=== PATIENT | female | born 1975 | race Caucasian/White ===

== ENCOUNTER 2024-03-08 14:24 | Outpatient (AMB) | payer MEDICARE, OTHER, SELFPAY ==
[2024-03-08 14:54] VITALS: BP 126/78; PULSE 62; O2SAT 96; BMI 23.4
--- NOTE | 2024-03-08 14:54 | A.OFFVIS_ITS ---
Vital Signs 03/08/24 14:54 Height 5 ft 1 in Weight 124 lb 1.924 oz BMI 23.4 BP 126/78 Blood Pressure Location Lt brachial Position Sitting Pulse 62 Pulse Source Pulse Oximeter Pulse Oximetry (%) 96 Oxygen Delivery Method Room Air Intake Visit Reasons: CTS/OA Intake Note: Patient presents for follow up on osteoarthritis, carpal tunnel syndrome, and rash on lower left leg. She states it hurts and it's itchy. Allergies adhesive tape Allergy (Mild, Verified 03/08/24 15:01) Rash cefaclor [From CECLOR] Allergy (Unknown, Unverified 03/08/24 15:01) HIVES erythromycin base [ERYTHROMYCIN BASE] Allergy (Unknown, Unverified 03/08/24 15:01) UNK Sulfa (Sulfonamide Antibiotics) [SULFA (SULFONAMIDE ANTIBIOTICS)] Allergy (Unknown, Unverified 03/08/24 15:01) HIVES z pack Allergy (Mild, Uncoded 03/08/24 15:01) hives HPI HPI CTS/OA: Details: She saw Dr. Leo in December and received cortisone injection for carpal tunnel syndrome and R 3rd finger tenosynovitis. Finger numbness and burning returned last week. She is unable to fully bend R 3rd finger. Review of Systems Const All systems reviewed & are unremarkable except as noted in HPI and below Physical Exam Vital Signs: Last Vital Signs Pulse 62 03/08/24 14:54 BP 126/78 03/08/24 14:54 Pulse Ox 96 03/08/24 14:54 Oxygen Delivery Method Room Air 03/08/24 14:54 BMI result Body Mass Index 23.4 Const Other: General: Comfortable Skin: No lesions seen MSK: No synovitis. tenderness to palpate R 3rd palmar aspect of MCP without nodule palpated. She is unable to fully flex R 3rd finger actively and remains flexed at 90 degrees. Passive flexion is intact. Assessment & Plan Assessment & Plan (1) Tenosynovitis of finger: Comment: R 3rd finger. Recurrent. She is unable to flex R 3rd finger actively but passive ROM is intact, which is concerning for flexor tendon pathology such as tendon tear. Code(s): M65.949 - Unspecified synovitis and tenosynovitis, unspecified hand Category: Medical Plan: MR Right hand without contrast RTC 1 month (2) Carpal tunnel syndrome: Comment: Bilateral. Last cortisone injection from Dr. Leo ATC 12/2023 wore off. Too soon for cortisone injection Code(s): G56.00 - Carpal tunnel syndrome, unspecified upper limb Category: Medical Qualifiers: Laterality: bilateral Qualified Code(s): G56.03 - Carpal tunnel syndrome, bilateral upper limbs Plan: RTC 1 month for bilateral cortisone injections to treat carpal tunnel syndrome Orders: Orders Aspartate Amino Transferase Today Z79.60 - intermodal owner operator truck driver (current) use of unspecified immunomodulators and immunosuppressants Alanine Aminotransferase Today Z79.60 - correction (current) use of unspecified immunomodulators and immunosuppressants Creatinine Today Z79.60 - intermodal owner operator truck driver (current) use of unspecified immunomodulato rs and immunosuppressants MR hand RT wo con Today M65.949 - Unspecified synovitis and tenosynovitis, unspecified hand Coding Level of Care Code Est Pt Level 3 (41682) Complex EM visit Add On G2211 Diagnoses Tenosynovitis of finger M65.949 Bilateral carpal tunnel syndrome G56.03 Laterality: bilateral
== END 2024-03-08 15:46 | disposition home or self-care (01) ==
PROVIDERS: PCP Internal Medicine; Visit Provider Internal Medicine Rheumatology
DX: M65.949 Unspecified synovitis and tenosynovitis, unspecified hand (principal); G56.03 Carpal tunnel syndrome, bilateral upper limbs
CPT/HCPCS: 99213; G2211

== ENCOUNTER → 2024-03-08 14:24 | Outpatient (BNVA) | payer MEDICARE, OTHER, SELFPAY | PROVIDERS: PCP Internal Medicine; Visit Provider Internal Medicine Rheumatology | DX: M65.941 Unspecified synovitis and tenosynovitis, right hand (principal); G56.03 Carpal tunnel syndrome, bilateral upper limbs | CPT/HCPCS: 99212 ==

== ENCOUNTER 2024-03-17 18:34 | Outpatient (REF) | payer MEDICARE, OTHER, SELFPAY ==
--- NOTE | ~2024-03-17 | MR_ITS ---
EXAMINATION: MR HAND WITHOUT CONTRAST RIGHT CLINICAL INFORMATION: Unspecified synovitis and tenosynovitis, unspecified hand M65.949. Tendon tear. Unable to flex right 3rd finger. Axial orientation upside down. Throbbing pain that stat at the middle finger joint sensitive to touch. I can only bend it to a certain extent, want a doctor to look at middle finger. Arthritis. Carpel to nail. Since 5 years ongoing getting worse. COMPARISON: None available. TECHNIQUE: Multisequence MR imaging of the right hand was obtained without contrast on a high-field strength scanner. FINDINGS: BONE: No marrow edema or evidence of acute osseous injury. No fracture or dislocation. Grossly intact articular cartilage. No concerning lytic or blastic osseous lesion. MUSCLES/TENDONS: The visualized flexor and extensor tendons are intact. Specifically, the third flexor digitorum tendon is unremarkable without tendon tearing or tenosynovitis. No muscle edema or evidence of acute injury. LIGAMENTS: Intact collateral ligaments. SOFT TISSUES: Synovial recess versus ganglion cyst volar to the radial styloid measuring up to 1.2 cm in greatest dimension. No soft tissue mass. Trace distal radial ulnar joint effusion. Triangular fibrocartilage complex not well evaluated on the large [id number]-[id number]-hwzp imaging. MR/MR hand RT wo con IMPRESSION: 1. The third flexor digitorum tendon is intact without evidence of acute injury. 2. Synovial recess versus ganglion cyst volar to the radial styloid measuring up to 1.2 cm. 3. Trace distal radial ulnar joint effusion. Triangular fibrocartilage complex not well evaluated on the large mlbxv-bd-vnto imaging. Electronically signed by: Mauro Murray MD 03/20/2024 01:52 PM EST
== END 2024-03-17 18:35 | disposition home or self-care (01) ==
LOC: HO.MRI 18:34
PROVIDERS: PCP Internal Medicine; Visit Provider Internal Medicine Rheumatology
DX: M65.941 Unspecified synovitis and tenosynovitis, right hand (principal)
CPT/HCPCS: 73218

== ENCOUNTER 2024-03-29 14:38 | Outpatient (AMB) | payer MEDICARE, OTHER, SELFPAY ==
[2024-03-29 15:00] VITALS: BP 140/80; PULSE 56; O2SAT 95; BMI 23.4
--- NOTE | 2024-03-29 15:00 | MHC.OFFVIS ---
Vital Signs 03/29/24 15:00 Height 5 ft 1 in Weight 124 lb BMI 23.4 BP 140/80 H Blood Pressure Location Lt brachial Position Sitting Pulse 56 Pulse Source Pulse Oximeter Pulse Oximetry (%) 95 Oxygen Delivery Method Room Air Intake Visit Reasons: Injection Intake Note: Patient presents for injections, she states she has a new problem since Lisette night, felt like her left hand collapsed. She states it was a weird sennsation from hand to upper wrist. Allergies adhesive tape Allergy (Mild, Verified 03/29/24 15:05) Rash cefaclor [From CECLOR] Allergy (Unknown, Unverified 03/29/24 15:05) HIVES erythromycin base [ERYTHROMYCIN BASE] Allergy (Unknown, Unverified 03/29/24 15:05) UNK Sulfa (Sulfonamide Antibiotics) [SULFA (SULFONAMIDE ANTIBIOTICS)] Allergy (Unknown, Unverified 03/29/24 15:05) HIVES z pack Allergy (Mild, Uncoded 03/29/24 15:05) hives HPI HPI Injection: Details: She recently started experiencing weakness affecting her left 5th finger. She reports that it felt like her finger broke off. She denies any pain. She continues to experience paraesthesias affecting bilateral hands. She also has wrist pain. Pain localized to her right 3rd MCP palmar aspect is waking her up at night. After she receives cortisone injection to right 3rd flexor tendon she has relief in pain and improved mobility. However, does not last prison. Review of Systems Const All systems reviewed & are unremarkable except as noted in HPI and below Physical Exam Vital Signs: Last Vital Signs Pulse 56 03/29/24 15:00 BP 140/80 H 03/29/24 15:00 Pulse Ox 95 03/29/24 15:00 Oxygen Delivery Method Room Air 03/29/24 15:00 BMI result Body Mass Index 23.4 Const Other: General: Comfortable Skin: No lesions seen MSK: No synovitis. tenderness to palpate R 3rd palmar aspect of MCP with nodule palpated. She is unable to fully flex R 3rd finger actively and remains flexed at 90 degrees. Passive flexion is intact. Tender PIP without synovitis. Tender wrists bilateral. Decreased sensation of left 4th and 5th finger dorsally and ulnar side. She has reduced pincer care specialist of left 4th and 5th finger as she performs that with difficulty. The rest of the fingers have good pincer care specialist. Office Procedures AMB Joint Injection/Aspiration Joint Injection/Aspiration Details: Bilateral carpal tunnel Prep: site was prepped using aseptic technique Injected into each site: 20 mg of, Kenalog, with 0.5 mL of and 1% plain lidocaine Procedure: The patient tolerated the procedure well. Postprocedure protocol was discussed with patient. CPT carpal tunnel Coding Additional procedure code (CPT) needed ( bilateral procedure) AMB Joint Injection/Aspiration Coding Additional procedure code (CPT) needed ( bilateral procedure) AMB Joint Injection/Aspiration Joint Injection/Aspiration Details: injection tendon sheath right 3rd flexor tendon Prep: site was prepped using aseptic technique Injected: 10 mg of, Kenalog, with 0.25 mL of and 1% plain lidocaine Procedure: The patient tolerated the procedure well Coding Additional procedure code (CPT) needed (66617) Office Meds lidocaine (PF) 10 mg/mL (1 %) injection solution Performing Provider: Christoph Odell MD [place] [facility] [place] [facility] Administered by: Christoph Odell MD on 03/29/24 16:18 Dose Route Admin Location Dispensed Lot Number Expiration Date [facility] Landscape Account Manager 5 mg Infiltration 2 mL [id number] FR[employer] Kenalog 40 mg/mL suspension for injection Performing Provider: Christoph Odell MD [place]forming [place] [facility] [facility] Administered by: Christoph Odell MD on 03/29/24 16:18 Dose Route Admin Location Dispensed Lot Number Expiration Date [facility] Landscape Account [employer] 20 mg Tendon Sheath Inj. 1 mL [id number] [employer] lidocaine (PF) 10 mg/mL (1 %) injection solution Performing Provider: Christoph Odell MD [place]forming [place] [facility] [place] [facility] Administered by: Christoph Odell MD on 03/29/24 16:18 Dose Route Admin Location Dispensed Lot Number Expiration Date [facility] Landscape Account Manager 5 mg Infiltration 2 mL [id number] FR[employer]ENI[employer] K[employer] Kenalog 40 mg/mL suspension for injection Performing Provider: Christoph Odell MD Performing [place] [facility] [place] [facility] Administered by: Christoph Odell MD on 03/29/24 16:18 Dose Route Admin Location Dispensed Lot Number Expiration Date [facility] Landscape Account Manager 20 mg Tendon Sheath Inj. 1 mL AP [id number] [employer] lidocaine (PF) 10 mg/mL (1 %) injection solution Performing Provider: Christoph Odell MD Performing [place] [facility] [place] [facility] Administered by: Christoph Odell MD on 03/29/24 16:18 Dose Route Admin Location Dispensed Lot Number Expiration Date [facility] Landscape Account Manager 2.5 mg Infiltration 2 mL [id number] [facility] Kenalog 40 mg/mL suspension for injection Performing Provider: Christoph Odell MD Performing [place] [facility] [place] [facility] Administered by: Christoph Odell MD on 03/29/24 16:18 Dose Route Admin Location Dispensed Lot Number Expiration Date [facility] Landscape Account Manager 10 mg Tendon Sheath Inj. 1 mL AP [id number] [employer] Assessment & Plan Assessment & Plan (1) Left hand weakness: Comment: Acute onset left 4th and 5th finger weakness with decreased sensation is concern for ulnar neuropathy. Code(s): R29.898 - Other symptoms and signs involving the musculoskeletal system Category: Medical Plan: EMG ordered of left arm Return to clinic in 3 months (2) Tenosynovitis of finger: Comment: R 3rd finger. Recurrent. She is unable to flex R 3rd finger actively but passive ROM is intact, which is concerning for flexor tendon pathology such as tendon tear but MRI of right hand without contrast did not reveal pathology of left flexor tendon including tenosynovitis. Incidentally she has a synovial recess versus ganglion cyst radial aspect of wrists 1.2 cm, which is likely benign and not contributing to her symptoms. Interestingly, MRI did reveal trace joint effusion a radial carpal joint, which can be seen in inflammatory arthritis. In the setting of chronic PIP pain and previous history of positive rheumatoid factor I am recommending further pursuing MRI imaging study with contrast for evaluation of subclinical inflammatory arthritis. Code(s): M65.949 - Unspecified synovitis and tenosynovitis, unspecified hand Category: Medical Plan: MRI right hand with and without contrast has been ordered. I am recommending scheduling MRI prior to next appointment when she is due for next set of cortisone injections to relieve her pain I treated her current symptoms with right 3rd tendon sheath cortisone injection Continue meloxicam 15 mg daily Recent labs reviewed 02/2024 [facility]ing [facility] Return to clinic in 3 months (3) Carpal tunnel syndrome: Comment: Bilateral. Uncontrolled pain and numbness in hands. Code(s): G56.00 - Carpal tunnel syndrome, unspecified upper limb Category: Medical Qualifiers: Laterality: bilateral Qualified Code(s): G56.03 - Carpal tunnel syndrome, bilateral upper limbs Plan: She received bilateral cortisone injections to treat bilateral carpal tunnel syndrome Return to clinic in 3 months Orders: Orders AMB Joint Injection/Aspiration Today G56.03 - Carpal tunnel syndrome, bilateral upper limbs NE electromyogram (EMG) Today R29.898 - Other symptoms and signs involving the musculoskeletal system MR hand RT wo/w con Today M65.949 - Unspecified synovitis and tenosynovitis, unspecified hand AMB Joint Injection/Aspiration Today G56.03 - Carpal tunnel syndrome, bilateral upper limbs, M65.949 - Unspecified synovitis and tenosynovitis, unspecified hand AMB Joint Injection/Aspiration Today M65.949 - Unspecified synovitis and tenosynovitis, unspecified hand Medications: Changed From meloxicam 15 mg PO DAILY To meloxicam Replace previous prescriptions 15 mg PO DAILY 90 tabs 0RF From meloxicam Replace previous prescriptions 15 mg PO DAILY 90 tabs 0RF To meloxicam Replace previous prescriptions. Fill this rx with one refill. 15 mg PO DAILY 90 tabs 1RF Coding Level of Care Code Est Pt Level 4 (95598) Complex EM visit Add On G2211 Diagnoses Left hand weakness R29.898 Tenosynovitis of finger M65.949 Bilateral carpal tunnel syndrome G56.03 Laterality: bilateral
== END 2024-03-29 15:59 | disposition home or self-care (01) ==
PROVIDERS: PCP Internal Medicine; Visit Provider Internal Medicine Rheumatology
DX: R29.898 Other symptoms and signs involving the musculoskeletal system (principal); M65.949 Unspecified synovitis and tenosynovitis, unspecified hand; G56.03 Carpal tunnel syndrome, bilateral upper limbs
CPT/HCPCS: 99214; G2211

== ENCOUNTER → 2024-03-29 14:38 | Outpatient (BNVA) | payer MEDICARE, OTHER, SELFPAY | PROVIDERS: PCP Internal Medicine; Visit Provider Internal Medicine Rheumatology | DX: M65.949 Unspecified synovitis and tenosynovitis, unspecified hand (principal); R29.898 Other symptoms and signs involving the musculoskeletal system; G56.03 Carpal tunnel syndrome, bilateral upper limbs | CPT/HCPCS: 20526; 20550; 99212; J2003; J3300 ==

== ENCOUNTER 2024-05-24 12:49 | Outpatient (REF) | payer MEDICARE, OTHER, SELFPAY ==
--- NOTE | 2024-05-24 13:00 | EMG_ITS ---
Chief complaint: Acute onset paresthesia and weakness on left hand, 4th and 5th digits, medial forearm New diagnosis of RA per patient. History of Carpal Tunnel Syndrome, no surgery yet. Reason for referral: Evaluate for Carpal Tunnel Syndrome versus ulnar neuropathy Referred by: Dr. Odell Procedure done: Left upper extremity NCS/EMG Precautions and/or limitations: None The limb temperature was monitored continuously and remained between 32-36 degrees C during the performance of the NCS. Ulnar motor NCS was performed with moderate elbow flexion between 70-90 degrees, with across-elbow distance of 10 cm. Nerve Conduction Studies Anti Sensory Summary Table ?Stim Site NR Onset (ms) Norm Onset (ms) Peak (ms) Norm Peak (ms) O-P Amp (?V) Norm O-P Amp Site1 Site2 Delta-0 (ms) Dist (cm) Iglesia (m/s) Norm Iglesia (m/s) Left Median Anti Sensory (2nd Digit) Wrist ? 3.4 4.3 <3.6 8.5 >10 Wrist 2nd Digit 3.4 14.0 41 Left Radial Anti Sensory (Thumb) Forearm ? 1.8 2.3 <3.1 31.4 Forearm Thumb 1.8 0.0 Left Ulnar Anti Sensory (5th Digit) Wrist ? 2.5 3.3 <3.7 21.1 >15.0 Wrist 5th Digit 2.5 14.0 56 Motor Summary Table ?Stim Site NR Onset (ms) Norm Onset (ms) O-P Amp (mV) Norm O-P Amp iAmp (mV) Amp (1st) (%) Site1 Site2 Delta-0 (ms) Dist (cm) Iglesia (m/s) Norm Iglesia (m/s) Left Median Motor (Abd Poll Brev) Wrist ? 4.5 <3.9 7.4 >4.5 8.5 100.0 Elbow Wrist 3.3 17.5 53 >45 Elbow ? 7.8 7.1 8.1 95.9 Left Ulnar Motor (Abd Dig Minimi) Wrist ? 2.8 <3.0 7.6 >5 9.1 100.0 B Elbow Wrist 2.7 15.0 56 >45 B Elbow ? 5.5 6.6 8.0 86.8 A Elbow B Elbow 1.5 10.0 67 >45 A Elbow ? 7.0 6.8 8.2 89.5 EMG ?Side Muscle Nerve Root Ins Act Fibs Psw Amp Dur Poly Recrt Int Pat Comment Left 1stDorInt Ulnar C8-T1 Nml Nml Nml Nml Nml 0 Nml Complete Left FlexCarRad Median C6-7 Nml Nml Nml Nml Nml 0 Nml Complete Left Biceps Musculocut C5-6 Nml Nml Nml Nml Nml 0 Nml Complete Left Triceps Radial C6-7-8 Nml Nml Nml Nml Nml 0 Nml Complete Left Deltoid Axillary C5-6 Nml Nml Nml Nml Nml 0 Nml Complete FINDINGS: Left median motor nerve showed prolonged distal latency, normal amplitude and normal conduction velocity. Left median sensory nerve showed prolonged peak latency and small amplitude. All other nerves tested were within normal. Concentric needle EMG was performed in selected muscles of the left upper extremity. Study did not reveal signs of electric abnormalities as shown in the table above. IMPRESSION: 1. This is an abnormal study. 2. There is electrodiagnostic evidence for left moderate-severe median neuropathy at the wrist, consistent with carpal tunnel syndrome. 3. There is no electrodiagnostic evidence for ulnar neuropathy, brachial plexopathy, or cervical radiculopathy. Thank you for your kind referral. Cathy Baltazar MD, MARY Board Certified, [place] Board [employer] and Rehabilitation (ABPMR) Board Certified, [place] Board [employer] Electrodiagnostic Medicine (ABEM) CODIN 59429 MTDD
--- OUTSIDE RECORDS SUMMARY | 2024-05-24 15:13 | XMS_ITS | Clinical Summary ---
Author Organization [facility] Address [address] [place] [address] Care Team Providers Care Credit Associate Name Role Phone WilmaEfremw Primary Care Provider [phone] Allergies Active Allergy Reactions Criticality Noted Date Comments Adhesive Rash Low 12/31/2019 Azithromycin Swelling High 02/02/2019 Z-stanislav Cefaclor Hives Medium 05/10/2017 Clarithromycin Unknown 09/22/2022 Codeine Hives Medium 05/10/2017 Erythromycin Hives Medium 05/10/2017 Sulfa (Sulfonamide Antibiotics) Anaphylaxis High Sulfamethoxazole-Trimethoprim Unknown 2022 Medications traZODone (DESYREL) 150 mg tablet SMARTSI Tablet(s) By Mouth Every Night Active sucralfate (CARAFATE) 1 g/10 mL suspension SMARTSIG:Millili ter(s) By Mouth Active Lyrica 225 mg capsule Take 1 capsule by mouth 2 times a day. Active pantoprazole DR (PROTONIX) 20 mg tablet SMARTSI Tablet(s) By Mouth Twice Daily Active oxyCODONE-aceta minophen (PERCOCET) 10-325 mg per tablet SMARTSI Tablet(s) By Mouth Every 6 Hours PRN Active ondansetron (ZOFRAN) 4 mg tablet TAKE 1 TABLET BY MOUTH THREE TIMES A DAY NEEDED FOR NAUSEA Active meloxicam (MOBIC) 15 mg tablet SMARTSI Tablet(s) By Mouth Daily 4 Active fluticasone propionate (FLONASE) 50 mcg/actuation nasal spray Administer 1 spray into each nostril 2 times a day. Active escitalopram (LEXAPRO) 20 mg tablet SMARTSI Tablet(s) By Mouth Every Morning Active Tdap vaccine (Boostrix Tdap) 2.5-8-5 Lf-mcg-Lf/0.5mL injection syringe TO BE ADMINISTERED BY PHARMACIST FOR IMMUNIZATION Active clonazePAM (KlonoPIN) 1 mg tablet 1 tablet. Active buprenorphine (BUTRANS) 7.5 mcg/hour SMARTSI Patch(s) Topical Once a Week Active ascorbic acid, vitamin C, (ascorbic acid) 250 mg tablet,chewable Chew and swallow by mouth. 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) 04/09/2024 Telephone [facility] [address] [place] [address] [phone] Punch Press Feeder: Fay Sánchez Telephone Intake, Staff 03/26/2024 Telephone [facility] [address] [place] [address] [phone] Punch Press Feeder: Lisa Mackay MD 03/07/2024 Orders Only [facility] [address] [place] [address] [phone] Punch Press Feeder: Lisa Mackay MD Focal nodular hyperplasia of liver (Primary Dx); Hepatic adenoma 03/01/2024 myChart Message [facility] [address] [place] [phone] Punch Press Feeder: Lisa Mackay MD MRI and follow up 02/29/2024 Telephone [facility] [address] [place] [phone] Punch Press Feeder: Isaura Lim Telephone Intake, Staff PAC Appt Request - Established; PAC Patient Request Call Back; PAC Order Request from Last 3 Months Social History Tobacco Use Types Packs/Day Years Used Date Smoking Tobacco: Every Day Cigarettes Smokeless Tobacco: Never Tobacco Cessation:Ready to Q uit: Not Asked; Counseling Given: Not Answered Alcohol Use Standard Drinks/Week Comments Not Currently 0 (1 standard drink = 0.6 oz pur e alcohol) Comments Unknown Sex and Gender Information Value Date Recorded Sex Assigned at Female 05/12/2023 10:04 AM EST Legal Sex Female 3:44 PM EDT Gender Identity Female 05/12/2023 10:04 AM EST Sexual Orientation Straight 05/12/2023 10 :04 AM EST Last Filed Vital Signs Vital Sign Reading Time Taken Comments Blood Pressure 115/76 04/10/2024 1:48 PM EST Pulse 66 04/10/2024 1:48 PM EST Temperature 36.1 ??C (97 ??F) 05/17/2023 9:49 AM EST Respiratory Rate 20 05/17/2023 9:49 AM EST Oxygen Saturation 96% 04/10/2024 1:48 PM EST Inhaled Oxygen Concentration - - Weight 52 kg (114 lb 10.2 oz) 05/17/2023 9:49 AM EST Height - - Body Mass Index - - Plan of Treatment Upcoming Encounters Date Type Department Care Team (Late st Contact Info) Description 11/21/2024 9:30 AM EDT Follow-Up [facility] [address] [place] [phone] Punch Press Feeder: Lisa Mackay MD [address] [place] [phone] Health Maintenance Due Date Last Done Comments Cervical Cancer Screening 1975 Cologuard 1975 FOBT / Fit Test 1975 HIV Screening 1975 HPV and Pap Smear 1975 Hepatitis C Screening 1975 Pap Smear 1975 Sigmoidoscopy 1975 Hepatitis B Vaccines (1 of 3 - 19+ 3-dose series) 1994 Mammogram 2015 COVID-19 Vaccine (2023-2 5 season) 2023 12/16/2022, 01/07/2022, 02/27/2021, Additional history exists Alcohol/Substance Use Screening 03/28/2024 Depression Screening and Follow-Up 03/28/2024 Social Drivers of Health Salma ual Screening 03/28/2024 Colon Cancer Screening 11/07/2028 Colonoscopy 11/07/2028 11/07/2018 DTaP,Tdap,and Td Vaccines (5 - Td or Tdap) 11/25/2029 11/26/2019, 09/20/2014, 08/20/2010, Additional history exists RSV Vaccine (60+ years old a nd patients) (1 - 1-dose 75+ series) 2050 Pneumococcal Vaccine: Pediat chiqui (0-5 Years) and At-Risk Patients (6-50 Years) Completed 01/06/2023, 07/06/2021 Influenza Vaccine Completed 03/09/2024, , 01/01/2021, Additional history exists Procedures * Due to [place] [employer] law, this organization might not be sharing negative HIV tests. Procedure Name Priority Date/Time Associated Diagnosis Comments AMB EXTERNAL MRI ABDOMEN, OU TSIDE RESULT 05/08/2024 HM COLONOSCOPY 11/07/2018 from Last 3 Months or Most Recently Relevant to Health Maintenance Results * Due to [place] [employer] law, this organization might not be sharing negative HIV tests. * MRI Abdomen, Outside Result (05/08/2024) Anatomical Region Laterality Modality Other 05/08/2024 us Onbase Scan [facility] AMB EXTERNAL RESULT PROCEDURE S Final Result * COLONOSCOPY (11/07/2018) 11/07/2018 us Onbase Scan [facility] HEALTH MAINTENANCE Final Resu lt from Last 3 Months or Most Recently Relevant to Health Maintenance Insurance [facility]ICARE [facility] [address] HS/FREE CARE Care Teams Credit Associate Relationship Specialty Start Date End Date George Dillon [address] [place] [phone] PCP - General Internal Medicine 08/16/22
--- OUTSIDE RECORDS SUMMARY | 2024-05-24 15:13 | XMS_ITS | Encounter Summary ---
Author Organization [facility] Address [address] [place] [address] Care Team Providers Care Web Marketing Assistant Name Role Phone George Dillon Primary Care Provider [phone] Encounter Details Date Type Department Care Team (Late st Contact Info) Description 05/09/2024 myChart Message [facility] [address] [place] [address] [phone] Manager Operations And Procurement: Lisa Mackay MD [address] [place] [phone] MRI Social History Tobacco Use Types Packs/Day Years Used Date Smoking Tobacco: Every Day Cigarettes Smokeless Tobacco: Never Alcohol Use Standard Drinks/Week Comments Not Currently 0 (1 standard drink = 0.6 oz pur e alcohol) Comments Unknown Sex and Gender Information Value Date Recorded Sex Assigned at Female 05/12/2023 10:04 AM EST Legal Sex Female 3:44 PM EDT Gender Identity Female 05/12/2023 10:04 AM EST Sexual Orientation Straight 05/12/2023 10 :04 AM EST documented as of this encounter Plan of Treatment Upcoming Encounters Date Type Department Care Team (Late st Contact Info) Description 11/21/2024 9:30 AM EDT Follow-Up [facility] [address] [place] [address] [phone] Manager Operations And Procurement: Lisa Mackay MD [address] [place] [phone] documented as of this encounter Visit Diagnoses Not on filedocumented in this encounter Care Teams Web Marketing Assistant Relationship Specialty Start Date End Date George Dillon [address] [place] [phone] PCP - General Internal Medicine 08/16/22 documented as of this encounter
--- OUTSIDE RECORDS SUMMARY | 2024-05-24 15:13 | XMS_ITS | Encounter Summary ---
Author Organization [facility] Address [address] [place] [address] Care Team Providers Care Environmental Specialist Name Role Phone George Dillon Primary Care Provider [phone] Encounter Details Date Type Department Care Team (Late st Contact Info) Description 04/09/2024 Telephone [facility] [address] [place] [address] Deckhand Fishing Vessel: Fay Sánchez Telephone Intake, Staff Social History Tobacco Use Types Packs/Day Years [...] AM EST documented as of this encounter Miscellaneous Notes * Telephone Encounter - Thelma Salvador - 04/09/2024 10:59 AM EST Caller: pt Reason for call sched appt We recvd call from pt - checking for our location - Pt did confirm - and location - mg documented in this encounter Plan of Treatment Upcoming Encounters Date Type Department Care Team (Late st Contact Info) Description 11/21/2024 9:30 AM EDT Follow-Up [facility] [address] [place] [phone] Deckhand Fishing Vessel: Lisa Mackay MD [address] [place] [address] [phone] documented as of this encounter Visit Diagnoses Not on filedocumented in this encounter Care Teams Environmental Specialist Relationship Specialty Start Date End Date George Dillon [address] [place] [phone] PCP - General Internal Medicine 08/16/22 documented as of this encounter
--- OUTSIDE RECORDS SUMMARY | 2024-05-24 15:13 | XMS_ITS | Referral Summary ---
Author Organization [facility] Address [address] [place] [address] Care Team Providers Care Air Route Controller Name Role Phone Wilma George Primary Care Provider [phone] Encounters Date Type Department Care Team Description 05/09/2024 myChart Message [facility] [address] [place] [phone] Ground Defence Officer: Lisa Mackay MD MRI 04/17/2024 Telephone [facility] [address] [place] [phone] Ground Defence Officer: Fay Sánchez Telephone Intake, Staff 04/10/2024 2:00 PM EST Office Visit [facility] [address] [place] [address] 17050 Ground Defence Officer: Juan Puri MD PhD 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) 04/09/2024 Telephone [facility] [address] [place] [address] [phone] Ground Defence Officer: Fay Sánchez Telephone Intake, Staff 03/26/2024 Telephone [facility] [address] [place] [address] 10966 Ground Defence Officer: Lisa Mackay MD 03/07/2024 Orders Only [facility] [address] [place] [address] 44919 Ground Defence Officer: Lisa Mackay MD Focal nodular hyperplasia of liver (Primary Dx); Hepatic adenoma 03/01/2024 myChart Message [facility] [address] [place] [address] 20811 Ground Defence Officer: Lisa Mackay MD MRI and follow up 02/29/2024 Telephone [facility] [address] [place] [address] 72217 Ground Defence Officer: Isaura Lim Telephone Intake, Staff PAC Appt Request - Established; PAC Patient Request Call Back; PAC Order Request from Last 3 Months Allergies Active Allergy Reactions Criticality Noted Date [...] mg tablet SMARTSI Tablet(s) By Mouth Daily Active fluticasone propionate (FLONASE) 50 mcg/actuation nasal [...] mg tablet,chewable Chew and swallow by mouth. Active Social History Tobacco Use Types Packs/Day Years [...] Info) Description 11/21/2024 9:30 AM EDT Follow-Up [facility] [address] [place] [address] Ground Defence Officer: Lisa Mackay MD [address] [place] [phone] Procedures * Due to [place] [employer] law, this organization might not be sharing negative HIV tests. Procedure Name Priority Date/Time Associated Diagnosis Comments AMB EXTERNAL MRI ABDOMEN, OU TSIDE RESULT 05/08/2024 COLONOSCOPY 11/07/2018 from Last 3 Months or Most Recently Relevant to Health Maintenance Results * Due to [place] [employer] law, this organization might not be sharing negative HIV tests. * MRI Abdomen, Outside Result (05/08/2024) Anatomical Region Laterality Modality Other 05/08/2024 us Onbase Scan [facility] AMB EXTERNAL RESULT PROCEDURE S Final Result * COLONOSCOPY (11/07/2018) 11/07/2018 us Onbase Scan [facility] HEALTH MAINTENANCE Final Resu lt from Last 3 Months or Most Recently Relevant to Health Maintenance Insurance [id number] [place] [address] MEDICARE [facility] HSNO/FREE CARE Care Teams Air Route Controller Relationship Specialty Start Date End Date George Dillon [address] [place] [phone] PCP - General Internal Medicine 08/16/22
--- OUTSIDE RECORDS SUMMARY | 2024-05-24 15:13 | XMS_ITS | Encounter Summary ---
Author Organization [facility] Address [address] [place] [address] Care Team Providers Care Carbon Cleaner Name Role Phone AlmontGeorge ramirez Primary Care Provider [phone] Encounter Details Date Type Department Care Team (Late st Contact Info) Description 03/26/2024 Telephone [facility] [address] [place] [address] Order Make Up Clerk: Lisa Mackay MD [address] [place] [address] Social History Tobacco Use Types Packs/Day Years [...] encounter Miscellaneous Notes * Telephone Encounter - Raymundo Drummond - 04/03/2024 3:03 PM EST PT called while sick and stated someone told her we faxed her MRI order to sim PT called sim and was told [facility] does not have the order. PT requested we refax the order to [facility]. It has been succesfully sent. * Telephone Encounter - Kianna Rivers - 04/03/2024 2:56 PM EST Pt calling stating that she is very sick, pt states that she is throwing up every day and that it is really impacting her quality of life. Pt wants to know when she will be able to schedule her MRI and that she needs a much sooner appt because she is very sick. Pt is very upset stating that no one will help her. Pt would like a call back from clinical staff [phone] * Telephone Encounter - Jean Claude Russo - 03/26/2024 10:45 AM EST Was wanting someone to please reach back out to her as she has some questions * Telephone Encounter - Jean Claude Russo - 03/26/2024 10:40 AM EST Patient calling to return a message she would like her MRI done at the same place she's been getting them done which is at [facility] in [place] was asking if the can start working on the approval for her MRI with and without contrast she says it has to go through [facility] MRI documented in this encounter Plan of Treatment Upcoming Encounters Date Type Department Care Team (Late st Contact Info) Description 11/21/2024 9:30 AM EDT Follow-Up [facility] [address] [place] [address] Order Make Up Clerk: Lisa Mackay MD [address] [place] [address] documented as of this encounter Visit Diagnoses Not on filedocumented in this encounter Care Teams Carbon Cleaner Relationship Specialty Start Date End Date George Dillon [address] [place] [phone] PCP - General Internal Medicine 08/16/22 documented as of this encounter
--- OUTSIDE RECORDS SUMMARY | 2024-05-24 15:13 | XMS_ITS | Clinical Summary ---
Author Organization [facility] [employer] Address [address] [place] [address] 7 [place] [address] Care Team Providers Care Spring Coiler Hand Name Role Phone Marian, Pilar Unavailable Unavailable Social History Tobacco Use Types Packs/Day Years Used Date Smoking Tobacco: Never Assessed Comments Unknown Sex and Gender Information Value Date Recorded Sex Assigned at Female 09/01/2022 4:07 PM EDT Legal Sex Female 3:51 PM EDT Gender Identity Female 09/01/2022 4:07 PM EDT Sexual Orientation Not on file Plan of Treatment Health Maintenance Due Date Last Done Comments CT Colonography 1975 Colonoscopy 1975 Colorectal Cancer Screening 1975 Depression Screening 1975 FIT DNA/Cologuard 1975 FIT 1975 FOBT 1975 Sigmoidoscopy 1975 Alcohol/Substance Use Screening 1987 Tobacco Screening 1987 Family Planning (PISQ) 1990 Hepatitis B Vaccines (1 of 3 - 19+ 3-dose series) 1994 Pap Smear 1996 Cervical Cancer Screening 2005 HPV/Cotest 2005 Mammogram 2015 COVID-19 Vaccine ( season) 2023 12/16/2022, 02/27/2021, 07/03/2020, Additional history exists Influenza Vaccine (#1) 2023 , 01/01/2021, 01/26/2017, Additional history exists Zoster Vaccines (1 of 2) 2025 DTaP/Tdap/Td Vaccines (4 - Td or Tdap) 11/25/2029 11/26/2019, 08/20/2010, 05/19/2010 RSV Patients and Patients Aged 60 years or older (1 - 1-dose 75+ series) 2050 Pneumococcal Vaccine: Pediatrics (0 to 5 Years) and At-Risk Patients (6 to 49) Years) Aged Out 01/06/2023, 07/06/2021 No longer eligibl e based on patient's age to complete this topic HIB Vaccines Aged Out No longer eligi ble based on patient's age to complete this topic HPV Vaccines Aged Out No longer eligi ble based on patient's age to complete this topic Hepatitis A Vaccines Aged Out No long er eligible based on patient's age to complete this topic IPV Vaccines Aged Out No longer eligi ble based on patient's age to complete this topic Meningococcal Vaccine Aged Out No vani kelsy eligible based on patient's age to complete this topic RSV under 20 months Aged Out No longe r eligible based on patient's age to complete this topic Rotavirus Vaccines Aged Out No longer eligible based on patient's age to complete this topic Care Teams Spring Coiler Hand Relationship Specialty Start Date End Date Pilar [facility] Navigator Financial Counseling and Assistance Services 09/01/22
== END 2024-05-24 12:50 | disposition home or self-care (01) ==
LOC: HO.NEURO 12:49
PROVIDERS: PCP Internal Medicine; Visit Provider Internal Medicine Rheumatology
DX: R29.898 Other symptoms and signs involving the musculoskeletal system (principal)
CPT/HCPCS: 95886; 95909

== ENCOUNTER → 2024-05-24 13:17 | Outpatient (BNV) | payer MEDICARE, OTHER, SELFPAY | PROVIDERS: PCP Internal Medicine; Visit Provider Physical Medicine & Rehabilitation | DX: G56.02 Carpal tunnel syndrome, left upper limb (principal) | CPT/HCPCS: 95886; 95909 ==

== ENCOUNTER 2024-06-20 12:58 | Outpatient (REF) | payer MEDICARE, OTHER, SELFPAY ==
--- NOTE | ~2024-06-20 | MR_ITS ---
CLINICAL HISTORY: M65.949 - Unspecified synovitis and tenosynovitis, unspecified hand MR right hand with and without gadolinium Comparison: None Findings: No acute fracture or pathologic bone lesion. No effusion. Regional ligaments are intact. Flexor and extensor tendons are intact. Intact triangular fibrocartilage complex. The flexor retinaculum is intact. Unremarkable median and ulnar nerves. IMPRESSION: Unremarkable hand MRI. This document has been electronically signed by: Wei Cerrato MD on 06/22/2024 08:24:14
[2024-06-20] MEDS: gadobutroL 7.5 ML VIAL IVPUSH (13:49)
--- OUTSIDE RECORDS SUMMARY | 2024-06-20 15:23 | XMS_ITS | Referral Summary ---
Author Organization [facility] Address [address] [place] [address] Care Team Providers Care Unit Receptionist Name Role Phone GlencoeGeorge ramirez Primary Care Provider Encounters Date Type Department Care Team Description 05/09/2024 myChart Message [facility] [address] [place] [phone] Prototyper: Lisa Mackay MD [facility] 04/17/2024 Telephone [facility] [address] [place] [address] Prototyper: Fay Sánchez Telephone Intake, Staff 04/10/2024 2:00 PM EST Office Visit [facility] [address] [place] [address] Prototyper: Juan Puri MD PhD 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 3 Active Social History Tobacco Use Types Packs/Day [...] EDT Follow-Up [facility] [address] [place] [address] Prototyper: Lisa Mackay MD [address] [place] [address] Procedures * Due to [place] [employer] law, this organization might not be sharing negative HIV tests. Procedure Name Priority Date/Time Associated Diagnosis Comments AMB EXTERNAL MRI ABDOMEN, OU TSIDE RESULT 05/08/2024 HM COLONOSCOPY 11/07/2018 from Last 3 Months or Most Recently Relevant to Health Maintenance Results * Due to [place] [employer] law, this organization might not be sharing negative HIV tests. * MRI Abdomen, Outside Result (05/08/2024) Anatomical Region Laterality Modality Other 05/08/2024 us Onbase Scan [facility] AMB EXTERNAL RESULT PROCEDURE S Final Result * HM COLONOSCOPY (11/07/2018) 11/07/2018 us Onbase Scan [facility] Final Resu lt from Last 3 Months or Most Recently Relevant to Health Maintenance Insurance MEDICARE [facility] HSNO/FREE CARE Care Teams Unit Receptionist Relationship Specialty Start Date End Date George Dillon [address] [place] [phone] PCP - General Internal Medicine 08/16/22
--- OUTSIDE RECORDS SUMMARY | 2024-06-20 15:23 | XMS_ITS | Clinical Summary ---
Author Organization [facility] [employer] Address [address] [place] [address] 7 [place] [address] Care Team Providers Care Foundry Worker Apprentice Name Role Phone Marian, Pilar Unavailable Unavailable [...] age to complete this topic Care Teams Foundry Worker Apprentice Relationship Specialty Start Date End Date Pilar [facility] Navigator Financial Counseling and Assistance Services 09/01/22
--- OUTSIDE RECORDS SUMMARY | 2024-06-20 15:23 | XMS_ITS | Data Portability ---
Author Organization [place] [facility] Address [address] [place] [id number] Care Team Providers Care Returned Goods Inspector Name Role Phone REGINA SALGADO Primary Care Provider TERRI AVILA OTHER KAMRON CABALLERO OTHER [facility] ENDOCRINOLOGY AND DIABETES SCHEDULING O THER PAPA SUMMERS OTHER SAMIRA DONALD OTHER Assessment Encounter Date Assessment Date Assessment LastModified by Organization Details LastModified Time 02/15/2020 02/15/2020 Overview/History: Patient woke yesterday with a fever of 101.0 that escalated to a reported 104.0. She also complains of headache behind the eyes that started yesterday. She denies any exposure to known covid cases. Exam: Patient VSS, she is hypotensive at 90/60 but states that this is her norm. Sodium by ISTAT is 133. Otherwise, benign exam findings and patient appears well/non-toxic. DDx considered, but not limited to: Covid may be likely given temperature and headache symptoms Flu A & B not likely given negative rapid test this visit Pneumonia not likely given clear lungs, exam findings Work up/Results: Istat 8 Rapid Flu negative Covid sent to lab Plan/Discussion: 1. Hydrate with electrolyte solution given your sodium is low at 133 2. Contact patient once covid results obtained 3. Continue to quarantine until you are symptom free x 3 days and know covid results. 4. Discussed symptoms to contact PCP vs. when to go to ED. Patient understands discussion and is able to reiterate all. No questions at this time. Proper Personal Protective Equipment (PPE), including surgical mask with face-shield, gloves, gown and shoe covers were donned and doffed appropriately and all equipment cleaned using approved technique with germicidal disposable wipes prior to and after care of this patient according to [facility]'s infection prevention protocols. In order to obtain further information and compare any laboratory results/values, I have accessed old patient records. This information was pertinent in my medical decision making today. Lab Results BMP + ionized calcium, serum or plasma glu: 146mg/dL ref: 70-105 BUN: 18mg/dL ref: 8-26 crea: 1.0mg/dL ref: 0.6-1.3 Na: 133mmol/L ref: 138-146 K: 3.5mmol/L ref: 3.5-4.9 cL: 98mmol/L ref: 98-109 TCO2: 25mmol/L ref: 24-29 angap: 15mmol/L ref: 10-20 ica: 1.19mmol/L ref: 1.12-1.32 HCT: 46%pcv ref: 38-51 Hb: 15.6g/dL ref: 12-17 Time On Scene with Patient: 00:52:14 Not available 02/20/2020 10:41:32 02/25/2020 02/25/2020 Proper Personal Protective Equipment (PPE), including gloves, gown, shoe covers, eye protection and masks were donned and doffed appropriately and all equipment cleaned using approved technique with germicidal disposable wipes prior to and after care of this patient according to [facility]'s infection prevention protocols. This patient is new to this provider Overview/History: 44 yo female with > 10 days of fever, OSBORNE, myalgia, arthralgia and nausea, recently started on Amoxicillin 500 mg PO TID by her PCP to cover bacterial sinusitis for which she has a chronic history of. Recent Lyme reflex study was negative, SARS CoV-2 negative. Exam: Non-toxic appearing, well nourished. A/Ox3, HEENT: Normal cephalic, skin intact. normal mucous membranes, no evidence of foreign objects. nares patent bilaterally, no evidence of bleeding or discharge, normal mucous membranes. No evidence of thrush, normal appearing pharynx, non erythemic, no exudate present, no evidence of cobble stoning. Normal lymph nodes, no lymphedema or adenopathy. LS RLL rales , all other Lung hardwick CTA bilaterally. Normal RR on RA. No use of accessory muscles. HR and rhythm regular. S1, S2. Grade II/ systolic murmur best heard at the apex, radiating to her left axilla, no gallop, or rub, + JVP estimated at 15 cm H 2 O sitting up at 90 degrees. Normal pulses. No edema. BS x4 quad. Abd soft, non-tender and non-distended. No hepatosplenomegaly . mild bilateral CVA R > L, no suprapubic tenderness. Normal ROM, ambulating well around home without assistive device. Good CMS present. No rash, erythema or ecchymosis. Skin is clean dry and intact without evidence of wounds or lacerations. DDx considered, but not limited to: CAP with rales RLL and persistent fever, chills, OSBORNE, myalgia, arthralgia, nausea, fatigue, malaise. Pleural effusion secondary to valvulopathy causing high filling pressures. Possible hepatic back flow issue related to subjective endorsement of liver adenoma by patient. Work up/Results: SARS CoV-2 TEO, Urine dipstick, Urine Culture, CBC w/diff, BMP, pro-BNP, POC Chem 8 02/12 Lyme reflex < 0.91, 02/15/20 SARS CoV-2 negative, Plan/Discussion: Prescribed Zofran 4 mg PO PRN for nausea, ordered CXR for possible PNA, Collected oV-2 TEO, Urine dipstick, Urine Culture, CBC w/diff, BMP, pro-BNP, POC Chem 8 which the latter revealed serum NA of 134, IV start with 18 guage in left AC by [facility] under my supervision for IV fluids for rehydration: 500 ml of 0.9% sodium chloride over 40 minutes. patient tolerated procedure well. Discussed with patient her need to follow up with her PCP and practice consultant tomorrow to set up appointments; PCP for referral to Cardiology, for possible TTE as well, to inform him of pending CXR to aid in ruling in/out PNA. Endocrinology for possible etiology of prolonged fever, and other symptoms. Continue Amoxicillin prescribed by PCP, will call with X-ray and laboratory results in a few days. Do not hesitate to seek emergency medical treatment in the ER if you symptoms become worse to include confusion, altered mental status, shortness of breath at rest, bluish hue around lips, chest pain, changes in vision. Patient endorsed she understood instructions and agreed with plan. In order to obtain further information and compare any laboratory results/values, I have accessed old patient records. This information was pertinent in my medical decision making today. [email or web address] Not available 02/25/2020 17:34:46 Plan of Treatment Reminders Order Date Submit Date Provider Last Modified By Organization Details Last Modified Time Details Appointments None recorded. Lab pro BNP (pro B-type natriureti c peptide), serum or plasma 2019 DARYL [facility] (Centralized Electronic Ordering - All Locations), Patient Can Go To The Location Of Their Choice, 0 08:58:45 BMP + ionized calcium, serum or plasma 2019 [facility], [address] [place] [address], [id number], 0 16:07:14 CG4+ iStat 2019 DARYL [facility] (Centralized Electronic Ordering - All Locations), Patient Can Go To The Location Of Their Choice, [id number] 1 20:05:10 urinalysis , dipstick 2019 [facility], [address] [place] [address], [address], 0 10:53:18 culture, urine 2019 DARYL [facility] (Centralized Electronic Ordering - All Locations), Patient Can Go To The Location Of Their Choice, [id number] 0 07:20:02 BMP, serum or plasma 2019 DARYL [facility] (Centralized Electronic Ordering - All Locations), Patient Can Go To The Location Of Their Choice, [id number] 0 08:58:30 CBC w/ auto diff 2019 DARYL [facility] (Centralized Electronic Ordering - All Locations), Patient Can Go To The Location Of Their Choice, [id number] 0 08:57:31 SARS CoV 2 RNA (COVID-19) , QL, ecommerce marketing manager-PCR, respirator y specimen 2019 DARYL [facility] (Centralized Electronic Ordering - All Locations), Patient Can Go To The Location Of Their Choice, [id number] 0 14:29:28 rapid flu (A+B) 2019 [facility], [address] [place], [address], 0 18:05:57 BMP + ionized calcium, serum or plasma 2019 DARYL [facility] (Centralized Electronic Ordering - All Locations), Patient Can Go To The Location Of Their Choice, [id number] 0 18:12:14 SARS CoV 2 RNA (COVID-19) , QL, ecommerce marketing manager-PCR, respirator y specimen 2019 [email or web address] [facility] (Centralized Electronic Ordering - All Locations), Patient Can Go To The Location Of Their Choice, [id number] 0 17:52:54 Referral None recorded. Procedures None recorded. Surgeries None recorded. Imaging XR, chest, 2 view - Ordered by [facility] 2019 [email or web address] [facility] ([facility] [address], [place], [address], 0 00:53:05 Medication Orders Zofran 4 mg tablet 2019 INTERFACE [id number], [address] [place], [address], 0 16:30:45 sodium chloride 0.9 % intravenou s solution 2019 Not available 1 20:03:36 Zofran 4 mg tablet 2019 [email or web address] [id number], [address] [place], [address], 0 16:15:04 Zofran ODT 4 mg disintegra ting tablet 2019 020 Not available 1 19:36:41 Patient TargetsNo targets recorded. Patient Instructions Encounter Date Encounter Id Patient Instructions Last Modified By Organization Details Last Modified Time 02/15/2020 [id number] You were seen to day for evaluation of flu symptoms and fever of 104.0 yesterday. You were given a 4 mg dose of zofran for your persistent nausea. Please take Tylenol and Motrin per box instructions for your fever, aches and pains. Work on hydrating with clear fluids. We will contact you with covid results as soon as available. Please continue to quarantine until we know your results. .[facility]. We cannot always find the exact cause of your symptoms during your initial visit. Please follow up with your primary care provider or specialist to be rechecked or seek medical attention if your symptoms do not go away or get worse. If you develop any new or worsening symptoms and need after hours care, please go to nearest ER and/or call 911. If you have additional concerns or develop a change in your condition between 8am-10pm, please [facility] at [phone] to help navigate your care. Viral Illness Discharge Instructions BASIC INFORMATION A viral infection can range anywhere between a common cold and influenza. Most viruses will respond to a combination of time and supportive care. Viruses are eliminated by the bodies immune system and do not respond to antibiotics. Viruses can cause many different symptoms including runny stuffy nose, sore throat, headache, fever, body aches, cough, nausea, vomiting,diarrhea. Most of the viral illnesses are spread by hand to face contact, and the rest are spread through sneezing and coughing which releases virus into the air. Over the counter medications can help to relieve annoying symptoms. Occasionally having a virus may cause a secondary bacterial infection such as ear infections, pneumonia, sinusitis. INSTRUCTIONS Keeping your body as healthy as possible will help to limit your illness. Get plenty of rest Drink lots of fluids (water, herbal tea, gatorade) Reduce your risk of getting or giving a cold by avoiding touching your face with your hands. When you cough and sneeze cover your mouth/nose by placing your elbow or upper arm over the area rather than using your hand. Use a teaspoon of honey(avoid organic honey in infants and small children < 1 year) at bedtime to soothe your throat and ease cough. Sleep with head of bed elevated to promote drainage of secretions. Hot showers and humidifiers can help to loosen secretions. Tylenol over the counter can be helpful for aches and fever. Suck on hard, sugar-free candy during the day to keep the throat moist. MEDICATIONS Over the counter remedies are not recommended for young children, but can help relieve symptoms temporarily in adults. In general it is better to take only the medication you need rather than using combination products that contain ingredients that are unnecessary and may cause side effects. 1. Antihistamines (Benadryl, Chlor-Trimeton, Zyrtec, Claritin, Adriana) reduce secretions, but can cause drowsiness and sedation, do not drink alcohol or drive while taking these medications. 2. Decongestants (Phenylephrine, Sudafed) can help to shrink swollen nasal passages and dry secretions, but may cause palpitations, anxiety,and are not safe for people with High blood pressure or heart arrhythmias. 3. Topical Decongestants (Afrin/Abimael-synephri ne) can be very helpful for acute relief of nasal swelling and runny nose, HOWEVER they should not be used regularly for more than 3 days as they will cause rebound congestion if over-used. 4. Cough aids generally contain DM( Dextromethorphan) which is a cough suppressant and Guaifenesin which is an expectorant. While the DM portion can be helpful for suppressing the cough, guaifenesin, particularly as dosed in Mucinex like products has minimal effect and may cause nausea. 5. Tamiflu an anti-viral agent may be prescribed if you are diagnosed with influenza. Viral symptoms usually last between 5-10 days, it is not uncommon to have a mild cough for up to 6 weeks afterward. If you have been diagnosed with influenza you should minimize your contact with others. You may return to work/school after 24 hours of being fever free without medication (usually 5-10 days). FOLLOW UP if your symptoms are not improving in 7-10 days If you have severe ear pain, sinus pain, cough productive large amounts of mucus, wheezing. You have underlying medical problems that may become worse as a result of your viral illness (asthma, diabetes, COPD) and need to follow up to ensure you are improving. SEEK CARE IMMEDIATELY IF 1 Severe headache unresponsive to Tylenol or severe neck stiffness 2. Confusion 3. Severe chest pain 4. Difficulty breathing 5. Persistent vomiting 6. Cough productive large amounts of sputum or blood 7. Inability to keep liquids down 8. Fever unresponsive to medication over 102 If you develop any new or worsening symptoms and need after hours care, please go to nearest ER and/or call 911. If you have additional concerns or develop a change in your condition between 8am-10pm, please call [facility] at [phone] to help navigate your care. Not available 02/15/2020 18:18:03 02/25/2020 [id number] [facility] came to your home today for you complaint of persistant (>10 days) fever, malaise, nausea and body aches. Your sodium was boarderline low we started an IV gave you 500ml of fluid for rehydration. We have performed a Urine Dipstick which was normal, further investigation of your urine will take place at [facility] reference lab as well, Complete blood count, basic metabolic panel, pro-BNP to look at your heart, SARS Cov-2 nasal swab and chest x-ray for adverse lung sounds in your right lower lobe. [facility] will call tomorrow to set up a time to come to your home to perfom the X-ray, You will call your PCP and L[facility]er tomorrow to set up appointments. We will call you with you lab results in a few days. Do not hesitate to seek emergency medical treatment if you symptoms become worse to include, changes in your mental status, confusion, passing out (symcope), worse fever, chills, shaking (rigors). Thank you for your visit with [facility] today. We cannot always find the exact cause of your symptoms during your initial visit. Please follow up with your primary care provider or specialist within 12-24 hours within 24-48 hours within 2-3 days to be rechecked or seek medical attention if your symptoms do not go away or get worse. If you develop any new or worsening symptoms and need after hours care, please go to nearest ER and/or call 911. If you have additional concerns or develop a change in your condition between 8am-10pm, please call [facility] at [phone] to help navigate your care. Viral Illness Discharge Instructions BASIC INFORMATION A viral infection can range anywhere between a common cold and influenza. Most viruses will respond to a combination of time and supportive care. Viruses are eliminated by the bodies immune system and do not respond to antibiotics. Viruses can cause many different symptoms including runny stuffy nose, sore throat, headache, fever, body aches, cough, nausea, vomiting,diarrhea. Most of the viral illnesses are spread by hand to face contact, and the rest are spread through sneezing and coughing which releases virus into the air. Over the counter medications can help to relieve annoying symptoms. Occasionally having a virus may cause a secondary bacterial infection such as ear infections, pneumonia, sinusitis. INSTRUCTIONS Keeping your body as healthy as possible will help to limit your illness. Get plenty of rest Drink lots of fluids (water, herbal tea, gatorade) Reduce your risk of getting or giving a cold by avoiding touching your face with your hands. When you cough and sneeze cover your mouth/nose by placing your elbow or upper arm over the area rather than using your hand. Use a teaspoon of honey(avoid organic honey in infants and small children < 1 year) at bedtime to soothe your throat and ease cough. Sleep with head of bed elevated to promote drainage of secretions. Hot showers and humidifiers can help to loosen secretions. Tylenol over the counter can be helpful for aches and fever. Suck on hard, sugar-free candy during the day to keep the throat moist. MEDICATIONS Over the counter remedies are not recommended for young children, but can help relieve symptoms temporarily in adults. In general it is better to take only the medication you need rather than using combination products that contain ingredients that are unnecessary and may cause side effects. 1. Antihistamines (Benadryl, Chlor-Trimeton, Zyrtec, Claritin, Adriana) reduce secretions, but can cause drowsiness and sedation, do not drink alcohol or drive while taking these medications. 2. Decongestants (Phenylephrine, Sudafed) can help to shrink swollen nasal passages and dry secretions, but may cause palpitations, anxiety,and are not safe for people with High blood pressure or heart arrhythmias. 3. Topical Decongestants (Afrin/Abimael-synephri ne) can be very helpful for acute relief of nasal swelling and runny nose, HOWEVER they should not be used regularly for more than 3 days as they will cause rebound congestion if over-used. 4. Cough aids generally contain DM( Dextromethorphan) which is a cough suppressant and Guaifenesin which is an expectorant. While the DM portion can be helpful for suppressing the cough, guaifenesin, particularly as dosed in Mucinex like products has minimal effect and may cause nausea. 5. Tamiflu an anti-viral agent may be prescribed if you are diagnosed with influenza. Viral symptoms usually last between 5-10 days, it is not uncommon to have a mild cough for up to 6 weeks afterward. If you have been diagnosed with influenza you should minimize your contact with others. You may return to work/school after 24 hours of being fever free without medication (usually 5-10 days). FOLLOW UP if your symptoms are not improving in 7-10 days If you have severe ear pain, sinus pain, cough productive large amounts of mucus, wheezing. You have underlying medical problems that may become worse as a result of your viral illness (asthma, diabetes, COPD) and need to follow up to ensure you are improving. SEEK CARE IMMEDIATELY IF 1 Severe headache unresponsive to Tylenol or severe neck stiffness 2. Confusion 3. Severe chest pain 4. Difficulty breathing 5. Persistent vomiting 6. Cough productive large amounts of sputum or blood 7. Inability to keep liquids down 8. Fever unresponsive to medication over 102 If you develop any new or worsening symptoms and need after hours care, please go to nearest ER and/or call 911. If you have additional concerns or develop a change in your condition between 8am-10pm, please [facility] at [phone] to help navigate your care. Not available 02/25/2020 16:43:06 Reason for Referral None Reported. Results Created Date Observation Date Name Description Value Unit Range Abnormal Flag Note LastModifiedBy Organization Detail LastModifiedTime 02/15/2002/15/2020 rapid flu (A+B) Flu A negati ve Not Available [facility] [address] [place], [address], 02/15/2020 17:45:27 02/15/2002/15/2020 rapid flu (A+B) Flu B negati ve Not Available [facility] [address] [place], [address], 02/15/2020 17:45:27 02/15/20 20 02/15/2020 rapid flu (A+B) Control Visual ized / Valid Not Available [facility] [address] [place], [address], 02/15/2020 17:45:27 02/15/20 20 02/15/2020 BMP + ioniz ed calci um, serum or plasm a glu 146 mg/dL 70-105 Not Available [address], [address], 02/15/2020 18:12:14 02/15/20 20 02/15/2020 BMP + ioniz ed calci um, serum or plasm a BUN 18 mg/dL 8-26 Not Available [address], [address], 02/15/2020 18:12:14 02/15/20 20 02/15/2020 BMP + ioniz ed calci um, serum or plasm a crea 1.0 mg/dL 0.6-1. 3 Not Available [address], [address], 02/15/2020 18:12:14 02/15/20 20 02/15/2020 BMP + ioniz ed calci um, serum or plasm a Na 133 mmol/ L 138-14 6 Not Available [address], [address], 02/15/2020 18:12:14 02/15/20 20 02/15/2020 BMP + ioniz ed calci um, serum or plasm a K 3.5 mmol/ L 3.5-4. 9 Not Available [address], [address], 02/15/2020 18:12:14 02/15/20 20 02/15/2020 BMP + ioniz ed calci um, serum or plasm a cL 98 mmol/ L 98-109 Not Available [address], [address], 02/15/2020 18:12:14 02/15/20 20 02/15/2020 BMP + ioniz ed calci um, serum or plasm a TCO2 25 mmol/ L 24-29 Not Available [address], [address], 02/15/2020 18:12:14 02/15/20 20 02/15/2020 BMP + ioniz ed calci um, serum or plasm a angap 15 mmol/ L 10-20 Not Available [address], [address], 02/15/2020 18:12:14 02/15/20 20 02/15/2020 BMP + ioniz ed calci um, serum or plasm a ica 1.19 mmol/ L 1.12-1 .32 Not Available [address], [address], 02/15/2020 18:12:14 02/15/20 20 02/15/2020 BMP + ioniz ed calci um, serum or plasm a HCT 46 %pcv 38-51 Not Available [address], [address], 02/15/2020 18:12:14 02/15/20 20 02/15/2020 BMP + ioniz ed calci um, serum or plasm a Hb 15.6 g/dL 12-17 Not Available [address], [address], 02/15/2020 18:12:14 02/25/20 20 02/25/2020 CBC w/ auto diff WBC 7.0 K/mm3 (4.0-1 1.0) Not Available [facility] (Centralized Electronic Ordering - All Locations) Patient Can Go To The Location Of Their Choice, 02/25/2020 18:29:02/25/2002/25/2020 CBC w/ auto diff RBC 4.60 M/mm3 (4.20- 5.40) Not Available [facility] (Centralized Electronic Ordering - All Locations) Patient Can Go To The Location Of Their Choice, 02/25/2020 18:29:02/25/2002/25/2020 CBC w/ auto diff HGB 13.9 gm/dL (11.7- 15.5) Not Available [facility] (Centralized Electronic Ordering - All Locations) Patient Can Go To The Location Of Their Choice, 02/25/2020 18:29:02/25/2002/25/2020 CBC w/ auto diff HCT 42.8 % (35.7- 45.8) Not Available [facility] (Centralized Electronic Ordering - All Locations) Patient Can Go To The Location Of Their Choice, 02/25/2020 18:29:29 02/25/2002/25/2020 CBC w/ auto diff MCV 93.0 fL (80.0- 100.0) Not Available [facility] (Centralized Electronic Ordering - All Locations) Patient Can Go To The Location Of Their Choice, 02/25/2020 18:29:29 02/25/2002/25/2020 CBC w/ auto diff MCH 30.2 pg (27.0- 34.0) Not Available [facility] (Centralized Electronic Ordering - All Locations) Patient Can Go To The Location Of Their Choice, 02/25/2020 18:29:29 02/25/2002/25/2020 CBC w/ auto diff MCHC 32.5 g/dL (33.0- 37.0) low Not Available [facility] (Centralized Electronic Ordering - All Locations) Patient Can Go To The Location Of Their Choice, 02/25/2020 18:29:29 02/25/2002/25/2020 CBC w/ auto diff plt 251 K/mm3 (150-4 60) Not Available [facility] (Centralized Electronic Ordering - All Locations) Patient Can Go To The Location Of Their Choice, 02/25/2020 18:29:29 02/25/20 20 02/25/2020 CBC w/ auto diff RDW-SD 45.0 fL (<47.0 ) Not Available [facility] (Centralized Electronic Ordering - All Locations) Patient Can Go To The Location Of Their Choice, 02/25/2020 18:29:29 02/25/20 20 02/25/2020 CBC w/ auto diff MPV 10.4 fL (9.4-1 2.4) Not Available [facility] (Centralized Electronic Ordering - All Locations) Patient Can Go To The Location Of Their Choice, 02/25/2020 18:29:29 02/25/20 20 02/25/2020 CBC w/ auto diff automated NRBC 0.0 #/100 _WBC' s Not Available [facility] (Centralized Electronic Ordering - All Locations) Patient Can Go To The Location Of Their Choice, 02/25/2020 18:29:29 02/25/2002/25/2020 CBC w/ auto diff abs. NRBC 0.0 K/mm3 Not Available [facility] (Centralized Electronic Ordering - All Locations) Patient Can Go To The Location Of Their Choice, 02/25/2020 18:29:29 02/25/20 20 02/25/2020 CBC w/ auto diff neut # 5.0 K/mm3 (1.3-7 .0) Not Available [facility] (Centralized Electronic Ordering - All Locations) Patient Can Go To The Location Of Their Choice, 02/25/2020 18:29:29 02/25/20 20 02/25/2020 CBC w/ auto diff lymph # 1.1 K/mm3 (0.8-3 .1) Not Available [facility] (Centralized Electronic Ordering - All Locations) Patient Can Go To The Location Of Their Choice, 02/25/2020 18:29:29 02/25/20 20 02/25/2020 CBC w/ auto diff mono# 0.7 K/mm3 (0.4-0 .9) Not Available [facility] (Centralized Electronic Ordering - All Locations) Patient Can Go To The Location Of Their Choice, 02/25/2020 18:29:29 02/25/20 20 02/25/2020 CBC w/ auto diff eo # 0.0 K/mm3 (0.0-0 .4) Not Available [facility] (Centralized Electronic Ordering - All Locations) Patient Can Go To The Location Of Their Choice, 02/25/2020 18:29:29 02/25/2002/25/2020 CBC w/ auto diff baso # 0.0 K/mm3 (0.0-0 .1) Not Available [facility] (Centralized Electronic Ordering - All Locations) Patient Can Go To The Location Of Their Choice, 02/25/2020 18:29:29 02/25/2002/25/2020 CBC w/ auto diff abs. imm gran 0.1 K/mm3 Not Available [facility] (Centralized [facility] Ordering - All Locations) Patient Can Go To The Location Of Their Choice, 02/25/2020 18:29:29 02/25/2002/25/2020 CBC w/ auto diff neut 72.4 % (44-76 ) Not Available [facility] (Centralized Electronic Ordering - All Locations) Patient Can Go To The Location Of Their Choice, 02/25/2020 18:29:29 02/25/2002/25/2020 CBC w/ auto diff lymph 15.7 % (15-43 ) Not Available [facility] (Centralized Electronic Ordering - All Locations) Patient Can Go To The Location Of Their Choice, 02/25/2020 18:29:29 02/25/2002/25/2020 CBC w/ auto diff monocyte 10.5 % (4.5-1 0.5) Not Available [facility] (Centralized Electronic Ordering - All Locations) Patient Can Go To The Location Of Their Choice, 02/25/2020 18:29:29 02/25/2002/25/2020 CBC w/ auto diff eo 0.1 % (0-6) Not Available [facility] (Centralized Electronic Ordering - All Locations) Patient Can Go To The Location Of Their Choice, 02/25/2020 18:29:29 02/25/2002/25/2020 CBC w/ auto diff baso 0.3 % (0-2) Not Available [facility] (Centralized Electronic Ordering - All Locations) Patient Can Go To The Location Of Their Choice, 02/25/2020 18:29:29 02/25/2002/25/2020 CBC w/ auto diff imm gran 1.0 % Not Available [facility] (Centralized Electronic Ordering - All Locations) Patient Can Go To The Location Of Their Choice, 02/25/2020 18:29:29 02/25/2002/25/2020 BMP, serum or plasm a glucose 99 mg/dL (70-99 ) Not Available [facility] (Centralized Electronic Ordering - All Locations) Patient Can Go To The Location Of Their Choice, 02/25/2020 18:54:36 02/25/2002/25/2020 BMP, serum or plasm a BUN 12 mg/dL (6-20) Not Available [facility] (Centralized Electronic Ordering - All Locations) Patient Can Go To The Location Of Their Choice, 02/25/2020 18:54:36 02/25/2002/25/2020 BMP, serum or plasm a creatinine 0.8 mg/dL (0.5-1 .0) Not Available [facility] (Centralized Electronic Ordering - All Locations) Patient Can Go To The Location Of Their Choice, 02/25/2020 18:54:36 02/25/2002/25/2020 BMP, serum or plasm a sodium 135 mmol/ L (133-1 45) Not Available [facility] (Centralized Electronic Ordering - All Locations) Patient Can Go To The Location Of Their Choice, 02/25/2020 18:54:36 02/25/2002/25/2020 BMP, serum or plasm a potassium 4.4 mmol/ L (3.6-5 .2) Not Available [facility] (Centralized Electronic Ordering - All Locations) Patient Can Go To The Location Of Their Choice, 02/25/2020 18:54:36 02/25/2002/25/2020 BMP, serum or plasm a chloride 95 mmol/ L (98-10 7) low Not Available [facility] (Centralized Electronic Ordering - All Locations) Patient Can Go To The Location Of Their Choice, 02/25/2020 18:54:36 02/25/2002/25/2020 BMP, serum or plasm a bicarbonate 27 mmol/ L (22-29 ) Not Available [facility] (Centralized Electronic Ordering - All Locations) Patient Can Go To The Location Of Their Choice, 02/25/2020 18:54:36 02/25/2002/25/2020 BMP, serum or plasm a anion gap 13 (4-17) Not Available [facility] (Centralized Electronic Ordering - All Locations) Patient Can Go To The Location Of Their Choice, 02/25/2020 18:54:36 02/25/2002/25/2020 BMP, serum or plasm a calcium 9.5 mg/dL (8.6-1 0.5) Not Available [facility] (Centralized Electronic Ordering - All Locations) Patient Can Go To The Location Of Their Choice, 02/25/2020 18:54:36 02/25/2002/25/2020 BMP, serum or plasm a est GFR non 94 mL/mi n/1.7 3_M2 Creat inine based estim ated glome rular filtr ation rate (eGFR ) is calcu lated using the Chron ic Kidne y Disea se Epide miolo gy Colla borat ion (CKD- EPI). The CKD-E PI creat inine equat ion has not been valid ated in child leah (<18 years ), pregn ant women or in some racia l or ethni c subgr oups other than Cauca sians and Afric an Ameri cans. Not Available [facility] (Centralized Electronic Ordering - All Locations) Patient Can Go To The Location Of Their Choice, 02/25/2020 18:54:36 02/25/2002/25/2020 BMP, serum or plasm a est GFR 109 mL/mi n/1.7 3_M2 Creat inine based estim ated glome rular filtr ation rate (eGFR ) is calcu lated using the Chron ic Kidne y Disea se Epide miolo gy Colla borat ion (CKD- EPI). The CKD-E PI creat inine equat ion has not been valid ated in child laeh (<18 years ), pregn ant women or in some racia l or ethni c subgr oups other than Cauca sians and Afric an Ameri cans. Not Available [facility] (Centralized Electronic Ordering - All Locations) Patient Can Go To The Location Of Their Choice, 02/25/2020 18:54:36 02/25/2002/25/2020 pro BNP (pro B-typ e natri ureti c pepti de), serum or plasm a pro BNP 337 pg/mL (0-125 ) high Not Available [facility] (Centralized Electronic Ordering - All Locations) Patient Can Go To The Location Of Their Choice, [id number] 02/25/2020 19:04:50 02/25/2002/26/2020 SARS CoV 2 RNA (COVI D-19) , QL, ecommerce marketing manager-P CR, respi rator y speci men covid-19 PCR overall result (neg) normal NEGAT NICKOLAS 2019- novel Coron aviru s (2018nCoV ) not detec sadie by real- time RT-PC R. Note: If clini karen suspi cion for COVID -19 is high, tiesha nue to maint ain preca ution s and consi corky repea t testi ng. Resul t repor sadie to [place] [facility]. To preve nt error s in diagn osis, test resul ts shoul d be inter prete d in the dru xt of clini karen findi ngs and other labor atory data. Rare polym orphi sms exist that could lead to false -nega tive or false -posi tive resul ts. If resul ts obtai jenni do not match the clini karen findi ngs, addit ional testi ng shoul d be consi dered . This test has been autho rized by the FDA under an Emerg ency Use Autho rizat ion (EUA) for use by autho rized labor atori es. Testi ng perfo rmed by real time PCR [facility] [employer] SARS- CoV-2 test. Not Available [facility] (Centralized Electronic Ordering - All Locations) Patient Can Go To The Location Of Their Choice, [id number] 02/26/2020 11:23:53 02/25/2002/25/2020 cultu re, urine specimen description URINE CLEAN CATCH/ MIDSTR EAM Not Available [facility] (Centralized Electronic Ordering - All Locations) Patient Can Go To The Location Of Their Choice, [id number] 02/27/2020 07:35:55 02/25/2002/25/2020 cultu re, urine special requests NONE Not Available [facility] ([facility] Ordering - All Locations) Patient Can Go To The Location Of Their Choice, [id number] 02/27/2020 07:35:55 02/25/20 20 02/27/2020 cultu re, urine culture NO GROWTH Not Available [facility] (Centralized Electronic Ordering - All Locations) Patient Can Go To The Location Of Their Choice, [id number] 02/27/2020 07:35:55 02/25/20 20 02/27/2020 cultu re, urine report status FINAL 2019 Not Available [facility] (Centralized Electronic Ordering - All Locations) Patient Can Go To The Location Of Their Choice, [id number] 02/27/2020 07:35:55 02/25/20 20 02/25/2020 BMP + ioniz ed calci um, serum or plasm a glu 107 mg/dL 70-105 Not Available [facility] [address] [place], [address], 02/25/2020 16:07:14 02/25/20 20 02/25/2020 BMP + ioniz ed calci um, serum or plasm a BUN 14 mg/dL 8-26 Not Available [facility] [address] [place], [address], 02/25/2020 16:07:14 02/25/20 20 02/25/2020 BMP + ioniz ed calci um, serum or plasm a crea 0.8 mg/dL 0.6-1. 3 Not Available [facility] [address] [place], [address], 02/25/2020 16:07:14 02/25/20 20 02/25/2020 BMP + ioniz ed calci um, serum or plasm a Na 134 mmol/ L 138-14 6 Not Available [facility] [address] [place], [address], 02/25/2020 16:07:14 02/25/20 20 02/25/2020 BMP + ioniz ed calci um, serum or plasm a K 3.9 mmol/ L 3.5-4. 9 Not Available [facility] [address] [place], [address], 02/25/2020 16:07:14 02/25/20 20 02/25/2020 BMP + ioniz ed calci um, serum or plasm a cL 99 mmol/ L 98-109 Not Available [address], [address], 02/25/2020 16:07:14 02/25/20 20 02/25/2020 BMP + ioniz ed calci um, serum or plasm a TCO2 27 mmol/ L 24-29 Not Available [address], [address], 02/25/2020 16:07:14 02/25/20 20 02/25/2020 BMP + ioniz ed calci um, serum or plasm a angap 14 mmol/ L 10-20 Not Available [address], [address], 02/25/2020 16:07:14 02/25/20 20 02/25/2020 BMP + ioniz ed calci um, serum or plasm a ica 1.15 mmol/ L 1.12-1 .32 Not Available [address], [address], 02/25/2020 16:07:14 02/25/20 20 02/25/2020 BMP + ioniz ed calci um, serum or plasm a HCT 43 %pcv 38-51 Not Available [address], [address], 02/25/2020 16:07:14 02/25/20 20 02/25/2020 BMP + ioniz ed calci um, serum or plasm a Hb 14.6 g/dL 12-17 Not Available [address], [address], 02/25/2020 16:07:14 Result Notes None recorded. Procedures Surgical History Date Name Laterality Status Provider Name and Address Organization Details Recorded Time 02/25/20 Venipuncture - completed GRISELDA HUTCHINSONe, [place], [address], [place] [facility] 02/25/2020 16:09:28 02/25/20 20 IV Start Procedure - completed ELIE DILL NP [address], [place], [address], [place] [facility] 02/25/2020 16:09:06 02/15/20 20 Venipuncture - completed Melisa Rodriguez NP [address], [place], [address], [place] [facility] 02/20/2020 10:33:31 biopsy of liver completed Melisa Rodriguez NP [address], [place], [address], [place] [facility] 02/15/2020 17:41:20 Imaging Results None recorded. Procedure Notes None recorded. Medical Equipment None Reported. Allergies Allergen ID Allergen Name Allergen Category Reaction Reaction Severity Criticality Documentation Date Start Date Code Code System Note Provider Name and Address Organization Details Recorded Time 666605 Ceclor medicatio n Not available Not available Not available 02/15/2020 17076 5 RxNorm Melisa Rodriguez NP [address], [place] [place], [address], [place] [facility] 0 17:37:02 [id number] clarithro mycin medicatio n Not available Not available Not available 02/15/2020 77457 RxNorm Melisa Rodriguez NP [address], [place], [address], [place] [facility] 0 17:37:11 [id number] Bactrim medicatio n Not available Not available Not available 02/15/2020 52077 9 RxNorm Melisa Rodriguez NP [address], [place], [address], [place] [facility] 0 17:37:42 [id number] Substance with sulfonami de structure and antibacte rial mechanism of action (substanc e) medicatio n Not available Not available Not available 02/15/2020 95030 8003 SNOMED Melisa Rodriguez NP [address], [facility] [place], [address], [place] [facility] 0 17:38:06 Medications Name Sig Start Date Stop Date Status Note LastModified by Organization Details LastModified Time amoxicillin 500 mg capsule TAKE 1 CAPSULE BY MOUTH 3 TIMES A DAY FOR 10 DAYS active Not Available Not Available No t Available doxycycline hyclate 100 mg capsule TAKE 1 CAPSULE BY MOUTH TWICE A DAY FOR 10 DAYS 02/14 completed Not Available Not Available Not Available clindamycin HCl 300 mg capsule TAKE 2 CAPSULES NOW THEN TAKE 1 CAPSULE 4 TIMES A DAY UNTIL FINISHED 02/14 completed Not Available Not Available Not Available ibuprofen 800 mg tablet TAKE 1 TABLET BY MOUTH EVERY 8 HOURS NEEDED 02/14 completed Not Available Not Available Not Available nicotine (polacrilex ) 2 mg gum CHEW ONE PIECE EVERY 2 HOURS NEEDED FOR SMOKING CESSATION 02/14 completed Not Available Not Available Not Available fluconazole 150 mg tablet TAKE 1 TABLET BY MOUTH ONCE 02/24 completed Not Available Not Available Not Available ondansetron HCl 8 mg tablet TAKE 1 TABLET BY MOUTH THREE TIMES A DAY NEEDED FOR NAUSEA 02/24 completed Not Available Not Available Not Available meloxicam 15 mg tablet TAKE 1 TABLET BY MOUTH EVERY DAY active Not Available Not Available No t Available ondansetron HCl 4 mg tablet TAKE 1 TABLET BY MOUTH THREE TIMES A DAY NEEDED FOR NAUSEA active Not Available Not Available No t Available clonazepam 1 mg tablet TAKE 1 TABLET BY MOUTH TWICE A DAY NEEDED active Not Available Not Available No t Available penicillin V potassium 500 mg tablet TAKE 1 TABLET 4 TIMES A DAY 02/14 completed Not Available Not Available Not Available ondansetron 8 mg disintegrat ing tablet TAKE 1 TABLET BY MOUTH EVERY 8 HOURS FOR 10 DAYS 02/24 completed Not Available Not Available Not Available pantoprazol e 20 mg tablet,harvey yed release TAKE 1 TABLET BY MOUTH EVERY DAY active Not Available Not Available No t Available famotidine 20 mg tablet TAKE 1 TABLET BY MOUTH DAILY AT BEDTIME,X 60 DAYS active Not Available Not Available No t Available oxycodone-a cetaminophe n 10 mg-325 mg tablet TAKE 1 TABLET BY MOUTH EVERY 6 HOURS NEEDED FOR BREAKTHRO UGH PAIN active Not Available Not Available No t Available Zofran ODT 4 mg disintegrat ing tablet one ODT administe red on scene. Time administe red: 6:06 pm 2020 active Not Available Not Available Not Avai lable trazodone 150 mg tablet TAKE 1 2 TABLETS BY MOUTH AT BEDTIME NEEDED active Not Available Not Available No t Available ranitidine 150 mg tablet TAKE 1 TABLET BY MOUTH TWICE A DAY, MAX 2 TABLETS DAILY 02/24 completed Not Available Not Available Not Available mirtazapine 15 mg tablet TAKE 1 TABLET BY MOUTH EVERYDAY AT BEDTIME 02/24 completed Not Available Not Available Not Available sodium chloride 0.9 % intravenous solution Inject 500 mL by intraveno us route. 2020 active Not Available Not Available Not Avai lable fluticasone propionate 50 mcg/actuati on nasal spray,suspe nsion USE 1 SPRAY IN EACH NOSTRIL TWICE A DAY active Not Available Not Available No t Available doxycycline hyclate 100 mg tablet TAKE 1 TABLET BY MOUTH TWICE A DAY FOR 10 DAYS 02/14 completed Not Available Not Available Not Available escitalopra m 20 mg tablet TAKE 1 TABLET BY MOUTH EVERY DAY active Not Available Not Available No t Available Boostrix Tdap 2.5 Lf unit-8 mcg-5 Lf/0.5 mL intramuscul ar syringe TO BE ADMINISTE RED BY PHARMACIS T FOR IMMUNIZAT ION active Not Available Not Available No t Available Lyrica 225 mg capsule TAKE 1 CAPSULE BY MOUTH TWICE A DAY active Not Available Not Available No t Available trazodone 02/14 completed Not Available Not Available Not Available Lyrica 02/14 completed Not Available Not Available Not Available diclofenac 1 % topical gel APPLY 2 GRAMS TO AFFECTED AREA EVERY 4 6 HOURS NEEDED active Not Available Not Available No t Available marijuana (cannabis) active Not Available Not Available N ot Available buprenorphi ne 7.5 mcg/hour weekly transdermal patch APPLY ONE PATCH TOPICALLY TO SKIN, CHANGE ONCE A WEEK. active Not Available Not Available No t Available Vitals Date Recorded Heart rate Oxygen saturation Oxygen saturation in Arterial blood by Pulse oximetry Body temperature Respiratory rate Systolic blood pressure Diastolic blood pressure Provider Name and Address Organization Details Last Updated DateTime 0 82 /min 97 % 97 % 98.2 [degF] 18 /min 90 mm[Hg] 60 mm[Hg] Not Available [facility] 0 17:39:07 Date Recorded Oxygen saturation Oxygen saturation in Arterial blood by Pulse oximetry Body temperature Respiratory rate Heart rate Systolic blood pressure Diastolic blood pressure Provider Name and Address Organization Details Last Updated DateTime 0 94 % 94 % 100.9 [degF] 18 /min 92 /min 118 mm[Hg] 64 mm[Hg] Not Available [facility] 0 15:21:27 Social History Question Answer Notes LastModified by Organizat ion Details LastModified Time Tobacco Smoking Status Current Every Day Smoker Melisa Rodriguez, GRISELDA [address], [place], [address], [place] [facility] 02/15/2020 17:35:16 Do You Have An Advance Directive? No Information not available 02/15/2020 What Is Your Code Status? Full Code Information not available 02/15/2020 Within The Past 12 Months, Has It Happened That The Food You Bought Just Didn't Last And You Didn't Have Money To Get More. No Information not available 02/15/2020 Within The Past 12 Months, Have You Worried That Your Food Would Run Out Before You Got Money To Buy More. No Information not available 02/15/2020 Fall Risk: Do You Feel Unsteady When Standing Or Walking? No Information not available 02/15/2020 We Know That How And When People Interact With Friends And Family Can Be Very Different From Person To Person. How Often Do You Have The Opportunity To See Or Talk To People That You Care About And Feel Close To? (Ex: Talking To Friends On The Phone Or Visiting Friends Or Family Or Going To Mosque Or Club Meetings) 1 Or 2 Times Per Week Information not available 02/15/2020 Excessive Alcohol Or Drug Use No Information not available 02/15/2020 We Know From Many Of Our Patients That Covering All Of Their Costs Can Be Difficult At Times. This Can Cause Stress And Impact Health. In The Past Year, Have You Been Unable To Get Any Of The Following When It Was Really Needed? No Information not available 02/15/2020 What Is Your Housing Situation Today? I Have Housing Information not available 02/15/2020 Would You Like Help Connecting To Resources? None Information not available 02/15/2020 How Much Tobacco Do You Smoke? 0.5 PPD Information not available 02/15/2020 How Many Years Have You Smoked Tobacco? 20 Information not available 02/15/2020 Sex: Unknown Functional Status None recorded. Mental Status None recorded. Family History Relationship Description Onset Age of this Age Resolved Age Notes LastModified by Organization Details LastModified Time Father Malignant neoplasm of skin Not available 2019 17:34:06 Medical History Condition Response Diabetes N Coronary Artery Disease N High Cholesterol N Pulmonary Embolism N Cancer Y Hypertension N Stroke N Asthma Y COPD N Depression Y Kidney Disease N Gynecological HistoryNo gynecological history recorded. Obstetrics History GPAL:G 0 P 0 0 0 0 Past Encounters Encounter ID Performer Location Encounter Start Date Encounter Closed Date Diagnosis/Indication Diagnosis SNOMED-CT Code Diagnosis ICD10 Code Diagnosis Note [id number] Melisa Rodriguez NP [facility] [address] [place] [address] 02/15/2020 17:29:34 02/18/2020 15:23:32 Fever 443962827 R50.9 Overview/H istory: Patient has suffered numerous flu like symptoms that started yesterday afternoon. Her reported fever started at 101.0 and escalated to 104.0. Her symptoms also included body aches, chills, dizziness, headache, nausea/vom iting. Exam: Patient vital signs stable with exception of hypotensio n; patient does report a blood pressure that is low at baseline. Patient HRR, s1, s2, no rub, gallop, murmur appreciate d. Her lung sounds are clear and equal bilaterall y. Oxygen sat is 97% at room air. She is non-toxic in appearance and exam findings are non-toxic. Her skin turgor is wnl, mucous membranes moist. DDx considered , but not limited to:Covid may be likely given symptom presentati onFlu not likely, negative testing for both A & BDehydrati on possible, but given exam findings, not likely Work up/Results :ISTAT 8 completed/ WNLFlu A & B negativeCo vid test swab results pending Plan/Discu ssion:Foll ow up with PCP within 2-4 daysTake Zofran as prescribed , 7 day course prescribed Hydrate well with clear fluidsQuar antine as discussed until Covid test results available and symptom freePatien t PCP attached to this visit Discussed symptomolo gy and when to report to ED/call 911. Patient able to reiterate all discussed. No questions at this time. Proper Personal Protective Equipment (PPE), including {{gloves, eye protection , masks, and gowns, shoe covers holli ves, eye protection and masks glov es, eye protection gloves, eye protection , N95 mask, gown, and shoe covers surgical mask with face-shiel d, gloves, gown and shoe covers* salvador rgical mask with face-shiel d, gloves}} were donned and doffed appropriat ej and all equipment cleaned using approved technique with germicidal disposable wipes prior to and after care of this patient according to [facility]'s infection prevention protocols. In order to obtain further informatio n and compare any laboratory results/va lues, I have accessed {{old patient records* p atient records on the [employer] r eviewed records with the PCP}}. This informatio n was pertinent in my medical decision making today. Suspected COVID-19 18674 4004 Z03.89 Nausea and vomiting 1693 2000 R11.2 Nausea [id number] R11.0 [id number] Melisa Rodriguez NP [facility] [address] [place] [address] 02/25/2020 14:50:32 02/26/2020 10:38:53 Fever [id number] R50.9 Community acquired pneumonia [id number] J18.9 Exposure t o communicable disease 090097539 Z20.828 Systolic murmur 95734829 R01.1 Nausea [id number] R11.0 Health Concerns Section Related Observation LastModified by Organization Detai ls LastModified Time None Recorded Concern Status LastModified by Organization Details LastModified Time None Recorded Advance Directives Directive N: Payers Encounter Date Sequence Insurance Name Policy Number Policy Boyd Covered Member ID Boyd Member ID Guarantor Name 02/15/2020 1 [place] [employer] Esmer Mims [id number] Esmer Mims 02/15/2020 2 [facility] (MEDICARE SUPPLEMENT) Esmer Mims [id number] Esmer Mims 02/25/2020 1 [place] [employer] Esmer Mims [id number] Esmer Mims 02/25/2020 2 [facility] (MEDICARE SUPPLEMENT) Esmer Mims [id number] Esmer Mims Notes Date Note Type Note Provider Name and Address Organization Details Recorded Time 0 text/html 44 year old alert female who [facility] and not known to this provider. Patient request evaluation for flu symptoms that started yesterday. She had a fever 104.0 (oral) yesterday, chills, dizziness, body aches, nausea, vomiting. She has had a headache x 2 days. Complains of loss of smell. Alternating Motrin and Tylenol alleviates some of her symptoms, there are no exacerbating factors. Patient was treated for streptococcal symptoms 12/2019. Her medical history is significant for unspecified immunocompromised condition, history of lymes disease, IBS, GERD. Melisa Rodriguez NP [address], [place], [address], [place] [facility] 06/04/2020 09:07:28 0 text/html 44 y/o female with PMH of autoimmune disorder, liver adenoma, Lyme disease for which she states she had a titer drawn earlier this month. She endores three tick bites recently. She has been experiencing greater than 10 days of fevers and [place]. Patient is know to , last seen on 02/15/20 for same chief complaint. Patient was found to be mildly hyponatremic, given fluids, rapid flu A, B, were negative. Patient recently started on antibiotics by PCP for possible sinus infection. Patient endorses a cortisone injection in her lower back to relieve radiculopathy in her BLEs d/t spinal stenosis. On 02/13/20 she developed fever, head ache, nausea and vomiting which has persisted. Today Patient endorses flank pain, weakness, fatigue, headache, nausea w/o vomiting. Patient requesting SARS CoV-2 test. Patient's past testing includes SARS CoV-2 on 02/15/20 (negative), Lyme Relex < 0.90 (negative). ELIE DILL NP [address], [place], [address], [place] - [facility] 02/25/2020 17:34:57 OBGyn Episode No OBEpisode recorded.
--- OUTSIDE RECORDS SUMMARY | 2024-06-20 15:23 | XMS_ITS | Clinical Summary ---
Author Organization [facility] Address [address] [place] [address] Care Team Providers Care Industrial Truck Operator Name Role Phone iWlmaEfremw Primary Care Provider [phone] Allergies Active Allergy Reactions Criticality Noted Date [...] Department Care Team Description 05/09/2024 myChart Message [facility] [address] [place] [phone] Recruiting Manager: Lisa Mackay MD [facility] 04/17/2024 Telephone [facility] [address] [place] [phone] Recruiting Manager: Fay Sánchez Telephone Intake, Staff 04/10/2024 2:00 PM EST Office Visit [facility] [address] [place] [phone] Recruiting Manager: Juan Puri MD PhD 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) 04/09/2024 Telephone [facility] [address] [place] [address]19 Recruiting Manager: Fay Sánchez Telephone Intake, Staff 03/26/2024 Telephone [facility] [address] [place] [phone] Recruiting Manager: Lisa Mackay MD from Last 3 Months Social History Tobacco [...] Info) Description 11/21/2024 9:30 AM EDT Follow-Up [facility] [address] [place] [address] Recruiting Manager: Lisa Mackay MD [address] [place] [address] Health Maintenance Due Date Last Done Comments Cervical Cancer Screening 1975 Cologuard 1975 FOBT / Fit Test 1975 HIV Screening 1975 HPV and Pap Smear 1975 Hepatitis C Screening 1975 Pap Smear 1975 Sigmoidoscopy 1975 Medicare AWV 1976 Hepatitis B Vaccines (1 of 3 - [...] Additional history exists Procedures * Due to [place] [employer] law, this organization might not be sharing negative HIV tests. Procedure Name Priority Date/Time Associated Diagnosis Comments AMB EXTERNAL MRI ABDOMEN, OU TSIDE RESULT 05/08/2024 COLONOSCOPY 11/07/2018 from Last 3 Months or Most Recently Relevant to Health Maintenance Results * Due to [place] [employer] law, this organization might not be sharing negative HIV tests. * MRI Abdomen, Outside Result (05/08/2024) Anatomical Region Laterality Modality Other 05/08/2024 us Onbase Scan [facility] AMB EXTERNAL RESULT PROCEDURE S Final Result * COLONOSCOPY (11/07/2018) 11/07/2018 us Onbase Scan [facility] HEALTH MAINTENANCE Final Resu lt from Last 3 Months or Most Recently Relevant to Health Maintenance Insurance MEDICARE [facility] HSNO/FREE CARE Care Teams Industrial Truck Operator Relationship Specialty Start Date End Date George Dillon [address] [place] [phone] PCP - General Internal Medicine 08/16/22
== END 2024-06-20 12:59 | disposition home or self-care (01) ==
LOC: HO.MRI 12:58
PROVIDERS: PCP Internal Medicine; Visit Provider Internal Medicine Rheumatology
DX: M65.949 Unspecified synovitis and tenosynovitis, unspecified hand (principal)
CPT/HCPCS: 73220; A9585

== ENCOUNTER → 2024-06-20 13:14 | Outpatient (BNV) | payer MEDICARE, OTHER, SELFPAY | PROVIDERS: PCP Internal Medicine; Visit Provider Specialist | DX: M65.942 Unspecified synovitis and tenosynovitis, left hand (principal) | CPT/HCPCS: 73220 ==

== ENCOUNTER 2024-07-03 12:39 | Outpatient (REF) | payer MEDICARE, OTHER, MEDICAID, SELFPAY ==
--- NOTE | ~2024-07-03 | XR_ITS ---
EXAMINATION: XR HAND 3 OR MORE VIEWS LEFT HISTORY: M79.642 - Pain in left hand COMPARISON: There are no prior studies available for comparison. FINDINGS: Three views of the left hand are submitted. Osseous mineralization is normal. There is no fracture or dislocation. The joint spaces are preserved. The soft tissues are unremarkable. XR/XR hand LT min 3V IMPRESSION: Unremarkable examination of the left hand. Electronically signed by: Juan Schuster MD 07/03/2024 02:57 PM EDT
--- OUTSIDE RECORDS SUMMARY | 2024-07-03 17:19 | XMS_ITS | Data Portability ---
Author Organization [place] [facility], [facility] Address [address] [place] [address] Care Team Providers Care Hosiery Mender Name Role Phone REGINA SALGADO Primary Care Provider TERRI AVILA OTHER KAMRON CABALLERO OTHER [facility] ENDOCRINOLOG[facility] DIABETES SCHEDULING O THER PAPA SUMMERS OTHER [phone] SAMIRA DONALD OTHER [phone] Assessment Encounter Date Assessment Date Assessment LastModified [...] after care of this patient according to [facility]'s infection prevention protocols. In order to obtain [...] after care of this patient according to [facility]'s infection prevention protocols. This patient is new [...] with 18 guage in left AC by [facility] under my supervision for IV fluids for rehydration: 500 ml of 0.9% sodium chloride over 40 minutes. patient tolerated procedure well. Discussed with patient her need to follow up with her PCP and accelerator operator tomorrow to set up appointments; PCP for [...] pertinent in my medical decision making today. [email or web address] Not available 02/25/2020 17:34:46 Plan of Treatment [...] + ionized calcium, serum or plasma 2019 [facility], [address] [place] [address], [address], 0 16:07:14 CG4+ iStat 2019 DARYL [facility] (Centralized Electronic Ordering - All Locations), Patient Can Go To The Location Of Their Choice, [address] 1 20:05:10 urinalysis , dipstick 2019 [facility], [address] [place] [address], [address], 0 10:53:18 culture, urine 2019 DARYL [facility] (Centralized Electronic Ordering - All Locations), Patient Can Go To The Location Of Their Choice, [address] 0 07:20:02 BMP, serum or plasma 2019 DARYL [facility] (Centralized Electronic Ordering - All Locations), Patient Can Go To The Location Of Their Choice, [address] 0 08:58:30 CBC w/ auto diff 2019 DARYL [facility] (Centralized Electronic Ordering - All Locations), Patient Can Go To The Location Of Their Choice, [address] 0 08:57:31 SARS CoV 2 RNA (COVID-19) , QL, digital specialist-PCR, respirator y specimen 2019 DARYL [facility] (Centralized Electronic Ordering - All Locations), Patient Can Go To The Location Of Their Choice, [address] 0 14:29:28 rapid flu (A+B) 2019 [facility], [address] [place], [address], 0 18:05:57 BMP + ionized calcium, serum or plasma 2019 DARYL [facility] (Centralized Electronic Ordering - All Locations), Patient Can Go To The Location Of Their Choice, [address] 0 18:12:14 SARS CoV 2 RNA (COVID-19) , QL, digital specialist-PCR, respirator y specimen 2019 [email or web address] [facility] (Centralized Electronic Ordering - All Locations), Patient Can Go To The Location Of Their Choice, [address] 0 17:52:54 Referral None recorded. Procedures None recorded. Surgeries None recorded. Imaging XR, chest, 2 view - Ordered by [facility] 2019 [facility] ([facility]), [address] [facility], [place], [address], 0 00:53:05 Medication Orders Zofran 4 mg tablet 2019 INTERFACE [id number], [address] [place], [address], 0 16:30:45 sodium chloride 0.9 % intravenou s solution 2019 Not available 1 20:03:36 Zofran 4 mg tablet 2019 [email or web address] [id number], [address] [place], [address], 0 16:15:04 Zofran ODT 4 mg disintegra ting tablet 2019 020 Not available 1 19:36:41 Patient TargetsNo targets recorded. Patient Instructions Encounter Date Encounter Id Patient Instructions Last Modified By Organization Details Last Modified Time 02/15/2020 [id number] You were seen to day for evaluation [...] results. .[facility]. We cannot always find the exact [...] in your condition between 8am-10pm, please [facility] at [phone] to help navigate your care. Viral Illness [...] in your condition between 8am-10pm, please call [facility] at [phone] to help navigate your care. Not available 02/15/2020 18:18:03 02/25/2020 [id number] [facility] came to your home today for you complaint of persistant (>10 days) fever, malaise, nausea and body aches. Your sodium was boarderline low we started an IV gave you 500ml of fluid for rehydration. We have performed a Urine Dipstick which was normal, further investigation of your urine will take place at [facility] reference lab as well, Complete blood count, basic metabolic panel, pro-BNP to look at your heart, SARS Cov-2 nasal swab and chest x-ray for adverse lung sounds in your right lower lobe. [facility] will call tomorrow to set up a time to come to your home to perfom the X-ray, You will call your PCP and [facility] Center Nurse tomorrow to set up appointments. We will call you with you lab results in a few days. Do not hesitate to seek emergency medical treatment if you symptoms become worse to include, changes in your mental status, confusion, passing out (symcope), worse fever, chills, shaking (rigors). Thank you for your visit with [facility] today. We cannot always find the exact [...] in your condition between 8am-10pm, please call [facility] at [phone] to help navigate your care. Viral Illness [...] in your condition between 8am-10pm, [facility] at [phone] to help navigate your care. [email or web address] Not available 02/25/2020 16:43:06 Reason for Referral None Reported. Results Created Date Observation Date Name Description Value Unit Range Abnormal Flag Note LastModifiedBy Organization Detail LastModifiedTime 02/15/2002/15/2020 rapid flu (A+B) Flu A negati ve Not Available [facility] [address] [place], [address], 02/15/2020 17:45:27 02/15/2002/15/2020 rapid flu (A+B) Flu B negati ve Not Available [facility] [address] [place], [address], 02/15/2020 17:45:27 02/15/20 20 02/15/2020 rapid flu (A+B) Control Visual ized / Valid Not Available [facility] [address] [place], [address], 02/15/2020 17:45:27 02/15/20 20 02/15/2020 BMP + ioniz ed calci um, serum or plasm a glu 146 mg/dL 70-105 Not Available [address], [address], 02/15/2020 18:12:14 02/15/20 20 02/15/2020 BMP + ioniz ed calci um, serum or plasm a BUN 18 mg/dL 8-26 Not Available [address], [address], 02/15/2020 18:12:14 02/15/20 20 02/15/2020 BMP + ioniz ed calci um, serum or plasm a crea 1.0 mg/dL 0.6-1. 3 Not Available [address], [address], 02/15/2020 18:12:14 02/15/20 20 02/15/2020 BMP + ioniz ed calci um, serum or plasm a Na 133 mmol/ L 138-14 6 Not Available [address], [address], 02/15/2020 18:12:14 02/15/20 20 02/15/2020 BMP + ioniz ed calci um, serum or plasm a K 3.5 mmol/ L 3.5-4. 9 Not Available [address], [address], 02/15/2020 18:12:14 02/15/20 20 02/15/2020 BMP + ioniz ed calci um, serum or plasm a cL 98 mmol/ L 98-109 Not Available [address], [address], 02/15/2020 18:12:14 02/15/20 20 02/15/2020 BMP + ioniz ed calci um, serum or plasm a TCO2 25 mmol/ L 24-29 Not Available [address], [address], 02/15/2020 18:12:14 02/15/20 20 02/15/2020 BMP + ioniz ed calci um, serum or plasm a angap 15 mmol/ L 10-20 Not Available [address], [address], 02/15/2020 18:12:14 02/15/20 20 02/15/2020 BMP + ioniz ed calci um, serum or plasm a ica 1.19 mmol/ L 1.12-1 .32 Not Available [address], [address], 02/15/2020 18:12:14 02/15/20 20 02/15/2020 BMP + ioniz ed calci um, serum or plasm a HCT 46 %pcv 38-51 Not Available [address], [address], 02/15/2020 18:12:14 02/15/20 20 02/15/2020 BMP + ioniz ed calci um, serum or plasm a Hb 15.6 g/dL 12-17 Not Available [address], [address], 02/15/2020 18:12:14 02/25/20 20 02/25/2020 CBC w/ [...] Go To The Location Of Their Choice, [id number] 02/25/2020 19:04:50 02/25/2002/26/2020 SARS CoV 2 RNA (COVI D-19) , QL, digital specialist-P CR, respi rator y speci men covid-19 PCR overall result (neg) normal NEGAT NICKOLAS 2019- novel Coron aviru s (2018nCoV ) not detec sadie by real- time RT-PC R. Note: If clini karen suspi cion for COVID -19 is high, tiesha nue to maint ain preca ution s and consi corky repea t testi ng. Resul t repor sadie to [place] [facility]. To preve nt error s in diagn [...] perfo rmed by real time PCR [facility]ili [facility] LUI Corhythm0 SARS- CoV-2 test. Not Available [facility] (Centralized Electronic Ordering - All Locations) Patient Can Go To The Location Of Their Choice, [address] 02/26/2020 11:23:53 02/25/2002/25/2020 cultu re, urine specimen description URINE CLEAN CATCH/ MIDSTR EAM Not Available [facility] (Centralized Electronic Ordering - All Locations) Patient Can Go To The Location Of Their Choice, [address] 02/27/2020 07:35:55 02/25/2002/25/2020 cultu re, urine special requests NONE Not Available [facility] (Centralized Electronic Ordering - All Locations) Patient Can Go To The Location Of Their Choice, [address] 02/27/2020 07:35:55 02/25/20 20 02/27/2020 cultu re, urine culture NO GROWTH Not Available [facility] (Centralized Electronic Ordering - All Locations) Patient Can Go To The Location Of Their Choice, [address] 02/27/2020 07:35:55 02/25/20 20 02/27/2020 cultu re, urine report status FINAL 2019 Not Available [facility] (Centralized Electronic Ordering - All Locations) Patient Can Go To The Location Of Their Choice, [address] 02/27/2020 07:35:55 02/25/20 20 02/25/2020 BMP + ioniz ed calci um, serum or plasm a glu 107 mg/dL 70-105 Not Available [facility] [address] [place], [address], 02/25/2020 16:07:14 02/25/20 20 02/25/2020 BMP + ioniz ed calci um, serum or plasm a BUN 14 mg/dL 8-26 Not Available [facility] [address] [place], [address], 02/25/2020 16:07:14 02/25/20 20 02/25/2020 BMP + ioniz ed calci um, serum or plasm a crea 0.8 mg/dL 0.6-1. 3 Not Available [facility] [address] [place], [address], 02/25/2020 16:07:14 02/25/20 20 02/25/2020 BMP + ioniz ed calci um, serum or plasm a Na 134 mmol/ L 138-14 6 Not Available [facility] [address] [place], [address], 02/25/2020 16:07:14 02/25/20 20 02/25/2020 BMP + ioniz ed calci um, serum or plasm a K 3.9 mmol/ L 3.5-4. 9 Not Available [facility] [address] [place], [address], 02/25/2020 16:07:14 02/25/20 20 02/25/2020 BMP + ioniz ed calci um, serum or plasm a cL 99 mmol/ L 98-109 Not Available [address], [address], 02/25/2020 16:07:14 02/25/20 20 02/25/2020 BMP + ioniz ed calci um, serum or plasm a TCO2 27 mmol/ L 24-29 Not Available [address], [address], 02/25/2020 16:07:14 02/25/20 20 02/25/2020 BMP + ioniz ed calci um, serum or plasm a angap 14 mmol/ L 10-20 Not Available [address], [address], 02/25/2020 16:07:14 02/25/20 20 02/25/2020 BMP + ioniz ed calci um, serum or plasm a ica 1.15 mmol/ L 1.12-1 .32 Not Available [address], [address], 02/25/2020 16:07:14 02/25/20 20 02/25/2020 BMP + ioniz ed calci um, serum or plasm a HCT 43 %pcv 38-51 Not Available [address], [address], 02/25/2020 16:07:14 02/25/20 20 02/25/2020 BMP + ioniz ed calci um, serum or plasm a Hb 14.6 g/dL 12-17 Not Available [address], [address], 02/25/2020 16:07:14 Result Notes None recorded. Procedures Surgical History Date Name Laterality Status Provider Name and Address Organization Details Recorded Time 02/25/20 Venipuncture - completed GRISELDA HUTCHINSONe, [place], [address], [place] [facility] 02/25/2020 16:09:28 02/25/20 20 IV Start Procedure - completed ELIE DILL NP [address], [place], [address], [place] [facility] 02/25/2020 16:09:06 02/15/20 20 Venipuncture - completed Melisa Rodriguez NP [address], [place], [address], [place] [facility] 02/20/2020 10:33:31 biopsy of liver completed Melisa Rodriguez NP [address], [place], [address], [place] [facility] 02/15/2020 17:41:20 Imaging Results None recorded. Procedure Notes None recorded. Medical Equipment None Reported. Allergies Allergen ID Allergen Name Allergen Category Reaction Reaction Severity Criticality Documentation Date Start Date Code Code System Note Provider Name and Address Organization Details Recorded Time 246823 Ceclor medicatio n Not available Not available Not available 02/15/2020 02462 5 RxNorm Melisa Rodriguez NP [address], [facility] [place] [place], [address], [place] [facility] 0 17:37:02 516991 clarithro mycin medicatio n Not available Not available Not available 02/15/2020 50544 RxNorm Melisa Rodriguez NP [address], [facility] [place], [address], [place] [facility] 0 17:37:11 525406 Bactrim medicatio n Not available Not available Not available 02/15/2020 05149 9 RxNorm Melisa Rodriguez NP [address], [facility] [place], [address], [place] [facility] 0 17:37:42 520828 Substance with sulfonami de structure and antibacte rial mechanism of action (substanc e) medicatio n Not available Not available Not available 02/15/2020 48203 8003 SNOMED Melisa Rodriguez NP [address], [place], [address], [place] [facility] 0 17:38:06 [...] Smoker Melisa Rodriguez, GRISELDA [address], [place], [address], [place] [facility] 02/15/2020 17:35:16 Do You [...] Visiting Friends Or Family Or Going To Shinto Or Club Meetings) 1 Or 2 Times [...] N Cancer Y Hypertension N Stroke N COPD N Depression Y Asthma Y Kidney Disease N Gynecological HistoryNo gynecological history recorded. Obstetrics History GPAL:G 0 P 0 0 0 0 Past Encounters Encounter ID Performer Location Encounter Start Date Encounter Closed Date Diagnosis/Indication Diagnosis SNOMED-CT Code Diagnosis ICD10 Code Diagnosis Note [id number] Melisa Rodriguez NP [facility] [address] [place] [address] 02/15/2020 17:29:34 02/18/2020 15:23:32 Fever 548178156 R50.9 Overview/H istory: Patient has suffered numerous [...] after care of this patient according to [facility]'s infection prevention protocols. In order to obtain further informatio n and compare any laboratory results/va lues, I have accessed {{old patient records* p atient records on the [employer] r eviewed records with the PCP}}. This informatio n was pertinent in my medical decision making today. Suspected COVID-19 51575 4004 Z03.89 Nausea and vomiting 1693 2000 R11.2 Nausea 604558568 R11.0 [id number] Melisa Rodriguez NP [facility] [place] [address] [place] [address] 02/25/2020 14:50:32 02/26/2020 10:38:53 Fever 795979878 R50.9 Community acquired pneumonia 435610081 J18.9 Exposure t o communicable disease 362963779 Z20.828 Systolic murmur 17683106 R01.1 Nausea 622949443 R11.0 Health Concerns Section Related Observation LastModified by Organization Detai ls LastModified Time None Recorded Concern Status LastModified by Organization Details LastModified Time None Recorded Advance Directives Directive N: Payers Encounter Date Sequence Insurance Name Policy Number Policy Boyd Covered Member ID Boyd Member ID Guarantor Name 02/15/2020 1 [place]: [employer] Esmer Mims [id number] Esmer Mims 02/15/2020 2 [facility] (MEDICARE SUPPLEMENT) Esmer Mims [id number] Esmer Mims 02/25/2020 1 [place] [employer] Esmer Mims [id number] Esmer Mims 02/25/2020 2 [facility] (MEDICARE SUPPLEMENT) Esmer Mims [id number] Esmer Mims Notes Date Note Type Note Provider Name and Address Organization Details Recorded Time 0 text/html 44 year old alert female who [facility] and not known to this provider. [...] GERD. Melisa Rodriguez NP [address], [place], [address], [place] [facility] 06/04/2020 09:07:28 0 text/html 44 y/o [...] (negative). ELIE DILL NP [address], [place], [address], [place] [facility] 02/25/2020 17:34:57 OBGyn Episode No OBEpisode recorded.
--- OUTSIDE RECORDS SUMMARY | 2024-07-03 17:19 | XMS_ITS | Clinical Summary ---
Author Organization [facility] Address [address] [place] [address] Care Team Providers Care Community Health Nurse Name Role Phone WilmaEfremw Primary Care Provider [phone] Allergies Active Allergy Reactions Criticality Noted Date [...] Department Care Team Description 05/09/2024 myChart Message [facility] [address] [place] [id number] Heeler: Lisa Mackay MD MRI 04/17/2024 Telephone [facility] [address] [place] [address] Heeler: Fay Sánchez Telephone Intake, Staff 04/10/2024 2:00 PM EST Office Visit [facility] [address] [place] [address] Heeler: Juan Puri MD PhD 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 Procedure Name Priority Date/Time Associated Diagnosis Comments AMB EXTERNAL MRI ABDOMEN, OU TSIDE RESULT 05/08/2024 COLONOSCOPY 11/07/2018 from Last 3 Months or Most Recently Relevant to Health Maintenance Results * Due to [place] Beaming law, this organization might not be sharing negative HIV tests. * MRI Abdomen, Outside Result (05/08/2024) Anatomical Region Laterality Modality Other 05/08/2024 us Onbase Scan [facility] AMB EXTERNAL RESULT PROCEDURE S Final Result * COLONOSCOPY (11/07/2018) 11/07/2018 us Onbase Scan [facility] HEALTH MAINTENANCE Final Resu lt from Last 3 Months or Most Recently Relevant to Health Maintenance Insurance [facility]IC[facility] HS[facility]/FREE CARE Care Teams Community Health Nurse Relationship Specialty Start Date End Date George Dillon [address] [place] [address] PCP - General Internal Medicine 08/16/22
--- OUTSIDE RECORDS SUMMARY | 2024-07-03 17:19 | XMS_ITS | Referral Summary ---
Author Organization [facility] Address [address] [place] [address] Care Team Providers Care Call Center Agent Name Role Phone [place] ramirez Primary Care Provider [phone] Encounters Date Type Department Care Team Description 05/09/2024 myChart Message [facility] [address] [place] [address] Steel Chipper: Lisa Mackay MD MRI 04/17/2024 Telephone [facility] [address] [place] [phone] Steel Chipper: Fay Sánchez Telephone Intake, Staff 04/10/2024 2:00 PM EST Office Visit [facility] [address] [place] [address] Steel Chipper: Juan Puri MD PhD 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 Procedure Name Priority Date/Time Associated Diagnosis Comments AMB EXTERNAL MRI ABDOMEN, OU TSIDE RESULT 05/08/2024 HM COLONOSCOPY 11/07/2018 from Last 3 Months or Most Recently Relevant to Health Maintenance Results * Due to [facility] law, this organization might not be sharing negative HIV tests. * MRI Abdomen, Outside Result (05/08/2024) Anatomical Region Laterality Modality Other 05/08/2024 us Onbase Scan [facility] AMB EXTERNAL RESULT PROCEDURE S Final Result * HM COLONOSCOPY (11/07/2018) 11/07/2018 us Onbase Scan [facility] HEALTH MAINTENANCE Final Resu lt from Last 3 Months or Most Recently Relevant to Health Maintenance Insurance MEDICARE [facility] HSNO/FREE CARE Care Teams Call Center Agent Relationship Specialty Start Date End Date George Dillon [address] [place] [address] PCP - General Internal Medicine 08/16/22
--- OUTSIDE RECORDS SUMMARY | 2024-07-03 17:20 | XMS_ITS | Clinical Summary ---
Author Organization [facility] [employer] Address [address] [place] [address] [address] [place] [address] Care Team Providers Care Senior Software Engineer Name Role Phone Marian, Pilar Unavailable Unavailable [...] age to complete this topic Care Teams Senior Software Engineer Relationship Specialty Start Date End Date Pilar [employer] [facility] Navigator [facility] 09/01/22
== END 2024-07-03 12:40 | disposition home or self-care (01) ==
LOC: HO.XRAY 12:39
PROVIDERS: PCP Internal Medicine; Visit Provider Internal Medicine Rheumatology
DX: G56.03 Carpal tunnel syndrome, bilateral upper limbs (principal); M79.642 Pain in left hand; M79.641 Pain in right hand; M65.949 Unspecified synovitis and tenosynovitis, unspecified hand
CPT/HCPCS: 20526; 73130; 99212; J2003; J3300

== ENCOUNTER 2024-07-03 12:39 | Outpatient (AMB) | payer MEDICARE, OTHER, SELFPAY ==
--- NOTE | 2024-07-03 12:42 | MHC.OFFVIS ---
Vital Signs 07/03/24 12:43 Height 5 ft 1 in Weight 131 lb 13.383 oz BMI 24.9 BP 108/76 Blood Pressure Location Lt brachial Position Sitting Pulse 78 Pulse Source Pulse Oximeter Pulse Oximetry (%) 96 Oxygen Delivery Method Room Air Intake Visit Reasons: Follow Up 3mo Intake Note: Patient presents for follow up on osteoarthritis, carpal tunnel syndrome. Pt states that she is looking to get some injections her left hand has gotten progressively worse and is only able to use a few fingers on that hand and on her right hand she states she has minimal health.Pt states that she needs a letter stating what her diagnosis is and how many appts she has been too. Allergies adhesive tape Allergy (Mild, Verified 07/03/24 12:49) Rash cefaclor [From CECLOR] Allergy (Unknown, Verified 07/03/24 12:49) HIVES erythromycin base [ERYTHROMYCIN BASE] Allergy (Unknown, Verified 07/03/24 12:49) UNK Sulfa (Sulfonamide Antibiotics) [SULFA (SULFONAMIDE ANTIBIOTICS)] Allergy (Unknown, Verified 07/03/24 12:49) HIVES z pack Allergy (Mild, Uncoded 03/29/24 15:05) hives HPI HPI Follow Up 3mo: Details: Needs letter for housing recertification specifying her visit dates, diagnosis, and where she has had her testing for workup done. She continues to have pain in left 4th and 5th finger with weakness and radiation described as sharp pain up her arm. She continues to have pain in her hands. Pain in palm of right hand is constant. She gets at least 3 months relief with cortisone injection for treatment of chronic tenosynovitis. Patient had an MRI of cervical spine ordered by [facility] Dr. Rice that reveal multilevel degenerative changes including facet arthropathy, foraminal narrowing, mild degenerative disc disease and spinal canal narrowing. She continues to take meloxicam 15 mg daily. [facility] Medical History (Updated 07/03/24 @ 22:26 by Christoph Odell MD) Sacral foraminal stenosis Tear of tendon of rotator cuff Rotator cuff tear, right Review of Systems Const All systems reviewed & are unremarkable except as noted in HPI and below Physical Exam Vital Signs: Last Vital Signs Pulse 78 07/03/24 12:43 BP 108/76 07/03/24 12:43 Pulse Ox 96 07/03/24 12:43 Oxygen Delivery Method Room Air 07/03/24 12:43 BMI result Body Mass Index 24.9 Const Other: General: Comfortable Skin: No lesions seen MSK: No synovitis. tenderness to palpate R 3rd palmar aspect of MCP without nodule palpated. She is able to flex fingers and make a fist with her hands. Tender bilateral PIPs and left 4-5th MCP without synovitis. Tender wrists bilateral. Decreased sensation of left 4th and 5th finger dorsally and ulnar side. Office Procedures AMB Tendon Injection Tendon Injection Details: Bilateral carpal tunnel Prep: site was prepped using aseptic technique Injected into each site: 20 mg of, Kenalog, with 0.5 mL of and 1% plain lidocaine Procedure: The patient tolerated the procedure well. Postprocedure protocol was discussed with patient. All charges added?: Additional procedure code (CPT) needed (CPT code 43268) AMB Tendon Injection Tendon Injection All charges added?: Additional procedure code (CPT) needed (CPT code 26826) Office Meds Kenalog 40 mg/mL suspension for injection Performing Provider: Christoph Odell MD Performing Location: [facility] Administered by: Christoph Odell MD on 07/03/24 21:50 Dose Route Admin Location Dispensed Lot Number Expiration Date [facility] Gear Milling Machine Set Up Operator 20 mg Tendon Sheath Inj. 1 mL AP [id number] [facility] lidocaine (PF) 10 mg/mL (1 %) injection solution Performing Provider: Christoph Odell MD Performing Location: [facility] Administered by: Christoph Odell MD on 07/03/24 21:50 Dose Route Admin Location Dispensed Lot Number Expiration Date [facility] Gear Milling Machine Set Up Operator 0.5 mL Infiltration 2 mL [id number] [facility] Kenalog 40 mg/mL suspension for injection Performing Provider: Christoph Odell MD Performing Location: [facility] Administered by: Christoph Odell MD on 07/03/24 21:50 Dose Route Admin Location Dispensed Lot Number Expiration Date [facility] Gear Milling Machine Set Up Operator 20 mg Tendon Sheath Inj. 1 mL AP [id number] [employer] lidocaine (PF) 10 mg/mL (1 %) injection solution Performing Provider: Christoph Odell MD Performing Location: [facility] Administered by: Christoph Odell MD on 07/03/24 21:50 Dose Route Admin Location Dispensed Lot Number Expiration Date [facility] Gear Milling Machine Set Up Operator 0.5 mL Infiltration 2 mL [id number] [facility] Assessment & Plan Assessment & Plan (1) Bilateral hand pain: Comment: Hx low titre RF, polyarthralgias in small joints of hands with background alexsandra OA hands. MRI right hand without contrast reveals trace joint effusion of radial carpal joint, which can be seen in inflammatory arthritis. However, MRI right hand was repeated with and without contrast and did not reveal inflammatory arthritis. Patient was reassured that she does not have rheumatoid arthritis. Code(s): M79.641 - Pain in right hand; M79.642 - Pain in left hand Category: Medical Plan: Continue meloxicam 15 mg daily Patient had labs 1-2 months ago at [facility]. I am requesting lab results. Letter for housing recertification written for patient Return to clinic in 3 months (2) Tenosynovitis of finger: Comment: Recurrent pain localized to palmar 3rd MCP of unclear etiology. Last visit she was unable to flex R 3rd finger actively but passive ROM was intact, concerning for flexor tendon pathology such as tendon tear but MRI of right hand with and without contrast did not reveal pathology of left flexor tendon including tenosynovitis. She has had nodule on flexor tendon at A1 pully and benefit with cortisone injection targeting flexor tendon at A1 pully but her presentation is not consistent with classic trigger finger. Since her presentation is atypical for trigger finger despite temporary relief with cortisone injection targeting trigger finger treatment, I am requesting hand surgeon to weigh in. Code(s): M65.949 - Unspecified synovitis and tenosynovitis, unspecified hand Category: Medical Plan: Hand surgery consultation for further evaluation and management (3) Left hand pain: Comment: She has localized pain to left 4th and 5th MCP with reduced sensation and sharp pain radiating to arm. EMG of left upper extremity revealed known median neuropathy without any new pathology that can account for her symptomatology. I have reviewed her MRI C-spine ordered by [facility] Dr. Rice that she had done in April 2024, which reveal facet arthropathy, foraminal narrowing and cervical canal stenosis that can contribute to nerve impingement but recent L UE EMG did not reveal such pathology. I am recommending that she follow-up with Dr. Rice about her hand/arm symptoms and discuss recent MRI results with him for consideration of targeted treatment to C-spine with cortisone injection to try to alleviate her symptoms. I also recommend occupational therapy to try to improve hand and arm strength. Code(s): M79.642 - Pain in left hand Category: Medical Plan: I will be ordering left hand x-ray to evaluate MCP pain OT ordered. Patient prefers to have it done local to her home in [place] Consultation with Dr. Rice to follow-up on C-spine MRI results and left hand/arm symptoms (4) Carpal tunnel syndrome: Comment: Bilateral. Uncontrolled pain and numbness in hands. Code(s): G56.00 - Carpal tunnel syndrome, unspecified upper limb Category: Medical Qualifiers: Laterality: bilateral Qualified Code(s): G56.03 - Carpal tunnel syndrome, bilateral upper limbs Plan: Patient received cortisone injections to bilateral carpal tunnels Return to clinic in 3 months Orders: Orders XR hand LT min 3V Today M79.642 - Pain in left hand AMB Tendon Injection Today G56.03 - Carpal tunnel syndrome, bilateral upper limbs AMB Tendon Injection Today G56.03 - Carpal tunnel syndrome, bilateral upper limbs Referrals Hand Surgery Referral M65.949 - Unspecified synovitis and tenosynovitis, unspecified hand Medications: Refilled meloxicam Replace previous prescriptions. Fill this rx with one refill. 15 mg PO DAILY 90 tabs 0RF Coding Level of Care Code Est Pt Level 5 (11704) Complex EM visit Add On G2211 Diagnoses Bilateral hand pain M79.641; M79.642 Tenosynovitis of finger M65.949 Left hand pain M79.642 Bilateral carpal tunnel syndrome G56.03 Laterality: bilateral CPT Codes Tendon Injection - All charges added?: Additional procedure code (CPT) needed ([id number]) Tendon Injection - All charges added?: Additional procedure code (CPT) needed ([id number]) Time Spent (min) 43
[2024-07-03 12:43] VITALS: BP 108/76; PULSE 78; O2SAT 96; BMI 24.9
--- OUTSIDE RECORDS SUMMARY | 2024-07-03 15:14 | XMS_ITS | Clinical Summary ---
Author Organization [facility] Address [address] [place] [address] Care Team Providers Care Production Control Scheduler Name Role Phone WilmaErfemw Primary Care Provider [phone] Allergies Active Allergy Reactions Criticality Noted Date [...] tablet,chewable Chew and swallow by mouth. Active Encounters Date Type Department Care Team Description 05/09/2024 myChart Message [facility] [address] [place] [address] Podiatric Aide: Lisa Mackay MD MRI 04/17/2024 Telephone [facility] [address] [place] [address] Podiatric Aide: Fay Sánchez Telephone Intake, Staff 04/10/2024 2:00 PM EST Office Visit [facility] [address] [place] [address] [phone] Podiatric Aide: Juan Puri MD PhD 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) 04/09/2024 Telephone [facility] [address] [place] [address]32 Podiatric Aide: Fay Sánchez Telephone Intake, Staff from Last 3 Months Social History Tobacco [...] Info) Description 11/21/2024 9:30 AM EDT Follow-Up [facility] [address] [place] [address] [phone] Podiatric Aide: Lisa Mackay MD [address] [place] [phone] Health Maintenance Due Date Last Done Comments [...] Additional history exists Procedures * Due to [place] law, this organization might not be sharing negative HIV tests. Procedure Name Priority Date/Time Associated Diagnosis Comments AMB EXTERNAL MRI ABDOMEN, OU TSIDE RESULT 05/08/2024 COLONOSCOPY 11/07/2018 from Last 3 Months or Most Recently Relevant to Health Maintenance Results * Due to [place] law, this organization might not be sharing negative HIV tests. * MRI Abdomen, Outside Result (05/08/2024) Anatomical Region Laterality Modality Other 05/08/2024 us Onbase Scan [facility] AMB EXTERNAL RESULT PROCEDURE S Final Result * COLONOSCOPY (11/07/2018) 11/07/2018 us Onbase Scan [facility] HEALTH MAINTENANCE Final Resu lt from Last 3 Months or Most Recently Relevant to Health Maintenance Insurance MEDICARE [facility] HSNO/FREE CARE Care Teams Production Control Scheduler Relationship Specialty Start Date End Date George Dillon [address] [place] [phone] PCP - General Internal Medicine 08/16/22
--- OUTSIDE RECORDS SUMMARY | 2024-07-03 15:14 | XMS_ITS | Clinical Summary ---
Author Organization [facility] [employer] Address [address] [place] [address] [address] [place] [address] Care Team Providers Care Glass Finisher Name Role Phone Marian, Pilar Unavailable Unavailable [...] age to complete this topic Care Teams Glass Finisher Relationship Specialty Start Date End Date Pilar [employer] [facility] Nav[facility] 09/01/22
--- OUTSIDE RECORDS SUMMARY | 2024-07-03 15:14 | XMS_ITS | Referral Summary ---
Author Organization [facility] Address [address] [place] [address] Care Team Providers Care Foreign Banknote Teller Name Role Phone PurdyGeorge ramirez Primary Care Provider [phone] Encounters Date Type Department Care Team Description 05/09/2024 myChart Message [facility] [address] [place] [phone] Medical Device Engineer: Lisa Mackay MD MRI 04/17/2024 Telephone [facility] [address] [place] [phone] Medical Device Engineer: Fay Sánchez Telephone Intake, Staff 04/10/2024 2:00 PM EST Office Visit [facility] [address] [place] [phone] Medical Device Engineer: Juan Puri MD PhD 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 Procedure Name Priority Date/Time Associated Diagnosis Comments AMB EXTERNAL MRI ABDOMEN, OU TSIDE RESULT 05/08/2024 HM COLONOSCOPY 11/07/2018 from Last 3 Months or Most Recently Relevant to Health Maintenance Results * Due to [facility] law, this organization might not be sharing negative HIV tests. * MRI Abdomen, Outside Result (05/08/2024) Anatomical Region Laterality Modality Other 05/08/2024 us Onbase Scan [facility] AMB EXTERNAL RESULT PROCEDURE S Final Result * HM COLONOSCOPY (11/07/2018) 11/07/2018 us Onbase Scan [facility] HEALTH MAINTENANCE Final Resu lt from Last 3 Months or Most Recently Relevant to Health Maintenance Insurance [facility]IC[facility] HSNO/FREE CARE Care Teams Foreign Banknote Teller Relationship Specialty Start Date End Date George Dillon [address] [place] [phone] PCP - General Internal Medicine 08/16/22
== END 2024-07-03 13:35 | disposition home or self-care (01) ==
LOC: HO.RHES 12:40
PROVIDERS: PCP Internal Medicine; Visit Provider Internal Medicine Rheumatology
DX: G56.03 Carpal tunnel syndrome, bilateral upper limbs (principal); M65.949 Unspecified synovitis and tenosynovitis, unspecified hand
CPT/HCPCS: 20526; 99215

== ENCOUNTER → 2024-07-03 14:15 | Outpatient (BNV) | payer MEDICARE, OTHER, MEDICAID, SELFPAY | PROVIDERS: PCP Internal Medicine; Visit Provider Radiology Diagnostic Radiology | DX: M79.642 Pain in left hand (principal) | CPT/HCPCS: 73130 ==

== ENCOUNTER 2024-09-18 09:26 | Outpatient (AMB) | payer MEDICARE, OTHER, MEDICAID, SELFPAY ==
--- NOTE | 2024-09-18 09:30 | MHC.OFFVIS ---
Vital Signs 09/18/24 09:31 Height 5 ft 1 in Weight 138 lb BMI 26.1 BP 120/76 Blood Pressure Location Rt brachial Position Sitting Pulse 59 Pulse Source Pulse Oximeter Pulse Oximetry (%) 97 Oxygen Delivery Method Room Air Intake Visit Reasons: follow up Intake Note: Patient presents for follow up on osteoarthritis, carpal tunnel syndrome. Allergies adhesive tape Allergy (Mild, Verified 09/18/24 09:31) Rash cefaclor (From CECLOR) Allergy (Unknown, Verified 09/18/24 09:31) HIVES erythromycin base (ERYTHROMYCIN BASE) Allergy (Unknown, Verified 09/18/24 09:31) UNK Sulfa (Sulfonamide Antibiotics) (SULFA (SULFONAMIDE ANTIBIOTICS)) Allergy (Unknown, Verified 09/18/24 09:31) HIVES z pack Allergy (Mild, Uncoded 03/29/24 15:05) hives HPI HPI follow up: Details: Increase hand pain with OT. Occupational therapist was aggressive with repetitive exercises with patient, which brought a lb carpal tunnel symptoms earlier than usual. She has numbness in her hands. She has triggering of left 4th and 5th finger. [facility] Medical History Sacral foraminal stenosis Tear of tendon of rotator cuff Rotator cuff tear, right Physical Exam Vital Signs: Last Vital Signs Pulse 59 09/18/24 09:31 BP 120/76 09/18/24 09:31 Pulse Ox 97 09/18/24 09:31 Oxygen Delivery Method Room Air 09/18/24 09:31 BMI result Body Mass Index 26.1 Const Other: General: Comfortable Skin: No lesions seen MSK: Tender to palpate palmar aspect of 4th and 5th MCP with 5th MCP nodule palpated. Triggering of 4th and 5th finger observed. Office Procedures AMB Tendon Injection Tendon Injection Details: Left 4th and 5th trigger finger Prep: site was prepped using aseptic technique Injected into each site: 10 mg of, Kenalog, with 0.25 mL of and 1% plain lidocaine Procedure: Informed verbal consent was obtained The patient tolerated the procedure well. Postprocedure protocol was discussed with patient. 32227-Foinvf Tendon Sheath Injection All charges added?: Procedure code (CPT) selection complete AMB Tendon Injection Tendon Injection 14086-Jgcpyt Tendon Sheath Injection All charges added?: Procedure code (CPT) selection complete Office Meds Kenalog 40 mg/mL suspension for injection Performing Provider: Christoph Odell MD Performing Location: [facility] Documented (not given) by: Christoph Odell MD on 09/18/24 10:25 Dose Route Admin Location Dispensed Lot Number Expiration Date NDC Social Psychologist 10 mg Tendon Sheath Inj. mL Total Dispensed Waste n/a n/a lidocaine (PF) 10 mg/mL (1 %) injection solution Performing Provider: Christoph Odell MD Performing Location: [facility] Documented (not given) by: Christoph Odell MD on 09/18/24 10:25 Dose Route Admin Location Dispensed Lot Number Expiration Date NDC Social Psychologist 0.25 mL Infiltration mL Total Dispensed Waste n/a n/a Kenalog 40 mg/mL suspension for injection Performing Provider: Christoph Odell MD Performing Location: [facility] Documented (not given) by: Christoph Odell MD on 09/18/24 10:25 Dose Route Admin Location Dispensed Lot Number Expiration Date NDC Social Psychologist 10 mg Tendon Sheath Inj. mL Total Dispensed Waste n/a n/a lidocaine (PF) 10 mg/mL (1 %) injection solution Performing Provider: Christoph Odell MD Performing Location: [facility] Documented (not given) by: Chirstoph Odell MD on 09/18/24 10:25 Dose Route Admin Location Dispensed Lot Number Expiration Date NDC Social Psychologist 0.25 mL Infiltration mL Total Dispensed Waste n/a n/a Assessment & Plan Assessment & Plan (1) Tenosynovitis of finger: Comment: She has triggering of left 4th and 5th finger. Failed occupational therapy, which brought on recurrent triggering. She has an upcoming surgery for repair of right rotator cuff tendons and cleanup of osteoarthritis in 2 weeks. We discussed next steps in treatment. Code(s): M65.949 - Unspecified synovitis and tenosynovitis, unspecified hand Category: Medical Plan: Patient received cortisone injections to treat left 4th and 5th trigger fingers Return to clinic next week for management of bilateral carpal tunnel syndrome with cortisone injections Orders: Orders AMB Tendon Injection Today M65.949 - Unspecified synovitis and tenosynovitis, unspecified hand AMB Tendon Injection Today M65.949 - Unspecified synovitis and tenosynovitis, unspecified hand Medications: New Kenalog (triamcinolone acetonide) 10 mg (0.25 mL) Tendon Sheath Inj. ONCE 0.25 mL 0RF NS M65.949 - Unspecified synovitis and tenosynovitis, unspecified hand lidocaine (PF) 0.25 mL Infiltration ONCE 2 mL 0RF M65.949 - Unspecified synovitis and tenosynovitis, unspecified hand Kenalog (triamcinolone acetonide) 10 mg (0.25 mL) Tendon Sheath Inj. ONCE 0.25 mL 0RF NS M65.949 - Unspecified synovitis and tenosynovitis, unspecified hand lidocaine (PF) 0.25 mL Infiltration ONCE 2 mL 0RF M65.949 - Unspecified synovitis and tenosynovitis, unspecified hand Coding Level of Care Code Est Pt Level 3 (27702) Complex EM visit Add On G2211 Diagnoses Tenosynovitis of finger M65.949 CPT Codes Tendon Injection - Tendon Injection 1: 85103-Apjwft Tendon Sheath Injection ([id number]) Tendon Injection - Tendon Injection 1: 18601-Yydxki Tendon Sheath Injection ([id number])
[2024-09-18 09:31] VITALS: BP 120/76; PULSE 59; O2SAT 97; BMI 26.1
--- OUTSIDE RECORDS SUMMARY | 2024-09-18 10:07 | XMS_ITS | Data Portability ---
Author Organization [place] [facility], [facility] Address [address] [place] [id number] Care Team Providers Care Supervisor Poultry Processing Name Role Phone REGINA SALGADO Primary Care Provider [phone] TERRI AVILA OTHER KAMRON CABALLERO OTHER [facility] SCHEDULING O THER P[facility]A SUMMERS OTHER SAMIRA DONALD OTHER [phone] Assessment Encounter Date Assessment Date Assessment [...] with 18 guage in left AC by [facility] under my supervision for IV fluids for rehydration: 500 ml of 0.9% sodium chloride over 40 minutes. patient tolerated procedure well. Discussed with patient her need to follow up with her PCP and tuber helper tomorrow to set up appointments; PCP for [...] pertinent in my medical decision making today. [email or web address] Not available 02/25/2020 17:34:46 Plan of Treatment Reminders Order Date Submit Date Provider Last Modified By Organization Details Last Modified Time Details Appointments None recorded. Lab pro BNP (pro B-type natriureti c peptide), serum or plasma 2019 DARYL [facility] (Centralized Electronic Ordering - All Locations), Patient Can Go To The Location Of Their Choice, [address] 0 08:58:45 BMP + ionized calcium, serum or plasma 2019 [facility], [address] [place], [address], 0 16:07:14 CG4+ iStat 2019 DARYL [facility] (Centralized Electronic Ordering - All Locations), Patient Can Go To The Location Of Their Choice, [address] 1 20:05:10 urinalysis , dipstick 2019 [facility], [address] [place], [address], 0 10:53:18 culture, urine 2019 DARYL [facility] (Centralized Electronic Ordering - All Locations), Patient Can Go To The Location Of Their Choice, [address] 0 07:20:02 BMP, serum or plasma 2019 DARYL [facility] (Centralized Electronic Ordering - All Locations), Patient Can Go To The Location Of Their Choice, [address] 0 08:58:30 CBC w/ auto diff 2019 DARYL [facility] (Centralized Electronic Ordering - All Locations), Patient Can Go To The Location Of Their Choice, [address] 0 08:57:31 SARS CoV 2 RNA (COVID-19) , QL, casino banker-PCR, respirator y specimen 2019 DARYL [facility] (Centralized Electronic Ordering - All Locations), Patient Can Go To The Location Of Their Choice, [address] 0 14:29:28 rapid flu (A+B) 2019 [facility], [address] [place], [address], 0 18:05:57 BMP + ionized calcium, serum or plasma 2019 DARYL [facility] (Centralized Electronic Ordering - All Locations), Patient Can Go To The Location Of Their Choice, [address] 0 18:12:14 SARS CoV 2 RNA (COVID-19) , QL, casino banker-PCR, respirator y specimen 2019 [email or web address] [facility] (Centralized Electronic Ordering - All Locations), Patient Can Go To The Location Of Their Choice, [address] 0 17:52:54 Referral None recorded. Procedures None recorded. Surgeries None recorded. Imaging XR, chest, 2 view - Ordered by [facility] 2019 [email or web address] [facility] ([facility] [address], [place], [address], 0 00:53:05 Medication Orders Zofran 4 mg tablet 2019 [facility]FACE [id number], [address] [place], [address], 0 16:30:45 sodium chloride 0.9 % intravenou s solution 2019 Not available 1 20:03:36 Zofran 4 mg tablet 2019 [id number], [address] [place], [address], 0 16:15:04 Zofran ODT 4 mg disintegra ting tablet 2019 020 Not available 1 19:36:41 Patient TargetsNo targets recorded. Patient Instructions Encounter Date Encounter Id Patient Instructions Last Modified By Organization Details Last Modified Time 02/15/2020 [id number] You were seen to day for evaluation [...] results. .[facility] you [facility] today. We cannot always find the exact [...] in your condition between 8am-10pm, please [facility] at [phone] to help navigate your care. Viral Illness [...] in your condition between 8am-10pm, please call [facility] at [phone] to help navigate your care. Not available 02/15/2020 18:18:03 02/25/2020 [id number] [facility] came to your home today for you complaint of persistant (>10 days) fever, malaise, nausea and body aches. Your sodium was boarderline low we started an IV gave you 500ml of fluid for rehydration. We have performed a Urine Dipstick which was normal, further investigation of your urine will take place at [facility] reference lab as well, Complete blood count, basic metabolic panel, pro-BNP to look at your heart, SARS Cov-2 nasal swab and chest x-ray for adverse lung sounds in your right lower lobe. [facility] will call tomorrow to set up a time to come to your home to perfom the X-ray, You will call your PCP and Respiratory Tech tomorrow to set up appointments. We will call you with you lab results in a few days. Do not hesitate to seek emergency medical treatment if you symptoms become worse to include, changes in your mental status, confusion, passing out (symcope), worse fever, chills, shaking (rigors). Thank you for your visit with [facility] today. We cannot always find the exact cause of your symptoms during your initial visit. Please follow up with your primary care provider or specialist within 2-3 days to be rechecked or seek medical attention if your symptoms do not go away or get worse. If you develop any new or worsening symptoms and need after hours care, please go to nearest ER and/or call 911. If you have additional concerns or develop a change in your condition between 8am-10pm, please call [facility] at [phone] to help navigate your care. Viral Illness [...] in your condition between 8am-10pm, please call [facility] at [phone] to help navigate your care. [email or web address] Not available 02/25/2020 16:43:06 Reason for Referral None Reported. Results Created Date Observation Date Name Description Value Unit Range Abnormal Flag Note LastModifiedBy Organization Detail LastModifiedTime 02/15/2002/15/2020 rapid flu (A+B) Flu A negati ve Not Available [facility] [address] [place], [address], 02/15/2020 17:45:27 02/15/2002/15/2020 rapid flu (A+B) Flu B negati ve Not Available [facility] [address] [place], [address], 02/15/2020 17:45:27 02/15/20 20 02/15/2020 rapid flu (A+B) Control Visual ized / Valid Not Available [facility] [address] [place], [address], 02/15/2020 17:45:27 02/15/20 20 02/15/2020 BMP + ioniz ed calci um, serum or plasm a glu 146 mg/dL 70-105 Not Available [address], [address], 02/15/2020 18:12:14 02/15/20 20 02/15/2020 BMP + ioniz ed calci um, serum or plasm a BUN 18 mg/dL 8-26 Not Available [address], [address], 02/15/2020 18:12:14 02/15/20 20 02/15/2020 BMP + ioniz ed calci um, serum or plasm a crea 1.0 mg/dL 0.6-1. 3 Not Available [address], [address], 02/15/2020 18:12:14 02/15/20 20 02/15/2020 BMP + ioniz ed calci um, serum or plasm a Na 133 mmol/ L 138-14 6 Not Available [address], [address], 02/15/2020 18:12:14 02/15/20 20 02/15/2020 BMP + ioniz ed calci um, serum or plasm a K 3.5 mmol/ L 3.5-4. 9 Not Available [address], [address], 02/15/2020 18:12:14 02/15/20 20 02/15/2020 BMP + ioniz ed calci um, serum or plasm a cL 98 mmol/ L 98-109 Not Available [address], [address], 02/15/2020 18:12:14 02/15/20 20 02/15/2020 BMP + ioniz ed calci um, serum or plasm a TCO2 25 mmol/ L 24-29 Not Available [address], [address], 02/15/2020 18:12:14 02/15/20 20 02/15/2020 BMP + ioniz ed calci um, serum or plasm a angap 15 mmol/ L 10-20 Not Available [address], [address], 02/15/2020 18:12:14 02/15/20 20 02/15/2020 BMP + ioniz ed calci um, serum or plasm a ica 1.19 mmol/ L 1.12-1 .32 Not Available [address], [address], 02/15/2020 18:12:14 02/15/20 20 02/15/2020 BMP + ioniz ed calci um, serum or plasm a HCT 46 %pcv 38-51 Not Available [address], [address], 02/15/2020 18:12:14 02/15/20 20 02/15/2020 BMP + ioniz ed calci um, serum or plasm a Hb 15.6 g/dL 12-17 Not Available [address], [address], 02/15/2020 18:12:14 02/25/20 20 02/25/2020 CBC w/ auto diff WBC 7.0 K/mm3 (4.0-1 1.0) Not Available [facility] (Centralized Electronic Ordering - All Locations) Patient Can Go To The Location Of Their Choice, 02/25/2020 18:29:02/25/2002/25/2020 CBC w/ auto diff RBC 4.60 M/mm3 (4.20- 5.40) Not Available [facility] (Centralized Electronic Ordering - All Locations) Patient Can Go To The Location Of Their Choice, 02/25/2020 18::02/25/2002/25/2020 CBC w/ auto diff HGB 13.9 gm/dL (11.7- 15.5) Not Available [facility] (Centralized Electronic Ordering - All Locations) Patient Can Go To The Location Of Their Choice, 02/25/2020 18::02/25/2002/25/2020 CBC w/ auto diff HCT 42.8 % (35.7- 45.8) Not Available [facility] (Centralized Electronic Ordering - All Locations) Patient Can Go To The Location Of Their Choice, 02/25/2020 18:29:02/25/2002/25/2020 CBC w/ auto diff MCV 93.0 fL (80.0- 100.0) Not Available [facility] (Centralized Electronic Ordering - All Locations) Patient Can Go To The Location Of Their Choice, 02/25/2020 18:29:02/25/2002/25/2020 CBC w/ auto diff MCH 30.2 pg (27.0- 34.0) Not Available [facility] (Centralized Electronic Ordering - All Locations) Patient Can Go To The Location Of Their Choice, 02/25/2020 18:29:02/25/2002/25/2020 CBC w/ auto diff MCHC 32.5 g/dL (33.0- 37.0) low Not Available [facility] (Centralized Electronic Ordering - All Locations) Patient Can Go To The Location Of Their Choice, 02/25/2020 18:29:02/25/2002/25/2020 CBC w/ auto diff plt 251 K/mm3 [...] Go To The Location Of Their Choice, [id number] 02/25/2020 18:29:29 02/25/20 20 02/25/2020 CBC w/ auto diff abs. NRBC 0.0 K/mm3 Not Available [facility] (Centralized Electronic Ordering - All Locations) Patient Can Go To The Location Of Their Choice, [id number] 02/25/2020 18:29:29 02/25/2002/25/2020 CBC w/ auto diff neut # 5.0 [...] Go To The Location Of Their Choice, [id number] 02/25/2020 18:29:29 02/25/20 20 02/25/2020 CBC w/ [...] Go To The Location Of Their Choice, [id number] 02/25/2020 19:04:50 02/25/2002/26/2020 SARS CoV 2 RNA (COVI D-19) , QL, casino banker-P CR, respi rator y speci men covid-19 PCR overall result (neg) normal NEGAT NICKOLAS 2019- novel Coron aviru s (2018nCoV ) not detec sadie by real- time RT-PC R. Note: If clini karen suspi cion for COVID -19 is high, tiesha nue to maint ain preca ution s and consi corky repea t testi ng. Resul t repor sadie to [place] [facility]. To preve nt error s in diagn [...] perfo rmed by real time PCR [facility] SA [employer]0 SARS- CoV-2 test. Not Available [facility] (Centralized Electronic Ordering - All Locations) Patient Can Go To The Location Of Their Choice, [id number] 02/26/2020 11:23:53 02/25/2002/25/2020 cultu re, urine specimen description URINE CLEAN CATCH/ MIDSTR EAM Not Available [facility] (Centralized Electronic Ordering - All Locations) Patient Can Go To The Location Of Their Choice, [id number] 02/27/2020 07:35:55 02/25/2002/25/2020 cultu re, urine special requests NONE Not Available [facility] (Centralized [facility] Ordering - All Locations) Patient Can Go To The Location Of Their Choice, [address] 02/27/2020 07:35:55 02/25/2002/27/2020 cultu re, urine culture NO GROWTH Not Available [facility] (Centralized Electronic Ordering - All Locations) Patient Can Go To The Location Of Their Choice, [id number] 02/27/2020 07:35:55 02/25/2002/27/2020 cultu re, urine report status FINAL 2019 Not Available [facility] (Centralized Electronic Ordering - All Locations) Patient Can Go To The Location Of Their Choice, [id number] 02/27/2020 07:35:55 02/25/2002/25/2020 BMP + ioniz ed calci um, serum or plasm a glu 107 mg/dL 70-105 Not Available [facility] [address] [place], [address], 02/25/2020 16:07:14 02/25/20 20 02/25/2020 BMP + ioniz ed calci um, serum or plasm a BUN 14 mg/dL 8-26 Not Available [facility] [address] [place], [address], 02/25/2020 16:07:14 02/25/20 20 02/25/2020 BMP + ioniz ed calci um, serum or plasm a crea 0.8 mg/dL 0.6-1. 3 Not Available [facility] [address] [place], [address], 02/25/2020 16:07:14 02/25/20 20 02/25/2020 BMP + ioniz ed calci um, serum or plasm a Na 134 mmol/ L 138-14 6 Not Available [facility] [address] [place], [address], 02/25/2020 16:07:14 02/25/20 20 02/25/2020 BMP + ioniz ed calci um, serum or plasm a K 3.9 mmol/ L 3.5-4. 9 Not Available [facility] [address] [place], [address], 02/25/2020 16:07:14 02/25/20 20 02/25/2020 BMP + ioniz ed calci um, serum or plasm a cL 99 mmol/ L 98-109 Not Available [address], [address], 02/25/2020 16:07:14 02/25/20 20 02/25/2020 BMP + ioniz ed calci um, serum or plasm a TCO2 27 mmol/ L 24-29 Not Available [address], [address], 02/25/2020 16:07:14 02/25/20 20 02/25/2020 BMP + ioniz ed calci um, serum or plasm a angap 14 mmol/ L 10-20 Not Available [address], [address], 02/25/2020 16:07:14 02/25/20 20 02/25/2020 BMP + ioniz ed calci um, serum or plasm a ica 1.15 mmol/ L 1.12-1 .32 Not Available [address], [address], 02/25/2020 16:07:14 02/25/20 20 02/25/2020 BMP + ioniz ed calci um, serum or plasm a HCT 43 %pcv 38-51 Not Available [address], [address], 02/25/2020 16:07:14 02/25/20 20 02/25/2020 BMP + ioniz ed calci um, serum or plasm a Hb 14.6 g/dL 12-17 Not Available [address], [address], 02/25/2020 16:07:14 Result Notes None recorded. Procedures Surgical History Date Name Laterality Status Provider Name and Address Organization Details Recorded Time 02/25/20 Venipuncture - completed ELIE DILL, GRISELDA [address]t, [place], [address], [place] [facility] 02/25/2020 16:09:28 02/25/20 20 IV Start Procedure - completed ELIE DILL NP [address], [place], [address], [place] [facility] 02/25/2020 16:09:06 02/15/20 20 Venipuncture - completed Melisa Rodriguez NP [address], [place], [address], [place] [facility] 02/20/2020 10:33:31 biopsy of liver completed Melisa Rodriguez NP [address], [place], [address], [place] [facility] 02/15/2020 17:41:20 Imaging Results None recorded. Procedure Notes None recorded. Medical Equipment None Reported. Allergies Allergen ID Allergen Name Allergen Category Reaction Reaction Severity Criticality Documentation Date Start Date Code Code System Note Provider Name and Address Organization Details Recorded Time 318808 Ceclor medicatio n Not available Not available Not available 02/15/2020 62029 5 RxNorm Melisa Rodriguez NP [address], [place], [address], [place] [facility] 0 17:37:02 383082 clarithro mycin medicatio n Not available Not available Not available 02/15/2020 87718 RxNorm Melisa Rodriguez NP [address], [place], [address], [place] [facility] 0 17:37:11 103216 Bactrim medicatio n Not available Not available Not available 02/15/2020 03327 9 RxNorm Melisa Rodriguez NP [address], [place], [address], [place] [facility] 0 17:37:42 [id number] Substance with sulfonami de structure and antibacte rial mechanism of action (substanc e) medicatio n Not available Not available Not available 02/15/2020 80870 8003 SNOMED Melisa Rodriguez NP [address], [place], [address], [place] [facility] 0 17:38:06 [...] Day Smoker Melisa Rodriguez, GRISELDA [address] [place], [address], [place] [facility] 02/15/2020 17:35:16 Do You [...] Visiting Friends Or Family Or Going To [employer] Or Club Meetings) 1 Or 2 Times [...] available 2019 17:34:06 Medical History Condition Response Coronary Artery Disease N COPD N Depression Y Diabetes N Cancer Y Stroke N Asthma Y High Cholesterol N Pulmonary Embolism N Hypertension N Kidney Disease N Gynecological HistoryNo gynecological history recorded. Obstetrics History GPAL:G 0 P 0 0 0 0 Past Encounters Encounter ID Performer Location Encounter Start Date Encounter Closed Date Diagnosis/Indication Diagnosis SNOMED-CT Code Diagnosis ICD10 Code Diagnosis Note [id number] Melisa Rodriguez NP [facility]NOTE 3[facility] - HOME [address] [facility] [place] [address] 02/15/2020 17:29:34 02/18/2020 15:23:32 Fever 490534384 R50.9 Overview/H istory: Patient has suffered numerous [...] Protective Equipment (PPE), including surgical mask with face-shiel d, gloves, gown and shoe covers were donned and doffed jarocho pagan and all equipment cleaned using approved technique with germicidal disposable wipes prior to and after care of this patient according to [facility]'s infection prevention protocols. In order to obtain further informatio n and compare any laboratory results/va lues, I have accessed old patient records. This informatio n was pertinent in my medical decision making today. Suspected COVID-19 49170 4004 Z03.89 Nausea and vomiting 1693 2000 R11.2 Nausea 334652523 R11.0 [id number] ELIE DILL NP [facility] [place]NOTE 3] - HOME [address] [place] [address] 02/25/2020 14:50:32 02/26/2020 10:38:53 Fever 672413561 R50.9 Community acquired pneumonia 662352819 J18.9 Exposure t o communicable disease 092148193 Z20.828 Systolic murmur 95949894 R01.1 Nausea 234718997 R11.0 Health Concerns Section Related Observation LastModified by Organization Detai ls LastModified Time None Recorded Concern Status LastModified by Organization Details LastModified Time None Recorded Advance Directives Directive N: Payers Insurance Date Sequence Insurance Name Policy Number Policy Boyd Covered Member ID Boyd Member ID Guarantor Name 02/15/2020 1 *SELF PAY* Esmer Mims [id number] Esmer Mims 04/25/2020 1 [place]ICARE [place]: [employer] Esmer Mims [id number] Esmer Mims 04/25/2020 2 [facility] (MEDICARE SUPPLEMENT) Esmer Mims [id number] Esmer Mims Notes Date Note Type Note Provider Name and Address Organization Details Recorded Time 0 text/html 44 year old alert female who [facility] and not known to this provider. [...] GERD. Melisa Rodriguez NP [address], [place], [address], [place] [facility] 06/04/2020 09:07:28 0 text/html 44 y/o female [...] (negative). ELIE DILL NP [address], [place], [address], [place] [facility] 02/25/2020 17:34:57 OBGyn Episode No OBEpisode recorded.
== END 2024-09-18 10:02 | disposition home or self-care (01) ==
LOC: HO.RHES 09:27
PROVIDERS: PCP Internal Medicine; Visit Provider Internal Medicine Rheumatology
DX: M65.942 Unspecified synovitis and tenosynovitis, left hand (principal); M65.342 Trigger finger, left ring finger; M65.352 Trigger finger, left little finger
CPT/HCPCS: 20552; 99213

== ENCOUNTER → 2024-09-18 09:26 | Outpatient (BNVA) | payer MEDICARE, OTHER, MEDICAID, SELFPAY | PROVIDERS: PCP Internal Medicine; Visit Provider Internal Medicine Rheumatology | DX: M65.342 Trigger finger, left ring finger (principal); M65.352 Trigger finger, left little finger; M65.942 Unspecified synovitis and tenosynovitis, left hand | CPT/HCPCS: 20552; 99212; J2003; J3300 ==

== ENCOUNTER 2024-09-27 14:26 | Outpatient (REF) | payer MEDICARE, OTHER, MEDICAID, SELFPAY ==
[2024-09-27 17:55] LABS: Alanine Aminotransferase 15 U/L (0-31); Aspartate Amino Transferase 23 U/L (5-31); Estimated Glomerular Filt Rate > 60
== END 2024-09-27 14:27 | disposition home or self-care (01) ==
LOC: HO.HKASLDS 14:26
PROVIDERS: PCP Internal Medicine; Visit Provider Internal Medicine Rheumatology
DX: G56.03 Carpal tunnel syndrome, bilateral upper limbs (principal); M65.942 Unspecified synovitis and tenosynovitis, left hand; R29.898 Other symptoms and signs involving the musculoskeletal system; M79.641 Pain in right hand; M79.642 Pain in left hand; Z79.899 Other long term (current) drug therapy; Z79.1 Long term (current) use of non-steroidal anti-inflammatories (NSAID)
CPT/HCPCS: 20526; 36415; 82565; 84450; 84460; 99212; J2003; J3300

== ENCOUNTER 2024-09-27 14:26 | Outpatient (AMB) | payer MEDICARE, OTHER, MEDICAID, SELFPAY ==
--- OUTSIDE RECORDS SUMMARY | 2024-09-27 14:29 | XMS_ITS | Clinical Summary ---
Author Organization [employer] Address [address] [place] [address] 7 [place] [address] Care Team Providers Care Bottom Finisher Name Role Phone Marian, Pilar Unavailable [...] 1975 FIT 1975 FOBT 1975 Sigmoidoscopy 1975 Disability Screening 1975 Alcohol/Substance Use Screening 1987 Tobacco Screening 1987 Family Planning (PISQ) 1990 Hepatitis B Vaccines (1 of 3 - 19+ 3-dose series) 1994 Pap Smear 1996 Cervical Cancer Screening 2005 HPV/Cotest 2005 Mammogram 2015 COVID-19 Vaccine ( season) 2023 12/16/2022, 02/27/2021, 07/03/2020, Additional history exists Influenza Vaccine (Season Ended) 2024 01/06/2023, 01/01/2021, 01/26/2017, Additional history exists Zoster Vaccines (1 of 2) 2025 DTaP/Tdap/Td Vaccines (4 - Td or Tdap) 11/25/2029 11/26/2019, 08/20/2010, 05/19/2010 RSV Patients and Patients Aged 60 years or older (1 - 1-dose 75+ series) 2050 Pneumococcal Vaccine: Pediatrics (0 to 5 Years) and At-Risk Patients (6 to 49) Years Aged Out 01/06/2023, 07/06/2021 No longer eligibl [...] patient's age to complete this topic Meningococcal B Vaccine Aged Out No l onger eligible based on patient's age to complete this topic Meningococcal Vaccine Aged Out No vani kelsy eligible based on patient's age to complete this topic RSV under 20 months Aged Out No longe r eligible based on patient's age to complete this topic Rotavirus Vaccines Aged Out No longer eligible based on patient's age to complete this topic Care Teams Bottom Finisher Relationship Specialty Start Date End Date Pilar [facility] Health Navigator Financial Counseling and Assistance Services 09/01/22
--- OUTSIDE RECORDS SUMMARY | 2024-09-27 14:29 | XMS_ITS | Referral Summary ---
Author Organization [facility] Address [address] [place] [address] Care Team Providers Care Animal Bounty Hunter Name Role Phone WilmaEfremw Primary Care Provider [phone] Allergies Active Allergy Reactions Criticality Noted Date [...] 66 04/10/2024 1:48 PM EST Temperature 36.1 C (97 F) 05/17/2023 9:49 AM EST Respiratory Rate 20 [...] Follow-Up [facility] [address] [place] [address] Director Of Food And Beverage Services: Lisa Mackay MD [address] [place] [address] Procedures * Due to [place] state law, this organization might not be sharing negative HIV tests. Procedure Name Priority Date/Time Associated Diagnosis Comments COLONOSCOPY 11/07/2018 from Last 3 Months or Most Recently Relevant to Health Maintenance Results * Due to [place] state law, this organization might not be sharing negative HIV tests. * COLONOSCOPY (11/07/2018) 11/07/2018 us Onbase Scan [facility] Final Resu lt from Last 3 Months or Most Recently Relevant to Health Maintenance Insurance MEDICARE [facility] HSNO/FREE CARE Care Teams Animal Bounty Hunter Relationship Specialty Start Date End Date George Dillon [address] [place] [id number] PCP - General Internal Medicine 08/16/22
--- OUTSIDE RECORDS SUMMARY | 2024-09-27 14:29 | XMS_ITS | Data Portability ---
Author Organization [place] [facility], [facility] Address [address] [place] [id number] Care Team Providers Care Senior Mortgage Underwriter Name Role Phone REGINA SALGADO Primary Care Provider TERRI AVILA OTHER KAMRON CABALLERO OTHER [facility] ENDO[facility]ET[facility] SCHEDULING O THER [...] after care of this patient according to [facility]'s infection prevention protocols. In order to obtain [...] after care of this patient according to [facility]'s infection prevention protocols. This patient is new [...] with 18 guage in left AC by [facility] under my supervision for IV fluids for rehydration: 500 ml of 0.9% sodium chloride over 40 minutes. patient tolerated procedure well. Discussed with patient her need to follow up with her PCP and retail parts professional tomorrow to set up appointments; PCP for [...] pertinent in my medical decision making today. [email or web address] Not available 02/25/2020 17:34:46 Plan of Treatment Reminders Order Date Submit Date Provider Last Modified By Organization Details Last Modified Time Details Appointments None recorded. Lab pro BNP (pro B-type natriureti c peptide), serum or plasma 2019 DARYL [facility] (Centralized Electronic Ordering - All Locations), Patient Can Go To The Location Of Their Choice, [id number] 0 08:58:45 BMP + ionized calcium, serum or plasma 2019 [facility], [address] [place], [address], 0 16:07:14 CG4+ iStat 2019 DARYL [facility] (Centralized Electronic Ordering - All Locations), Patient Can Go To The Location Of Their Choice, [id number] 1 20:05:10 urinalysis , dipstick 2019 [facility], [address] [place], [address], 0 10:53:18 culture, urine 2019 DARYL [facility] (Centralized Electronic Ordering - All Locations), Patient Can Go To The Location Of Their Choice, [id number] 0 07:20:02 BMP, serum or plasma 2019 DARYL [facility] (Centralized Electronic Ordering - All Locations), Patient Can Go To The Location Of Their Choice, [address] 0 08:58:30 CBC w/ auto diff 2019 DARYL [facility] (Centralized Electronic Ordering - All Locations), Patient Can Go To The Location Of Their Choice, [address] 0 08:57:31 SARS CoV 2 RNA (COVID-19) , QL, bite block maker-PCR, respirator y specimen 2019 DARYL [facility] (Centralized Electronic Ordering - All Locations), Patient Can Go To The Location Of Their Choice, [address] 0 14:29:28 rapid flu (A+B) 2019 [facility], [address] [place], [address], 0 18:05:57 BMP + ionized calcium, serum or plasma 2019 DARYL [facility] (Centralized Electronic Ordering - All Locations), Patient Can Go To The Location Of Their Choice, [id number] 0 18:12:14 SARS CoV 2 RNA (COVID-19) , QL, bite block maker-PCR, respirator y specimen 2019 [email or web address] [facility] (Centralized Electronic Ordering - All Locations), Patient Can Go To The Location Of Their Choice, [address] 0 17:52:54 Referral None recorded. Procedures None recorded. Surgeries None recorded. Imaging XR, chest, 2 view - Ordered by [facility] 2019 [email or web address] [facility] [address] [facility], [place], [address], 0 00:53:05 Medication Orders Zofran 4 mg tablet 2019 INTERFACE [id number], [address] [place], [address], 0 16:30:45 sodium chloride 0.9 % intravenou s solution 2019 Not available 1 20:03:36 Zofran 4 mg tablet 2019 [email or web address] [id number], [address] [place], [address], 0 16:15:04 Zofran ODT 4 mg disintegra ting tablet 2019 020 Not available 1 19:36:41 Patient TargetsNo targets recorded. Patient Instructions Encounter Date Encounter Id Patient Instructions Last Modified By Organization Details Last Modified Time 02/15/2020 [id number] You were seen to day for evaluation [...] results. .Thank you for your visit with [facility] today. We cannot always find the [...] in your condition between 8am-10pm, please call [facility] at [phone] to help navigate your care. Viral Illness [...] in your condition between 8am-10pm, please call [employer] at [phone] to help navigate your care. Not available 02/15/2020 18:18:03 02/25/2020 [id number] [employer] came to your home today for you complaint of persistant (>10 days) fever, malaise, nausea and body aches. Your sodium was boarderline low we started an IV gave you 500ml of fluid for rehydration. We have performed a Urine Dipstick which was normal, further investigation of your urine will take place at [facility] reference lab as well, Complete blood count, basic metabolic panel, pro-BNP to look at your heart, SARS Cov-2 nasal swab and chest x-ray for adverse lung sounds in your right lower lobe. [employer] will call tomorrow to set up a time to come to your home to perfom the X-ray, You will call your PCP and Fill Manager tomorrow to set up appointments. We will call you with you lab results in a few days. Do not hesitate to seek emergency medical treatment if you symptoms become worse to include, changes in your mental status, confusion, passing out (symcope), worse fever, chills, shaking (rigors). Thank you for your visit with [employer] today. We cannot always find the exact [...] in your condition between 8am-10pm, please call [facility] at [phone] to help navigate your care. Viral Illness [...] condition between 8am-10pm, please call [facility] at [phone] to help navigate your care. [email or web address] Not available 02/25/2020 16:43:06 Reason for Referral None Reported. Results Created Date Observation Date Name Description Value Unit Range Abnormal Flag Note LastModifiedBy Organization Detail LastModifiedTime 02/15/2002/15/2020 rapid flu (A+B) Flu A negati ve Not Available [facility] [address] [place], [address], 02/15/2020 17:45:27 02/15/2002/15/2020 rapid flu (A+B) Flu B negati ve Not Available [facility] [address] [place], [address], 02/15/2020 17:45:27 02/15/20 20 02/15/2020 rapid flu (A+B) Control Visual ized / Valid Not Available [facility] [address] [place], [address], 02/15/2020 17:45:27 02/15/20 20 02/15/2020 BMP + ioniz ed calci um, serum or plasm a glu 146 mg/dL 70-105 Not Available [address], [address], 02/15/2020 18:12:14 02/15/20 20 02/15/2020 BMP + ioniz ed calci um, serum or plasm a BUN 18 mg/dL 8-26 Not Available [address], [address], 02/15/2020 18:12:14 02/15/20 20 02/15/2020 BMP + ioniz ed calci um, serum or plasm a crea 1.0 mg/dL 0.6-1. 3 Not Available [address], [address], 02/15/2020 18:12:14 02/15/20 20 02/15/2020 BMP + ioniz ed calci um, serum or plasm a Na 133 mmol/ L 138-14 6 Not Available [address], [address], 02/15/2020 18:12:14 02/15/20 20 02/15/2020 BMP + ioniz ed calci um, serum or plasm a K 3.5 mmol/ L 3.5-4. 9 Not Available [address], [address], 02/15/2020 18:12:14 02/15/20 20 02/15/2020 BMP + ioniz ed calci um, serum or plasm a cL 98 mmol/ L 98-109 Not Available [address], [address], 02/15/2020 18:12:14 02/15/20 20 02/15/2020 BMP + ioniz ed calci um, serum or plasm a TCO2 25 mmol/ L 24-29 Not Available [address], [address], 02/15/2020 18:12:14 02/15/20 20 02/15/2020 BMP + ioniz ed calci um, serum or plasm a angap 15 mmol/ L 10-20 Not Available [address], [address], 02/15/2020 18:12:14 02/15/20 20 02/15/2020 BMP + ioniz ed calci um, serum or plasm a ica 1.19 mmol/ L 1.12-1 .32 Not Available [address], [address], 02/15/2020 18:12:14 02/15/20 20 02/15/2020 BMP + ioniz ed calci um, serum or plasm a HCT 46 %pcv 38-51 Not Available [address], [address], 02/15/2020 18:12:14 02/15/20 20 02/15/2020 BMP + ioniz ed calci um, serum or plasm a Hb 15.6 g/dL 12-17 Not Available [address], [address], 02/15/2020 18:12:14 02/25/20 20 02/25/2020 CBC w/ [...] Go To The Location Of Their Choice, [id number] 02/25/2020 18:29:29 02/25/20 20 02/25/2020 CBC w/ auto diff abs. NRBC 0.0 K/mm3 Not Available [facility] (Centralized Electronic Ordering - All Locations) Patient Can Go To The Location Of Their Choice, [id number] 02/25/2020 18:29:29 02/25/2002/25/2020 CBC w/ auto diff [...] Go To The Location Of Their Choice, [id number] 02/25/2020 18:29:29 02/25/20 20 02/25/2020 CBC w/ [...] Go To The Location Of Their Choice, [address] 02/25/2020 19:04:50 02/25/2002/26/2020 SARS CoV 2 RNA (COVI D-19) , QL, bite block maker-P CR, respi rator y speci men covid-19 PCR overall result (neg) normal NEGAT NICKOLAS 2019- novel Coron aviru s (2018nCoV ) not detec sadie by real- time RT-PC R. Note: If clini kaern suspi cion for COVID -19 is high, tiesha nue to maint ain preca ution s and consi corky repea t testi ng. Resul t repor sadie to [place] [facility]. To preve nt error s in [...] perfo rmed by real time PCR [facility] [employer] SARS- CoV-2 test. Not Available [facility] (Centralized Electronic Ordering - All Locations) Patient Can Go To The Location Of Their Choice, [id number] 02/26/2020 11:23:53 02/25/2002/25/2020 cultu re, urine specimen description URINE CLEAN CATCH/ MIDSTR EAM Not Available [facility] (Centralized Electronic Ordering - All Locations) Patient Can Go To The Location Of Their Choice, [id number] 02/27/2020 07:35:55 02/25/2002/25/2020 cultu re, urine special requests NONE Not Available [facility] (Centralized Electronic Ordering - All Locations) Patient Can Go To The Location Of Their Choice, [id number] 02/27/2020 07:35:55 02/25/2002/27/2020 cultu re, urine culture NO GROWTH Not Available [facility] (Centralized Electronic Ordering - All Locations) Patient Can Go To The Location Of Their Choice, [address] 02/27/2020 07:35:55 02/25/2002/27/2020 cultu re, urine report status FINAL 2019 Not Available [facility] (Centralized Electronic Ordering - All Locations) Patient Can Go To The Location Of Their Choice, [address] 02/27/2020 07:35:55 02/25/2002/25/2020 BMP + ioniz ed calci um, serum or plasm a glu 107 mg/dL 70-105 Not Available [facility] [address] [place], [address], 02/25/2020 16:07:14 02/25/20 20 02/25/2020 BMP + ioniz ed calci um, serum or plasm a BUN 14 mg/dL 8-26 Not Available [facility] [address] [place], [address], 02/25/2020 16:07:14 02/25/20 20 02/25/2020 BMP + ioniz ed calci um, serum or plasm a crea 0.8 mg/dL 0.6-1. 3 Not Available [facility] [address] [place], [address], 02/25/2020 16:07:14 02/25/20 20 02/25/2020 BMP + ioniz ed calci um, serum or plasm a Na 134 mmol/ L 138-14 6 Not Available [facility] [address] [place], [address], 02/25/2020 16:07:14 02/25/20 20 02/25/2020 BMP + ioniz ed calci um, serum or plasm a K 3.9 mmol/ L 3.5-4. 9 Not Available [facility] [address] [place], [address], 02/25/2020 16:07:14 02/25/20 20 02/25/2020 BMP + ioniz ed calci um, serum or plasm a cL 99 mmol/ L 98-109 Not Available [address], [address], 02/25/2020 16:07:14 02/25/20 20 02/25/2020 BMP + ioniz ed calci um, serum or plasm a TCO2 27 mmol/ L 24-29 Not Available [address], [address], 02/25/2020 16:07:14 02/25/20 20 02/25/2020 BMP + ioniz ed calci um, serum or plasm a angap 14 mmol/ L 10-20 Not Available [address], [address], 02/25/2020 16:07:14 02/25/20 20 02/25/2020 BMP + ioniz ed calci um, serum or plasm a ica 1.15 mmol/ L 1.12-1 .32 Not Available [address], [address], 02/25/2020 16:07:14 02/25/20 20 02/25/2020 BMP + ioniz ed calci um, serum or plasm a HCT 43 %pcv 38-51 Not Available [address], [address], 02/25/2020 16:07:14 02/25/20 20 02/25/2020 BMP + ioniz ed calci um, serum or plasm a Hb 14.6 g/dL 12-17 Not Available [address], [address], 02/25/2020 16:07:14 Result Notes None recorded. Procedures Surgical History Date Name Laterality Status Provider Name and Address Organization Details Recorded Time 02/25/20 Venipuncture - completed ELIE DILL, [address], [place], [address], [place] [facility] 02/25/2020 16:09:28 02/25/20 20 IV Start Procedure - completed ELIE DILL NP [address], [place], [address], [place] [facility] 02/25/2020 16:09:06 02/15/20 20 Venipuncture - completed Melisa Rodriguez NP [address], [place], [address], [place] [facility] 02/20/2020 10:33:31 biopsy of liver completed Melisa Rodriguez NP [address], [place], [address], [place] [facility] 02/15/2020 17:41:20 Imaging Results None recorded. Procedure Notes None recorded. Medical Equipment None Reported. Allergies Allergen ID Allergen Name Allergen Category Reaction Reaction Severity Criticality Documentation Date Start Date Code Code System Note Provider Name and Address Organization Details Recorded Time 587929 Ceclor medicatio n Not available Not available Not available 02/15/2020 34955 5 RxNorm Melisa Rodriguez NP [address], [place], [address], [place] [facility] 0 17:37:02 581649 clarithro mycin medicatio n Not available Not available Not available 02/15/2020 81481 RxNorm Melisa Rodriguez NP [address], [place], [address], [place] [facility] 0 17:37:11 187883 Bactrim medicatio n Not available Not available Not available 02/15/2020 20398 9 RxNorm Melisa Rodriguez NP [address], [facility] [place], [address], [place] [facility] 0 17:37:42 119577 Substance with sulfonami de structure and antibacte rial mechanism of action (substanc e) medicatio n Not available Not available Not available 02/15/2020 35704 8003 SNOMED Melisa Rodriguez NP [address], [place], [address], [place] [facility] 0 17:38:06 [...] Pulse oximetry Body temperature Respiratory rate Systolic And Diastolic Provider Name and Address Organization Details Last Updated DateTime 0 82 /min 97 % 97 % 98.2 [degF] 18 /min 90/60 mm[Hg] Not Available [facility] 0 17:39:07 Date Recorded Oxygen saturation Oxygen saturation in Arterial blood by Pulse oximetry Body temperature Respiratory rate Heart rate Systolic And Diastolic Provider Name and Address Organization Details Last Updated DateTime 0 94 % 94 % 100.9 [degF] 18 /min 92 /min 118/64 mm[Hg] Not Available [facility] 0 15:21:27 Social History Question Answer Notes LastModified by Organizat ion Details LastModified Time Tobacco Smoking Status Current Every Day Smoker Melisa Rodriguez, GRISELDA [address] [facility], [place], [address], [place] [facility] 02/15/2020 17:35:16 Do You [...] Visiting Friends Or Family Or Going To Denominational Or Club Meetings) 1 Or 2 Times [...] Coronary Artery Disease N High Cholesterol N Cancer Y Pulmonary Embolism N Stroke N Hypertension N Asthma Y COPD N Depression Y Kidney Disease N Gynecological HistoryNo gynecological history recorded. Obstetrics History GPAL:G 0 P 0 0 0 0 Past Encounters Encounter ID Performer Location Encounter Start Date Encounter Closed Date Diagnosis/Indication Diagnosis SNOMED-CT Code Diagnosis ICD10 Code Diagnosis Note [id number] Melisa Rodriguez NP [facility] [address] [place] [address] 02/15/2020 17:29:34 02/18/2020 15:23:32 Fever 329770761 R50.9 Overview/H istory: Patient has suffered numerous [...] care of this patient according to [facility]'s infection prevention protocols. In order to obtain further informatio n and compare any laboratory results/va lues, I have accessed old patient records. This informatio n was pertinent in my medical decision making today. Suspected COVID-19 16042 4004 Z03.89 Nausea and vomiting 1693 2000 R11.2 Nausea 986037915 R11.0 [id number] ELIE DILL NP [facility] [address] [place] [address] 02/25/2020 14:50:32 02/26/2020 10:38:53 Fever 785936661 R50.9 Community acquired pneumonia 650455115 J18.9 Exposure t o communicable disease 947994470 Z20.828 Systolic murmur 46026752 R01.1 Nausea 471574922 R11.0 Health Concerns Section Related Observation LastModified by Organization Detai ls LastModified Time None Recorded Concern Status LastModified by Organization Details LastModified Time None Recorded Advance Directives Directive N: Payers Insurance Date Sequence Insurance Name Policy Number Policy Boyd Covered Member ID Boyd Member ID Guarantor Name 02/15/2020 1 *SELF PAY* Esmer Mims [id number] Esmer Mims 04/25/2020 1 [place]IC[place] [employer] Esmer Mims [id number] Esmer Mims 04/25/2020 2 [facility] (MEDICARE SUPPLEMENT) Esmer Mims [id number] Esmer Mims Notes Date Note Type Note Provider Name and Address Organization Details Recorded Time 0 text/html 44 year old alert female who is not known to [facility] and not known to this provider. Patient [...] GERD. Melisa Rodriguez NP [address], [place], [address], [place] [facility] 06/04/2020 09:07:28 0 text/html [...] (negative). ELIE DILL NP [address], [place], [address], [place] [facility] 02/25/2020 17:34:57 OBGyn Episode No OBEpisode recorded.
[2024-09-27 14:41] VITALS: BP 130/80; PULSE 62; O2SAT 98; BMI 25.0
--- NOTE | 2024-09-27 14:41 | A.OFFVIS_ITS ---
Vital Signs 09/27/24 14:41 Height 5 ft 1 in Weight 132 lb 7.965 oz BMI 25.0 BP 130/80 Blood Pressure Location Lt brachial Position Sitting Pulse 62 Pulse Source Pulse Oximeter Pulse Oximetry (%) 98 Oxygen Delivery Method Room Air Intake Visit Reasons: 3 Months Allergies adhesive tape Allergy (Mild, Verified 09/27/24 14:44) Rash cefaclor (From CECLOR) Allergy (Unknown, Verified 09/27/24 14:44) HIVES erythromycin base (ERYTHROMYCIN BASE) Allergy (Unknown, Verified 09/27/24 14:44) UNK Sulfa (Sulfonamide Antibiotics) (SULFA (SULFONAMIDE ANTIBIOTICS)) Allergy (Unknown, Verified 09/27/24 14:44) HIVES z pack Allergy (Mild, Uncoded 03/29/24 15:05) hives HPI HPI 3 Months: Details: She is having surgery next week for repair of right shoulder rotator cuff tendons, right glenohumeral joint arthritis and clean up under her clavicle per patient. Both hands are numb. After cortisone injection to treat left 4th and 5th trigger finger she had reduced pain with less triggering. She continues to have pain in her left palm. [facility] Medical History Sacral foraminal stenosis Tear of tendon of rotator cuff Rotator cuff tear, right Physical Exam Vital Signs: Last Vital Signs Pulse 62 09/27/24 14:41 BP 130/80 09/27/24 14:41 Pulse Ox 98 09/27/24 14:41 Oxygen Delivery Method Room Air 09/27/24 14:41 BMI result Body Mass Index 25.0 Const Other: General: Comfortable Skin: No lesions seen MSK: Tender to palpate palmar aspect of 4th and 5th MCP with without nodule palpated. No triggering observed. No tenderness of wrists. No synovitis. Patient is able to steeping press tender her hands. Office Procedures AMB Joint Injection/Aspiration Joint Injection/Aspiration Details: Bilateral carpal tunnel Prep: site was prepped using aseptic technique Injected into each site: 20 mg of, Kenalog, with 0.5 mL of and 1% plain lidocaine Procedure: Informed verbal consent was obtained. The patient tolerated the procedure well. Postprocedure protocol was discussed with patient. Coding Additional procedure code (CPT) needed (28525 carpal tunnel injection bilateral) AMB Joint Injection/Aspiration Coding Procedure code (CPT) selection complete ( bilateral carpal tunnel) AMB Tendon Injection Tendon Injection All charges added?: Additional procedure code (CPT) needed ( Bilateral carpal tunnel injection) AMB Tendon Injection Tendon Injection All charges added?: Additional procedure code (CPT) needed ( bilateral carpal tunnel injection) Office Meds lidocaine (PF) 10 mg/mL (1 %) injection solution Performing Provider: Christoph Odell MD Performing Location: [facility] Administered by: Christoph Odell MD on 09/27/24 21:15 Dose Route Admin Location Dispensed Lot Number Expiration Date [facility] [employer] Tom[employer] Scanner Operator 5 mg Infiltration intra articular 2 mL [id number] 08/25/26 04206-690- 04 [employer] Total Dispensed Waste 2 mL 75 % Kenalog 40 mg/mL suspension for injection Performing Provider: Christoph Odell MD Performing Location: [facility] Administered by: Christoph Odell MD on 09/27/24 21:15 Dose Route Admin Location Dispensed Lot Number Expiration Date [facility] [employer] Scanner Operator 20 mg Tendon Sheath Inj. 1 mL [id number] [facility] Total Dispensed Waste 1 mL 50 % lidocaine (PF) 10 mg/mL (1 %) injection solution Performing Provider: Christoph Odell MD Performing Location: [facility] Administered by: Christoph Odell MD on 09/27/24 21:23 Dose Route Admin Location Dispensed Lot Number Expiration Date [facility] [employer] Scanner Operator 5 mg Infiltration 2 mL [id number] 08/25/26 79202-674-53 [employer] Total Dispensed Waste 2 mL 75 % Kenalog 40 mg/mL suspension for injection Performing Provider: Christoph Odell MD Performing Location: [facility] Administered by: Christoph Odell MD on 09/27/24 21:23 Dose Route Admin Location Dispensed Lot Number Expiration Date [facility] [employer] Scanner Operator 20 mg Tendon Sheath Inj. 1 mL [id number] [employer] Total Dispensed Waste 1 mL 50 % Kenalog 40 mg/mL suspension for injection Performing Provider: Christoph Odell MD Performing Location: [facility] Administered by: Jose Rafael Le RN on 09/27/24 15:26 Dose Route Admin Location Dispensed Lot Number Expiration Date [facility] [employer] Scanner Operator 20 mg Tendon Sheath Inj. 1 mL [id number] 10/25/26 96337-061-1 1 [employer] Total Dispensed Waste 1 mL 50 % Kenalog 40 mg/mL suspension for injection Performing Provider: Christoph Odell MD Performing Location: [facility] Administered by: Jose Rafael Le RN on 09/27/24 15:26 Dose Route Admin Location Dispensed Lot Number Expiration Date [facility] Computed Tom[employer] Scanner Operator 20 mg Tendon Sheath Inj. 1 mL [id number] 10/25/26 91151-718-6 1 [employer] Total Dispensed Waste 1 mL 50 % Assessment & Plan Assessment & Plan (1) Carpal tunnel syndrome: Comment: Bilateral. Uncontrolled pain and numbness in hands. 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 Code(s): Z79.1 - long-term (current) use of non-steroidal anti-inflammatories (NSAID) Category: Medical Plan: Labs for drug monitoring on chronic NSAID ordered. She is planning right shoulder surgery next week. She will then switch meloxicam to naproxen per surgery recommendations. When surgical pain improves, she will switch back to meloxicam 15 mg daily. Return to clinic in 3 months (3) Tenosynovitis of finger: Comment: Triggering of left 4th and 5th finger has reduced in frequency after cortisone injection from last visit. She continues to have constant pain in palmar aspect of 4th and 5th MCP with reduced intensity after cortisone injections. She also has localized pain to her central palm of unclear etiology. X-ray left hand June 2024 was normal. EMG of left upper extremity revealed known median neuropathy without any new pathology that can account for her symptomatology. Due to chronic polyarthralgias in bilateral hands I will further workup with labs and MRI L hand with and without contrast to evaluate for tendon pathology vs. subclinical inflammatory arthritis contributing to her pain after shoulder surgery. Of note, MRI right hand with and without contrast 05/2024 was normal. Failed occupational therapy, which brought on recurrent triggering. History of low titer DEEPAK 1:80. Code(s): M65.949 - Unspecified synovitis and tenosynovitis, unspecified hand Category: Medical Plan: MRI left hand with and without contrast to evaluate for tendon tear and subclinical inflammatory arthritis contributing to hand pain to be scheduled in 2 months after shoulder surgery RF, anti CCP antibody, inflammatory markers ordered Return to clinic in 3 months Orders: Orders Alanine Aminotransferase 09/27/24 Z79.1 - long-term (current) use of non- steroidal anti-inflammatories (NSAID) Creatinine 09/27/24 Z79.1 - parts counterman (current) use of non-steroidal anti- inflammatories (NSAID) AMB Tendon Injection 09/27/24 G56.03 - Carpal tunnel syndrome, bilateral upper limbs AMB Joint Injection/Aspiration 09/27/24 G56.03 - Carpal tunnel syndrome, bilateral upper limbs Erythrocyte Sedimentation Rate 2 Months M79.641 - Pain in right hand, M79.642 - Pain in left hand, Z79.899 - Other alf (current) drug therapy C Reactive Protein 2 Months M79.641 - Pain in right hand, M79.642 - Pain in left hand, Z79.899 - Other terminal gauger (current) drug therapy Aspartate Amino Transferase 09/27/24 Z79.1 - long-term (current) use of non- steroidal anti-inflammatories (NSAID) AMB Tendon Injection 09/27/24 G56.03 - Carpal tunnel syndrome, bilateral upper limbs MR hand LT wo/w con 2 Months M65.949 - Unspecified synovitis and tenosynovitis, unspecified hand, M79.642 - Pain in left hand, R29.898 - Other symptoms and signs involving the musculoskeletal system AMB Joint Injection/Aspiration 09/27/24 G56.03 - Carpal tunnel syndrome, bilateral upper limbs Cyclic Citrullinated Peptide 2 Months M79.641 - Pain in right hand, M79.642 - Pain in left hand Rheumatoid Factor 2 Months M79.641 - Pain in right hand, M79.642 - Pain in left hand Medications: Refilled meloxicam Replace previous prescriptions. Fill this rx with one refill. 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
== END 2024-09-27 15:38 | disposition home or self-care (01) ==
LOC: HO.RHES 14:26
PROVIDERS: PCP Internal Medicine; Visit Provider Internal Medicine Rheumatology
DX: G56.03 Carpal tunnel syndrome, bilateral upper limbs (principal); Z79.1 Long term (current) use of non-steroidal anti-inflammatories (NSAID); M65.949 Unspecified synovitis and tenosynovitis, unspecified hand
CPT/HCPCS: 99214

== ENCOUNTER 2025-01-17 14:52 | Outpatient (AMB) | payer MEDICARE, OTHER, MEDICAID, SELFPAY ==
[2025-01-17 14:54] VITALS: BP 118/80; PULSE 75; O2SAT 95; BMI 24.7
--- NOTE | 2025-01-17 14:54 | MHC.OFFVIS ---
Vital Signs 01/17/25 14:54 Height 5 ft 1 in Weight 131 lb BMI 24.7 BP 118/80 Blood Pressure Location Lt brachial Position Sitting Pulse 75 Pulse Source Pulse Oximeter Pulse Oximetry (%) 95 Intake Visit Reasons: cortisone inj for BI carpal tunnel/ MD approved Intake Note: Patients presents today for bi/carpel tunnel inj Accompanied by: Self / Same As Patient Allergies adhesive tape Allergy (Mild, Verified 09/27/24 14:44) Rash cefaclor (From CECLOR) Allergy (Unknown, Verified 09/27/24 14:44) HIVES erythromycin base (ERYTHROMYCIN BASE) Allergy (Unknown, Verified 09/27/24 14:44) UNK Sulfa (Sulfonamide Antibiotics) (SULFA (SULFONAMIDE ANTIBIOTICS)) Allergy (Unknown, Verified 09/27/24 14:44) HIVES z pack Allergy (Mild, Uncoded 03/29/24 15:05) hives HPI HPI cortisone inj for BI carpal tunnel/ MD approved: Details: Numbness in hands returned a few weeks ago. She is recovering from right shoulder surgery. She is participating in physical therapy. [facility] Medical History (Updated 01/18/25 @ 08:29 by Christoph Odell MD) Sacral foraminal stenosis Tear of tendon of rotator cuff Rotator cuff tear, right Surgical History (Updated 01/17/25 @ 14:58 by Yanna Martínez CMA) Hx of shoulder surgery Physical Exam Vital Signs: Last Vital Signs Pulse 75 01/17/25 14:54 BP 118/80 01/17/25 14:54 Pulse Ox 95 01/17/25 14:54 BMI result Body Mass Index 24.7 Const Other: General: Comfortable Skin: No lesions seen MSK: No tenderness of wrists. No synovitis. Patient is able to rug receiving clerk her hands. Office Procedures AMB Joint Injection/Aspiration Joint Injection/Aspiration Details: Bilateral carpal tunnel Prep: site was prepped using aseptic technique Injected into each site: 20 mg of, Kenalog, with 0.5 mL of and 1% plain lidocaine Procedure: Informed verbal consent was obtained. The patient tolerated the procedure well. Postprocedure protocol was discussed with patient. Coding Additional procedure code (CPT) needed (CPT 04140 bilateral procedure) AMB Joint Injection/Aspiration Coding Additional procedure code (CPT) needed (CPT code 21715 bilateral procedure) Office Meds lidocaine (PF) 10 mg/mL (1 %) injection solution Performing Provider: Christoph Odell MD Performing Location: [facility] Administered by: Diamante Pedroza RN on 01/17/25 15:41 Dose Route Admin Location Dispensed Lot Number Expiration Date [place] [facility] 0.5 mL Infiltration 2 mL [id number] 08/25/26 28631-383-52 [employer] Total Dispensed Waste 2 mL 75 % Kenalog 40 mg/mL suspension for injection Performing Provider: Christoph Odell MD Performing Location: [facility] Administered by: Diamante Pedroza RN on 01/17/25 15:41 Dose Route Admin Location Dispensed Lot Number Expiration Date [facility] Medical Specialist 20 mg Tendon Sheath Inj. 1 mL [id number] 09/24/26 [address]-8 [employer] Total Dispensed Waste 1 mL 50 % lidocaine (PF) 10 mg/mL (1 %) injection solution Performing Provider: Christoph Odell MD Performing Location: [facility] Administered by: Diamante Pedroza RN on 01/17/25 15:41 Dose Route Admin Location Dispensed Lot Number Expiration Date [place] [facility] 0.5 mL Infiltration 2 mL [id number] 08/25/26 41970-259-75 [employer] Total Dispensed Waste 2 mL 75 % Kenalog 40 mg/mL suspension for injection Performing Provider: Christoph Odell MD Performing Location: [facility] [place] [facility] Administered by: Diamante Pedroza RN on 01/17/25 15:41 Dose Route Admin Location Dispensed Lot Number Expiration Date [facility] Medical Specialist 20 mg Tendon Sheath Inj. 1 mL [id number] 09/24/26 [address]-7 [employer] Total Dispensed Waste 1 mL 50 % Assessment & Plan Assessment & Plan (1) Carpal tunnel syndrome: Comment: Bilateral. Recurrent. Uncontrolled pain and numbness in hands. She is receiving 2-3 months benefit with cortisone injections. We discussed next steps with considering surgery, which patient agrees to proceed. Code(s): G56.00 - Carpal tunnel syndrome, unspecified upper limb Category: Medical Qualifiers: Laterality: bilateral Qualified Code(s): G56.03 - Carpal tunnel syndrome, bilateral upper limbs Plan: Patient received bilateral cortisone injections to both wrists to treat carpal tunnel syndrome Hand surgery referral to [facility] per patient's request Return to clinic in 3 months (2) [facility] (current) use of non-steroidal anti-inflammatories (nsaid): Comment: On naproxen prescribed by orthopedic surgery after shoulder surgery. I have reviewed labs from early December 2024, which reveal normal kidney function and liver function. She has held meloxicam. Code(s): Z79.1 - manager intermediate (current) use of non-steroidal anti-inflammatories (NSAID) Category: Medical Plan: Labs for drug monitoring on chronic NSAID up-to-date She will continue naproxen prescribed by orthopedic surgery. She may switch to meloxicam when naproxen as discontinued by orthopedic surgery Return to clinic in 3 months (3) Tenosynovitis of finger: Comment: Triggering of left 4th and 5th finger has reduced in frequency after cortisone injections in the past but it is still persistent. She continues to have constant pain in palmar aspect of 4th and 5th MCP with reduced intensity after cortisone injections. She also has localized pain to her central palm of unclear etiology. X-ray left hand June 2024 was normal. EMG of left upper extremity revealed known median neuropathy without any new pathology that can account for her symptomatology. Due to chronic polyarthralgias in bilateral hands I will further workup with MRI L hand with and without contrast to evaluate for tendon pathology vs. subclinical inflammatory arthritis contributing to her MCP pain. Of note, MRI right hand with and without contrast 05/2024 was normal. Failed occupational therapy, which brought on recurrent triggering. Failed cortisone injections for trigger finger. History of low titer DEEPAK 1:80. Code(s): M65.949 - Unspecified synovitis and tenosynovitis, unspecified hand Category: Medical Plan: MRI left hand with and without contrast to evaluate for tendon tear and subclinical inflammatory arthritis contributing to hand pain to be scheduled next month RF and CCP ab ordered last visit Return to clinic in 3 months Orders: Orders AMB Joint Injection/Aspiration 01/17/25 G56.03 - Carpal tunnel syndrome, bilateral upper limbs AMB Joint Injection/Aspiration 01/17/25 G56.03 - Carpal tunnel syndrome, bilateral upper limbs Referrals Hand Surgery Referral G56.03 - Carpal tunnel syndrome, bilateral upper limbs Coding Level of Care Code Est Pt Level 3 (42069) Complex EM visit Add On G2211 Diagnoses Bilateral carpal tunnel syndrome G56.03 Laterality: bilateral manager intermediate (current) use of non-steroidal anti-inflammatories (nsaid) Z79.1 Tenosynovitis of finger M65.945
--- OUTSIDE RECORDS SUMMARY | 2025-01-17 18:43 | XMS_ITS | Clinical Summary ---
Author Organization [facility] Address [address] [place] [address] [place] [address] Phone Care Team Providers Care Food And Drug Inspector Name Role Phone George Dillon MD Primary Care Provider [phone] Allergies Active Allergy Reactions Criticality Noted Date Comments Cefaclor 05/10/2017 Codeine 05/10/2017 Erythromycin 05/10/2017 Sulfa (Sulfonamide Antibiotics) 04/28 Adhesive Rash Low 09/10/2023 Medications ESCITALOPRAM OXALATE (LEXAPRO ORAL) Active TRAZODONE HCL (TRAZODONE ORAL) Act carmen CLONAZEPAM ORAL Acti ve ibuprofen (ADVIL,MOTRIN) 600 MG tablet Take 1 tablet (600 mg total) by mouth every 6 (six) hours as needed for pain (specific location in comments). 15 tablet 09/10/19 24 Active buprenorphine (BUTRANS) 7.5 mcg/hour PTWK PLEASE SEE ATTACHED FOR DETAILED DIRECTIONS Active meloxicam (MOBIC) 15 MG tablet Take 15 mg by mouth daily. with food Active magnesium oxide 400 mg magnesium Tab Take 1 tablet by mouth daily. Active ondansetron (ZOFRAN-ODT) 4 MG disintegrating tablet DISSOLVE 1 TABLET IN MOUTH 3 TIMES A DAY NEEDED FOR NAUSEA/VOMITING FOR 10 DAYS Active oxyCODONE-acetamin ophen (PERCOCET) 10-325 mg per tablet TAKE 1 TABLET BY MOUTH EVERY 6 HOURS NEEDED FOR BREAKTHROUGH PAIN Active pantoprazole (PROTONIX) 20 MG tablet Take 20 mg by mouth 2 (two) times a day. Active LYRICA 225 mg capsule Take 1 capsule by mouth 2 (two) times a day. Active VITAMIN B COMPLEX ORAL Take 1 tablet by mouth daily. Active naproxen (NAPROSYN) 500 MG tablet TAKE 1 TABLET TWICE A DAY BY ORAL ROUTE WITH MEAL(S) FOR 30 DAYS. 10/15/19 Active buprenorphine (BUTRANS) 10 mcg/hour PTWK transdermal patch 0 Refills, Maintenance, 09/17/24 12:11:00 PM EDT, Partial fill upon patient request if the prescription is for a schedule II opioid drug. 09/18/19 Active topiramate (TOPAMAX) 50 MG tablet Take 1 tablet (50 mg total) by mouth 2 (two) times a day. 60 tablet 3 11/07/19 Active Encounters Date Type Department Care Team Description 11/06/2024 3:00 PM EDT Office Visit [facility], Department of Neurology [address] [place] [address] Kinjal Schofield MD BANK OFFICER demyelinating disease (Primary Dx); Intractable migraine without aura and with status migrainosus; Migraine without aura and without status migrainosus, not intractable; Migraine without aura and with status migrainosus, not intractable; Intractable migraine without aura and without status migrainosus; Tension headache 11/06/2024 Ancillary Orders [facility] [address] [place] [id number] Kinjal Schofield MD 11/06/2024 Ancillary Orders [facility] [address] [place] [address] Kinjal Schofield MD from Last 3 Months Social History Tobacco Use Types Packs/Day Years Used Date Smoking Tobacco: Every Day Cigarettes 0.3 12 Started: 2011 Smokeless Tobacco: Never Tobacco Cessation:Ready to Q uit: Not Asked; Counseling Given: Not Answered Alcohol Use Standard Drinks/Week Comments No 0 (1 standard drink = 0.6 oz pur e alcohol) Education Answer Date Recorded Are you interested in more education? Not on juan a e 07/23/2022 Are you concerned about learning? Not on file 07/23/2022 No 07/23/2022 No 07/23/2022 Digital Access Answer Date Recorded No 08/21/2022 No 08/21/2022 Reliable internet access at home? Not on file 08/21/2022 Device with a working camera? Not on file Intimate Partner Violence Answer Date R ecorded Are you denied basic needs s uch as food, clothing, or medical care? No 11/06/2024 In the past 12 months have y ou been in a relationship with a person who hurts, threatens, or tries to control you? No 11/06/2024 Are you denied basic needs s uch as food, clothing, or medical care? No 11/06/2024 In the past 12 months have y ou been in a relationship with a person who hurts, threatens, or tries to control you? No 11/06/2024 Comments No Sex and Gender Information Value Date Recorded Sex Assigned at Female 05/10/2017 12:03 PM EST Legal Sex Female 11:43 AM EST Gender Identity Female 05/10/2017 12:03 PM EST Sexual Orientation Straight 05/10/2017 12 :03 PM EST Last Filed Vital Signs Vital Sign Reading Time Taken Comments Blood Pressure 99/63 11/06/2024 2:36 PM EDT Pulse 65 11/06/2024 2:36 PM EDT Temperature 37 C (98.6 F) 11/06/2024 2:36 PM EDT Respiratory Rate 16 11/06/2024 2:36 PM EDT Oxygen Saturation 97% 11/06/2024 2:36 PM EDT Inhaled Oxygen Concentration - - Weight 60.3 kg (133 lb) 11/06/2024 2:36 PM EDT Height 157.5 cm (5' 2 ) 09/10/2023 10:03 AM EDT Body Mass Index 24.33 09/10/2023 10:03 AM EDT Plan of Treatment Upcoming Encounters Date Type Department Care Team (Late st Contact Info) Description 11/06/2024 Procedure Pass [facility] [employer] [address] [address] 03/11/2025 1:45 PM EST Appointment [address] [address] Kinjal Schofield MD [address] [place] [address] [email or web address] 05/21/2025 2:30 PM EST Office Visit [facility], Department of Neurology [address] [place] [address] Kinjal Schofield MD [address] [place] [address] [email or web address] Health Maintenance Due Date Last Done Comments LIPID PANEL 1975 HEPATITIS C SCREENING 1993 HIV ONE-TIME SCREENING (18-65 YEARS) 1993 PAP SMEAR 1996 MAMMOGRAM 2015 COLOGUARD 2020 COLONOSCOPY 2020 COLORECTAL CANCER SCREENING 2020 FIT TEST 2020 FOBT 2020 SIGMOIDOSCOPY 2020 VIRTUAL COLONOSCOPY 2020 INFLUENZA VACCINE (#1) 2024 , 01/06/2023, 01/01/2021 COVID-19 VACCINE ( season) 2024 12/16/2022, 01/07/2022, 02/27/2021, Additional history exists DEPRESSION SCREENING 11/04/2025 11/04/2024 SMOKING Hx and SMOKELESS TOBACCO SCREENING 11/06/2025 11/06/2024 Adult Td,Tdap Booster 11/25/2029 11/26/2019 PNEUMOCOCCAL VACCINES (0-49 years) Completed 01/06/2023, 07/06/2021 HEPATITIS A VACCINES Aged Out No long er eligible based on patient's age to complete this topic HIB VACCINES Aged Out No longer eligi ble based on patient's age to complete this topic MENINGOCOCCAL VACCINES (ACWY) Aged Out No longer eligible based on patient's age to complete this topic MENINGOCOCCAL VACCINES (B) Aged Out N o longer eligible based on patient's age to complete this topic Medical Devices Not on file Insurance MEDICARE PART A & B [facility] MEDIC[facility] ENHANCE SUPPLEMENT [facility] MEDICARE PART A & B [facility] MEDICARE ENHANCE SUPPLEMENT [facility] MEDICARE PART A & B [facility]IC[facility] [place] [facility] [place]: [address] [place] [address] [facility] [address] [place] [address] MEDICARE PART A & B [facility] MEDIC[facility] [place] [facility] [place]: [address] [place] [address] [facility] [address] [place] [phone] MEDICARE PART A & B [facility] MEDIC[facility] [facility] [place]: [address] [place] [address] [facility] [address] [place] [address] MEDICARE PART A & B [facility] MEDICARE [place] [facility] [id number] [place] [address] [facility] MEDICARE PART A & B [facility] MEDICARE ENHANCE SUPPLEMENT [facility] MEDICARE PART A & B [facility] MEDIC[facility] ENHANCE [facility]PP[place] [facility] Address: [address] [place] [address] [facility] MEDICARE PART A & B [facility] MEDIC[employer] ENHANCE SUPPLEMENT [facility] Care Teams Food And Drug Inspector Relationship Specialty Start Date End Date George Dillon MD [address] [place] [phone] PCP - General Internal Medicine 05/10/17 Additional Source Comments The information contained in this document represents components of the legal health record. It is not the complete legal health record.[facility]
--- OUTSIDE RECORDS SUMMARY | 2025-01-17 18:43 | XMS_ITS | Encounter Summary ---
Author Organization [facility] Address [address] [place] [address] [place] [phone] Phone Care Team Providers Care Director Of Scientific Research Name Role Phone George Dillon MD Primary Care Provider [phone] Reason for Referral * Physical Therapy (Routine) - Closed Specialty Diagnoses / Procedures Referred By Contac t Referred To Contact Physical Therapy Diagnoses Encounter for rehabilitation System, Provider Not In, [facility] [id number] [place] [address] Phone: tel: Referral ID Status Reason Start Date Expiration Date Visits Re quested Visits Authorized [id number] Closed 11/01/2017 11/01/2018 60 60 Encounter Details Date Type Department Care Team (Latest Contact Info) Description 11/01/2017 Transcribe Orders [facility] [address] [place] [address] Kevin Rice, DO [address] [place] [phone] Encounter for rehabilitation (Primary Dx) Social History Tobacco Use Types Packs/Day Years Used Date Smoking Tobacco: Every Day Cigarettes Smokeless Tobacco: Never Alcohol Use Standard Drinks/Week Comments No 0 (1 standard drink = 0.6 oz pur e alcohol) Comments Unknown Sex and Gender Information Value Date Recorded Sex Assigned at Female 05/10/2017 12:03 PM EST Legal Sex Female 11:43 AM EST Gender Identity Female 05/10/2017 12:03 PM EST Sexual Orientation Straight 05/10/2017 12 :03 PM EST documented as of this encounter Plan of Treatment Upcoming Encounters Date Type Department Care Team (Late st Contact Info) Description 11/06/2024 Procedure Pass [facility] [place] [address] [place] [address] 03/11/2025 1:45 PM EST Appointment [address] [address] Kinjal Schofield MD [address] [place] [address] [email or web address] 05/21/2025 2:30 PM EST Office Visit [facility], Department of Neurology [address] [place] [address] Kinjal Schofield MD [address] [place] [address] [email or web address] Scheduled Referrals Name Type Priority Associated Diagnoses Orde r Schedule Ambulatory referral to [facility] Physical Therapy Outpatient Referral Routine Encounter for rehabilitation Ordered: 11/01/2017 documented as of this encounter Visit Diagnoses Diagnosis Encounter for rehabilitation- Primary documented in this encounter Care Teams Director Of Scientific Research Relationship Specialty Start Date End Date George Dillon MD [address] [place] [phone] PCP - General Internal Medicine 05/10/17 documented as of this encounter Additional Source Comments The information contained in this document represents components of the legal health record. It is not the complete legal health record.[facility]
--- OUTSIDE RECORDS SUMMARY | 2025-01-17 18:43 | XMS_ITS | Data Portability ---
Author Organization [place] [facility] Address [address] [place] [address] Care Team Providers Care Pan Pusher Name Role Phone REGINA SALGADO Primary Care Provider TERRI AVILA OTHER KAMRON CABALLERO OTHER [facility] ENDOCRINOLOGY AND DIABETES SCHEDULING O THER [...] care of this patient according to [facility]'s infection prevention protocols. In order to obtain [...] care of this patient according to [facility]'s infection prevention protocols. This patient is new [...] guage in left AC by [facility] under my supervision for IV fluids for rehydration: 500 ml of 0.9% sodium chloride over 40 minutes. patient tolerated procedure well. Discussed with patient her need to follow up with her PCP and jack tamp operator tomorrow to set up appointments; PCP [...] pertinent in my medical decision making today. [email or web address] Not available 02/25/2020 17:34:46 Plan of Treatment Reminders Order Date Submit Date Provider Last Modified By Organization Details Last Modified Time Details Appointments None recorded. Lab pro BNP (pro B-type natriureti c peptide), serum or plasma 2019 DARYL [facility] (Centralized Electronic Ordering - All Locations), Patient Can Go To The Location Of Their Choice, [id number] 0 08:58:45 BMP + ionized calcium, serum or plasma 2019 [facility], [address] [place], [address], 0 16:07:14 CG4+ iStat 2019 DARYL [facility] (Centralized Electronic Ordering - All Locations), Patient Can Go To The Location Of Their Choice, [id number] 1 20:05:10 urinalysis , dipstick 2019 [facility] [place], [address] [place], [address], 0 10:53:18 culture, urine 2019 DARYL [facility] (Centralized Electronic Ordering - All Locations), Patient Can Go To The Location Of Their Choice, [id number] 0 07:20:02 BMP, serum or plasma 2019 DARYL [facility] (Centralized Electronic Ordering - All Locations), Patient Can Go To The Location Of Their Choice, [address] 0 08:58:30 CBC w/ auto diff 2019 DARYL [facility] (Centralized Electronic Ordering - All Locations), Patient Can Go To The Location Of Their Choice, [address] 0 08:57:31 SARS CoV 2 RNA (COVID-19) , QL, special projects coordinator-PCR, respirator y specimen 2019 DARYL [facility] (Centralized Electronic Ordering - All Locations), Patient Can Go To The Location Of Their Choice, [address] 0 14:29:28 rapid flu (A+B) 2019 [facility], [address] [place], [address], 0 18:05:57 BMP + ionized calcium, serum or plasma 2019 DARYL [facility] (Centralized Electronic Ordering - All Locations), Patient Can Go To The Location Of Their Choice, [address] 0 18:12:14 SARS CoV 2 RNA (COVID-19) , QL, special projects coordinator-PCR, respirator y specimen 2019 [email or web address] [facility] (Centralized Electronic Ordering - All Locations), Patient Can Go To The Location Of Their Choice, [address] 0 17:52:54 Referral None recorded. Procedures None recorded. Surgeries None recorded. Imaging XR, chest, 2 view - Ordered by [facility] 2019 [facility] ([facility]), [address] [facility], [place], [address], 0 00:53:05 Medication Orders Zofran 4 mg tablet 2019 INTERFACE [id number], [address] [place], [address], 0 16:30:45 sodium chloride 0.9 % intravenou s solution 2019 Not available 1 20:03:36 Zofran 4 mg tablet 2019 [email or web address] [id number], [address] [place], [address], 0 16:15:04 Zofran ODT 4 mg disintegra ting tablet 2019 020 Not available 1 19:36:41 Patient TargetsNo targets recorded. Patient Instructions Encounter Date Encounter Id Patient Instructions Last Modified By Organization Details Last Modified Time 02/15/2020 [id number] You were seen to day for evaluation [...] .Thank you [facility] today. We cannot always find [...] in your condition between 8am-10pm, [facility] at [phone] to help navigate your care. Viral Illness [...] in your condition between 8am-10pm, please call [facility] at [phone] to help navigate your care. Not available 02/15/2020 18:18:03 02/25/2020 [id number] [facility] came to your home today for you complaint of persistant (>10 days) fever, malaise, nausea and body aches. Your sodium was boarderline low we started an IV gave you 500ml of fluid for rehydration. We have performed a Urine Dipstick which was normal, further investigation of your urine will take place at [facility] reference lab as well, Complete blood count, basic metabolic panel, pro-BNP to look at your heart, SARS Cov-2 nasal swab and chest x-ray for adverse lung sounds in your right lower lobe. [facility] will call tomorrow to set up a time to come to your home to perfom the X-ray, You will call your PCP and Bellman Captain tomorrow to set up appointments. We will call you with you lab results in a few days. Do not hesitate to seek emergency medical treatment if you symptoms become worse to include, changes in your mental status, confusion, passing out (symcope), worse fever, chills, shaking (rigors). Thank you for your visit with [facility] today. We cannot always find the exact [...] in your condition between 8am-10pm, please call [facility] at [phone] to help navigate your care. Viral Illness [...] condition between 8am-10pm, please call [facility] at [phone] to help navigate your care. [email or web address] Not available 02/25/2020 16:43:06 Reason for Referral None Reported. Results Created Date Observation Date Name Description Value Unit Range Abnormal Flag Note LastModifiedBy Organization Detail LastModifiedTime 02/15/2002/15/2020 rapid flu (A+B) Flu A negati ve Not Available [facility] [address] [place], [address], 02/15/2020 17:45:27 02/15/2002/15/2020 rapid flu (A+B) Flu B negati ve Not Available [facility] [address] [place], [address], 02/15/2020 17:45:27 02/15/20 20 02/15/2020 rapid flu (A+B) Control Visual ized / Valid Not Available [facility] [address] [place], [address], 02/15/2020 17:45:27 02/15/20 20 02/15/2020 BMP + ioniz ed calci um, serum or plasm a glu 146 mg/dL 70-105 Not Available [address], [address], 02/15/2020 18:12:14 02/15/20 20 02/15/2020 BMP + ioniz ed calci um, serum or plasm a BUN 18 mg/dL 8-26 Not Available [address], [address], 02/15/2020 18:12:14 02/15/20 20 02/15/2020 BMP + ioniz ed calci um, serum or plasm a crea 1.0 mg/dL 0.6-1. 3 Not Available [address], [address], 02/15/2020 18:12:14 02/15/20 20 02/15/2020 BMP + ioniz ed calci um, serum or plasm a Na 133 mmol/ L 138-14 6 Not Available [address], [address], 02/15/2020 18:12:14 02/15/20 20 02/15/2020 BMP + ioniz ed calci um, serum or plasm a K 3.5 mmol/ L 3.5-4. 9 Not Available [address], [address], 02/15/2020 18:12:14 02/15/20 20 02/15/2020 BMP + ioniz ed calci um, serum or plasm a cL 98 mmol/ L 98-109 Not Available [address], [address], 02/15/2020 18:12:14 02/15/20 20 02/15/2020 BMP + ioniz ed calci um, serum or plasm a TCO2 25 mmol/ L 24-29 Not Available [address], [address], 02/15/2020 18:12:14 02/15/20 20 02/15/2020 BMP + ioniz ed calci um, serum or plasm a angap 15 mmol/ L 10-20 Not Available [address], [address], 02/15/2020 18:12:14 02/15/20 20 02/15/2020 BMP + ioniz ed calci um, serum or plasm a ica 1.19 mmol/ L 1.12-1 .32 Not Available [address], [address], 02/15/2020 18:12:14 02/15/20 20 02/15/2020 BMP + ioniz ed calci um, serum or plasm a HCT 46 %pcv 38-51 Not Available [address], [address], 02/15/2020 18:12:14 02/15/20 20 02/15/2020 BMP + ioniz ed calci um, serum or plasm a Hb 15.6 g/dL 12-17 Not Available [address], [address], 02/15/2020 18:12:14 02/25/20 20 02/25/2020 CBC w/ [...] Go To The Location Of Their Choice, [id number] 02/25/2020 18:29:29 02/25/20 20 02/25/2020 CBC w/ auto diff abs. NRBC 0.0 K/mm3 Not Available [facility] (Centralized Electronic Ordering - All Locations) Patient Can Go To The Location Of Their Choice, [address] 02/25/2020 18:29:29 02/25/2002/25/2020 CBC w/ auto diff [...] Go To The Location Of Their Choice, [address] 02/25/2020 18:29:29 02/25/20 20 02/25/2020 CBC w/ [...] Go To The Location Of Their Choice, [address] 02/25/2020 19:04:50 02/25/2002/26/2020 SARS CoV 2 RNA (COVI D-19) , QL, special projects coordinator-P CR, respi rator y speci men covid-19 PCR overall result (neg) normal NEGAT NICKOLAS 2019- novel Coron aviru s (2018nCoV ) not detec sadie by real- time RT-PC R. Note: If clini karen suspi cion for COVID -19 is high, tiesha nue to maint ain preca ution s and consi corky repea t testi ng. Resul t repor sadie to [place] [facility]. To preve nt error s in diagn [...] perfo rmed by real time PCR utili [facility] SARS- CoV-2 test. Not Available [facility] (Centralized Electronic Ordering - All Locations) Patient Can Go To The Location Of Their Choice, [id number] 02/26/2020 11:23:53 02/25/2002/25/2020 cultu re, urine specimen description URINE CLEAN CATCH/ MIDSTR EAM Not Available [facility] (Centralized Electronic Ordering - All Locations) Patient Can Go To The Location Of Their Choice, [address] 02/27/2020 07:35:55 02/25/2002/25/2020 cultu re, urine special requests NONE Not Available [facility] (Centralized Electronic Ordering - All Locations) Patient Can Go To The Location Of Their Choice, [id number] 02/27/2020 07:35:55 02/25/2002/27/2020 cultu re, urine culture NO GROWTH Not Available [facility] (Centralized Electronic Ordering - All Locations) Patient Can Go To The Location Of Their Choice, [address] 02/27/2020 07:35:55 02/25/2002/27/2020 cultu re, urine report status FINAL 2019 Not Available [facility] (Centralized Electronic Ordering - All Locations) Patient Can Go To The Location Of Their Choice, [address] 02/27/2020 07:35:55 02/25/2002/25/2020 BMP + ioniz ed calci um, serum or plasm a glu 107 mg/dL 70-105 Not Available [facility] [address] [place], [address], 02/25/2020 16:07:14 02/25/20 20 02/25/2020 BMP + ioniz ed calci um, serum or plasm a BUN 14 mg/dL 8-26 Not Available [facility] [address] [place], [address], 02/25/2020 16:07:14 02/25/20 20 02/25/2020 BMP + ioniz ed calci um, serum or plasm a crea 0.8 mg/dL 0.6-1. 3 Not Available [facility] [address] [place], [address], 02/25/2020 16:07:14 02/25/20 20 02/25/2020 BMP + ioniz ed calci um, serum or plasm a Na 134 mmol/ L 138-14 6 Not Available [facility] [address] [place], [address], 02/25/2020 16:07:14 02/25/20 20 02/25/2020 BMP + ioniz ed calci um, serum or plasm a K 3.9 mmol/ L 3.5-4. 9 Not Available [facility] [address] [place], [address], 02/25/2020 16:07:14 02/25/20 20 02/25/2020 BMP + ioniz ed calci um, serum or plasm a cL 99 mmol/ L 98-109 Not Available [address], [address], 02/25/2020 16:07:14 02/25/20 20 02/25/2020 BMP + ioniz ed calci um, serum or plasm a TCO2 27 mmol/ L 24-29 Not Available [address], [address], 02/25/2020 16:07:14 02/25/20 20 02/25/2020 BMP + ioniz ed calci um, serum or plasm a angap 14 mmol/ L 10-20 Not Available [address], [address], 02/25/2020 16:07:14 02/25/20 20 02/25/2020 BMP + ioniz ed calci um, serum or plasm a ica 1.15 mmol/ L 1.12-1 .32 Not Available [address], [address], 02/25/2020 16:07:14 02/25/20 20 02/25/2020 BMP + ioniz ed calci um, serum or plasm a HCT 43 %pcv 38-51 Not Available [address], [address], 02/25/2020 16:07:14 02/25/20 20 02/25/2020 BMP + ioniz ed calci um, serum or plasm a Hb 14.6 g/dL 12-17 Not Available [address], [address], 02/25/2020 16:07:14 Result Notes None recorded. Procedures Surgical History Date Name Laterality Status Provider Name and Address Organization Details Recorded Time 02/25/20 Venipuncture - completed ELIE DILL, [address], [place], [address], [place] [facility] 02/25/2020 16:09:28 02/25/20 20 IV Start Procedure - completed ELIE DILL NP [address], [place], [address], [place] [facility] 02/25/2020 16:09:06 02/15/20 20 Venipuncture - completed Melisa Rodriguez NP [address], [place], [address], [place] [facility] 02/20/2020 10:33:31 biopsy of liver completed Melisa Rodriguez NP [address], [place], [address], [place] [facility] 02/15/2020 17:41:20 Imaging Results None recorded. Procedure Notes None recorded. Medical Equipment None Reported. Allergies Allergen ID Allergen Name Allergen Category Reaction Reaction Severity Criticality Documentation Date Start Date Code Code System Note Provider Name and Address Organization Details Recorded Time 682865 Ceclor medicatio n Not available Not available Not available 02/15/2020 94815 5 RxNorm Melisa Rodriguez NP [address], [place], [address], [place] [facility] 0 17:37:02 130451 clarithro mycin medicatio n Not available Not available Not available 02/15/2020 98633 RxNorm Melisa Rodriguez NP [address], [place], [address], [place] [facility] 0 17:37:11 823505 Bactrim medicatio n Not available Not available Not available 02/15/2020 70260 9 RxNorm Melisa Rodriguez NP [address], [place] [place], [address], [place] [facility] 0 17:37:42 359549 Substance with sulfonami de structure and antibacte rial mechanism of action (substanc e) medicatio n Not available Not available Not available 02/15/2020 33883 8003 SNOMED Melisa Rodriguez NP [address], [place], [address], [place] [facility] 0 17:38:06 [...] Every Day Smoker Melisa Rodriguez, GRISELDA [address] [facility], [place], [address], [place] [facility] 02/15/2020 17:35:16 Do You [...] Visiting Friends Or Family Or Going To Caodaism Or Club Meetings) 1 Or 2 Times [...] Artery Disease N COPD N Depression Y Cancer Y Stroke N High Cholesterol N Kidney Disease N Diabetes N Asthma Y Pulmonary Embolism N Hypertension N Gynecological HistoryNo gynecological history recorded. Obstetrics History GPAL:G 0 P 0 0 0 0 Past Encounters Encounter ID Performer Location Encounter Start Date Encounter Closed Date Diagnosis/Indication Diagnosis SNOMED-CT Code Diagnosis ICD10 Code Diagnosis IMO Codes Diagnosis Note [id number] Melisa Rodriguez NP [facility] [address] [facility] [address] 02/15/2020 17:29:34 02/18/2020 15:23:32 Fever 043811659 R50.9 Overview/H istory: Patient has suffered numerous [...] of this patient according to [facility] infection prevention protocols. In order to obtain further informatio n and compare any laboratory results/va lues, I have accessed old patient records. This informatio n was pertinent in my medical decision making today. Suspected COVID-19 12339 4004 Z03.89 Nausea and vomiting 1693 2000 R11.2 Nausea 768316388 R11.0 [id number] ELIE DILL NP [facility] [address] [place] [address] 02/25/2020 14:50:32 02/26/2020 10:38:53 Fever 225743271 R50.9 Community acquired pneumonia 054969349 J18.9 Exposure t o communicable disease 699489594 Z20.828 Systolic murmur 44838045 R01.1 Nausea 792259078 R11.0 Health Concerns Section Related Observation LastModified by Organization Detai ls LastModified Time None Recorded Concern Status LastModified by Organization Details LastModified Time None Recorded Advance Directives Directive N: Payers Insurance Date Sequence Insurance Name Policy Number Policy Boyd Covered Member ID Boyd Member ID Guarantor Name 02/15/2020 1 *SELF PAY* Esmer Mims [id number] Esmer Mims 04/25/2020 1 [place] [employer] Esmer Mims [id number] Esmer Mims 04/25/2020 2 [facility] (MEDICARE SUPPLEMENT) Esmer Mims [id number] Esmer Mims Notes Date Note Type Note Provider Name and Address Organization Details Recorded Time 0 text/html General HPI Template - DHReported by Patient 44 year old alert female who is not known to [facility] and not known to this [...] GERD. Melisa Rodriguez NP [address], [place], [address], [place] [facility] 06/04/2020 09:07:28 0 text/html General HPI Template - DHReported by Patient 44 y/o female with PMH of autoimmune [...] (negative). ELIE DILL NP [address], [place], [address], [place] [facility] 02/25/2020 17:34:57 OBGyn Episode No OBEpisode recorded.
--- OUTSIDE RECORDS SUMMARY | 2025-01-17 18:43 | XMS_ITS | Encounter Summary ---
Author Organization [facility] Address [address] [place] [address] [address] [place] [address] Phone Care Team Providers Care Assistant Professor Of Marine Biology Name Role Phone George Dillon MD Primary Care Provider [phone] Encounter Details Date Type Department Care Team (Late st Contact Info) Description 11/01/2017 Transcribe Orders [facility] [address] [place] [address] Kevin Rice MD [address] [place], [place] [address] Social History Tobacco Use Types Packs/Day Years [...] st Contact Info) Description 11/06/2024 Procedure Pass [facility] Fre[employer] Consult[facility] [address] [place] [address] 03/11/2025 1:45 PM EST Appointment [facility] [employer] [facility] [address] [place] [address] Kinjal Schofield MD [address] [place] [address] [email or web address] 05/21/2025 2:30 PM EST Office Visit [facility], Department of Neurology [address] [place] [address] Kinjal Schofield MD [address] [place] [address] [email or web address] documented as of this encounter Visit Diagnoses Not on filedocumented in this encounter Care Teams Assistant Professor Of Marine Biology Relationship Specialty Start Date End Date George Dillon MD [address] [place] [address] PCP - General Internal Medicine 05/10/17 documented as of this encounter Additional Source Comments The information contained in this document represents components of the legal health record. It is not the complete legal health record.[facility]
--- OUTSIDE RECORDS SUMMARY | 2025-01-17 18:43 | XMS_ITS | Clinical Summary ---
Author Organization [employer] Address [address] [place] [address] 7 [place] [address] Care Team Providers Care Branch Manager Trainee Name Role Phone Marian, Pilar Unavailable Unavailable [...] 2005 Mammogram 2015 COVID-19 Vaccine ( season) 2024 12/16/2022, 02/27/2021, 07/03/2020, Additional history exists Influenza Vaccine (#1) 2024 , 01/01/2021, 01/26/2017, Additional history exists Zoster [...] age to complete this topic Care Teams Branch Manager Trainee Relationship Specialty Start Date End Date Pilar Fonseca Health Navigator [facility] 09/01/22
--- OUTSIDE RECORDS SUMMARY | 2025-01-17 18:43 | XMS_ITS | Clinical Summary ---
Author Organization [facility] Address [address] [place] [address] Care Team Providers Care Hand Potter Name Role Phone WilmaGeorge Primary Care Provider [phone] Allergies Active Allergy Reactions Criticality Noted Date [...] Encounters Date Type Department Care Team Description 11/19/2024 Telephone [facility] [address] [place], [place] [id number] Loft Worker: Isaura Lim Telephone Intake, Staff PAC Appt Request - Established- Lisa Smith MD from Last 3 Months Social History [...] Care Team (Late st Contact Info) Description 07/02/2025 11:30 AM EDT Follow-Up [facility] [address] [place] [address] Loft Worker: Lisa Mackay MD [address] [place] [id number] Health Maintenance Due Date Last Done Comments Cervical Cancer Screening 1975 Cologuard 1975 FOBT / Fit Test 1975 HIV Screening 1975 HPV and Pap Smear 1975 Hepatitis C Screening 1975 Pap Smear 1975 Sigmoidoscopy 1975 Medicare AWV 1976 Hepatitis B Vaccines (1 of 3 - 19+ 3-dose series) 1994 Mammogram 2015 Alcohol/Substance Use Screening 03/28/2024 Depression Screening and Follow-Up 03/28/2024 Social Drivers of Health Salma ual Screening 03/28/2024 COVID-19 Vaccine (6 - 2024-2 6 season) 2024 12/16/2022, 01/07/2022, 02/27/2021, Additional history exists Influenza Vaccine (#1) 2024 , 01/06/2023, 01/01/2021, Additional history exists Colon Cancer Screening 11/07/2028 Colonoscopy 11/07/2028 11/07/2018 DTaP,Tdap,and Td Vaccines (5 - Td or Tdap) 11/25/2029 11/26/2019, 09/20/2014, 08/20/2010, Additional history exists RSV Vaccine (60+ years old a nd patients) (1 - 1-dose 75+ series) 2050 Pneumococcal Vaccine: Pediat chiqui (0-5 Years) and At-Risk Patients (6-50 Years) Completed 01/06/2023, 07/06/2021 Procedures * Due to [place] [employer] law, this organization might not be sharing negative HIV tests. Procedure Name Priority Date/Time Associated Diagnosis Comments HM COLONOSCOPY 11/07/2018 from Last 3 Months or Most Recently Relevant to Health Maintenance Results * Due to [place] state law, this organization might not be sharing negative HIV tests. * HM COLONOSCOPY (11/07/2018) 11/07/2018 us Onbase Scan [facility] Final Resu lt from Last 3 Months or Most Recently Relevant to Health Maintenance Insurance MEDICARE [facility] HSNO/FREE CARE Care Teams Hand Potter Relationship Specialty Start Date End Date George Dillon [address] [place] [address] PCP - General Internal Medicine 08/16/22
== END 2025-01-17 15:37 | disposition home or self-care (01) ==
LOC: HO.RHES 14:53
PROVIDERS: PCP Internal Medicine; Visit Provider Internal Medicine Rheumatology
DX: G56.03 Carpal tunnel syndrome, bilateral upper limbs (principal)
CPT/HCPCS: 20526; 99213; G2211

== ENCOUNTER → 2025-01-17 14:52 | Outpatient (BNVA) | payer MEDICARE, OTHER, MEDICAID, SELFPAY | PROVIDERS: PCP Internal Medicine; Visit Provider Internal Medicine Rheumatology | DX: G56.03 Carpal tunnel syndrome, bilateral upper limbs (principal); Z79.1 Long term (current) use of non-steroidal anti-inflammatories (NSAID); M65.949 Unspecified synovitis and tenosynovitis, unspecified hand | CPT/HCPCS: 20526; 99212; J2003; J3301 ==

== ENCOUNTER → 2025-02-18 12:42 | Outpatient (BNV) | payer MEDICARE, OTHER, MEDICAID, SELFPAY | PROVIDERS: PCP Internal Medicine; Visit Provider Radiology Diagnostic Radiology | DX: M79.642 Pain in left hand (principal); R53.1 Weakness | CPT/HCPCS: 73220 ==

== ENCOUNTER 2025-02-18 13:06 | Outpatient (REF) | payer MEDICARE, OTHER, MEDICAID, SELFPAY ==
--- NOTE | ~2025-02-18 | MR_ITS ---
EXAM: MR Hand Lt Wo/w Con TECHNIQUE: Multiplanar - multisequence imaging through an upper extremity, left hand, was performed without and with IV contrast. Contrast: 6 mL Gadavist INDICATION: Chronic left 4th and 5th MCP pain with history of trigger finger, Central palm pain, tenosynovitis of finger, left hand weakness, chronic polyarthralgias PRIOR: X-ray from 07/03/2024 FINDINGS: Ligaments: Collateral ligaments appear intact. Scapholunate and lunotriquetral ligament are grossly intact. Muscles, tendons, pulleys: There is no muscle edema, atrophy, or fatty streaking. There is no bowstringing of flexor tendons. Flexor tendons appear intact. There is a marker placed on the skin palmar to the third metacarpal neck. No abnormality is seen in this region. Extensor tendons are intact. Articular cartilage/Joint capsular structures: Joint capsule structures are intact. There is no joint effusion. No articular cartilage defects are identified. There is a multiloculated cystic lesion that is partially imaged and located palmar to the radial styloid measuring 3 x 13 mm (AP by transverse). Trace fluid signal internally with thin enhancing capsule and septations. There is no synovial thickening or abnormal enhancement. Bones/Marrow: There are no marrow replacing lesions, bone marrow edema, or areas of hyperenhancement MR/MR hand LT wo/w con IMPRESSION: There is a partially imaged synovial cyst or ganglion volar to the radial styloid measuring 3 x 13 mm (AP by transverse). No abnormality was found to explain the patient's symptoms. Electronically signed by: Casimiro Luna MD 02/18/2025 02:20 PM MANJINDER
--- OUTSIDE RECORDS SUMMARY | 2025-02-18 17:42 | XMS_ITS | Clinical Summary ---
Author Organization [facility] Address [address] [place] [address] [place] [address] Phone Care Team Providers Care Naval Science Teacher Name Role Phone George Dillon MD Primary Care Provider [phone] Allergies Active Allergy Reactions Criticality Noted Date [...] a day. 60 tablet 3 11/07/19 Active Social History Tobacco Use Types Packs/Day [...] st Contact Info) Description 11/06/2024 Procedure Pass [facility] Outside Parts Salesman [address] [address] 03/11/2025 1:45 PM EST Appointment [address] [address] Kinjal Schofield MD [address] [place] [address] [email or web address] 05/21/2025 2:30 PM EST Office Visit [facility], Department of Neurology [address] [place] [address] Kinjal Schofield MD [address] [place] [address] [email or web address] Health Maintenance Due Date Last Done Comments [...] & B [facility] MEDICARE ENHANCE SUPPLEMENT [facility] & B [employer] MEDICARE ENHANCE SUPPLEMENT [facility] PART [facility] & B [employer] MEDICARE ENHANCE SUPPLEMENT [facility] [address] MEDICARE PART A & B [facility] [facility] MEDICARE ENHANCE SUPPLEMENT [facility] MEDICARE PART A & B [facility] MEDICARE ENHANCE SUPPLEMENT [facility] & B [facility] MEDICARE ENHANCE SUPPLEMENT [facility] [address] [place] [phone] MEDICARE PART A & B [facility] MEDICARE ENHANCE SUPPLEMENT [facility] [address] [place] [address] MEDICARE PART A & B [facility] MEDICARE ENHANCE SUPPLEMENT [facility] MEDICARE PART A & B [facility] MEDICARE ENHANCE SUPPLEMENT [facility] Care Teams Naval Science Teacher Relationship Specialty Start Date End Date George Dillon MD [address] [place] [address] PCP - General Internal Medicine 05/10/17 Additional Source Comments The information contained in this document represents components of the legal health record. It is not the complete legal health record.[facility]
--- OUTSIDE RECORDS SUMMARY | 2025-02-18 17:42 | XMS_ITS | Clinical Summary ---
Author Organization [facility] Address [address] [place] [address] Care Team Providers Care Reimbursement Spec Name Role Phone WilmaGeorge Primary Care Provider [phone] Allergies Active Allergy Reactions Criticality Noted Date [...] Type Department Care Team Description 11/19/2024 Telephone [facility] [address] [place], [place] [id number] Medical Coordinator Pesticide Use: Isaura Lim Telephone Intake, Staff PAC Appt [...] Info) Description 07/02/2025 11:30 AM EDT Follow-Up [facility] [address] [place] [address] Medical Coordinator Pesticide Use: Lisa Mackay MD [address] [place] [address] [phone] Health Maintenance Due Date Last Done Comments [...] Drivers of Health Salma ual Screening 03/28/2024 Influenza Vaccine (#1) 2024 , 01/06/2023, 01/01/2021, Additional history exists COVID-19 Vaccine (6 - 2024-2 6 season) 2024 12/16/2022, 01/07/2022, 02/27/2021, Additional history exists Colon Cancer Screening 11/07/2028 Colonoscopy 11/07/2028 11/07/2018 DTaP,Tdap,and Td Vaccines (5 - Td or Tdap) 11/25/2029 11/26/2019, 09/20/2014, 08/20/2010, Additional history exists Pneumococcal Vaccine: Pediat chiqui (0-5 Years) and At-Risk Patients (6-50 Years) Completed 01/06/2023, 07/06/2021 Procedures * Due to [place] state law, this organization might not be sharing negative HIV tests. Procedure Name Priority Date/Time Associated Diagnosis Comments COLONOSCOPY 11/07/2018 from Last 3 Months or Most Recently Relevant to Health Maintenance Results * Due to [place] [employer] law, this organization might not be sharing negative HIV tests. * COLONOSCOPY (11/07/2018) 11/07/2018 us Onbase Scan [facility] Resu lt from Last 3 Months or Most Recently Relevant to Health Maintenance Insurance MEDICARE [facility] NO/FREE CARE Care Teams Reimbursement Spec Relationship Specialty Start Date End Date George Dillon: [id number] [address] [place] [id number] PCP - General Internal Medicine 08/16/22
--- OUTSIDE RECORDS SUMMARY | 2025-02-18 17:42 | XMS_ITS | Encounter Summary ---
Author Organization [facility] Address [address] [place] [address] [place] [phone] Phone Care Team Providers [employer] Market Consultant Name Role Phone George Dillon MD Primary Care Provider [phone] Reason for Referral * Physical Therapy (Routine) - Closed Specialty Diagnoses / Procedures Referred By Contac t Referred To Contact Physical Therapy Diagnoses Encounter for rehabilitation System, Provider Not In, [facility] [id number] [place] [address] Phone: tel: Referral ID Status Reason Start Date Expiration Date Visits Re quested Visits Authorized [id number] Closed 11/01/2017 11/01/2018 60 60 Encounter Details Date Type Department Care Team (Latest Contact Info) Description 11/01/2017 Transcribe Orders [facility] [address] [place] [address] Kevin Rice, DO [address] [place] [phone] Encounter for rehabilitation (Primary Dx) Social History [...] st Contact Info) Description 11/06/2024 Procedure Pass [facility] [place] [address] [place] [address] 03/11/2025 1:45 PM EST Appointment [address] [address] Kinjal Schofield MD [address] [place] [address] [email or web address] 05/21/2025 2:30 PM EST Office Visit [facility], Department of Neurology [address] [place] [address] Kinjal Schofield MD [address] [place] [address] [email or web address] Scheduled Referrals Name Type Priority Associated Diagnoses Orde r Schedule Ambulatory referral to [facility] Physical Therapy Outpatient Referral Routine Encounter for rehabilitation Ordered: 11/01/2017 documented as of this encounter Visit Diagnoses Diagnosis Encounter for rehabilitation- Primary documented in this encounter Care Teams Solutions Market Consultant Relationship Specialty Start Date End Date George Dillon MD [address] [place] [phone] PCP - General Internal Medicine 05/10/17 documented as of this encounter Additional Source Comments The information contained in this document represents components of the legal health record. It is not the complete legal health record.[facility]
--- OUTSIDE RECORDS SUMMARY | 2025-02-18 17:42 | XMS_ITS | Encounter Summary ---
Author Organization [facility] Address [address] [place] [address] [address] [place] [address] Phone Care Team Providers Care Clinical Studies Specialist Name Role Phone George Dillon MD Primary Care Provider [phone] Encounter Details Date Type Department Care Team (Late st Contact Info) Description 11/01/2017 Transcribe Orders [facility] [address] [place] [address] Kevin Rice MD [address] [place], [place] [address] Social History Tobacco Use Types Packs/Day Years [...] st Contact Info) Description 11/06/2024 Procedure Pass [facility] Licensed [employer] [place] [address] [place] [address] 03/11/2025 1:45 PM EST Appointment [facility] Licensed [employer] [place] [address] [place] [address] Kinjal Schofield MD [address] [place] [address] [email or web address] 05/21/2025 2:30 PM EST Office Visit [facility], Department of Neurology [address] [place] [address] Kinjal Schofield MD [address] [place] [address] [email or web address] documented as of this encounter Visit Diagnoses Not on filedocumented in this encounter Care Teams Clinical Studies Specialist Relationship Specialty Start Date End Date George Dillon MD [address] [place] [phone] PCP - General Internal Medicine 05/10/17 documented as of this encounter Additional Source Comments The information contained in this document represents components of the legal health record. It is not the complete legal health record.[facility]
--- OUTSIDE RECORDS SUMMARY | 2025-02-18 17:42 | XMS_ITS | Clinical Summary ---
Author Organization [employer] Address [address] [place] [address] [address] [place] [address] Care Team Providers Care Production Associate Name Role Phone Marian, Pilar Unavailable Unavailable [...] age to complete this topic Care Teams Production Associate Relationship Specialty Start Date End Date Pilar [facility] 09/01/22
== END 2025-02-18 13:07 | disposition home or self-care (01) ==
LOC: HO.MRI 13:06
PROVIDERS: PCP Internal Medicine; Visit Provider Internal Medicine Rheumatology
DX: R29.898 Other symptoms and signs involving the musculoskeletal system (principal); M79.642 Pain in left hand; M65.949 Unspecified synovitis and tenosynovitis, unspecified hand
CPT/HCPCS: 73220; A9585